=== PATIENT | male | born 1945 | race Caucasian/White ===

== ENCOUNTER → 2017-01-19 | Outpatient (CLI) | payer MEDICARE ==
[2017-01-19 12:16] LABS: HEMATOCRIT 43.8 % (37.9-51.0); HEMOGLOBIN 14.9 g/dL (13.5-17.0); HGB HCT DIFFERENCE 0.9; MEAN CORPUSCULAR HEMOGLOBIN 33.8 pg (27.0-33.4); MEAN CORPUSCULAR VOLUME 99 fl (80-97); RED CELL DISTRIBUTION WIDTH 14.8 % (11.5-14.0)
[2017-01-19 12:49] LABS: ANION GAP 11 (5-19); BLOOD UREA NITROGEN 20 mg/dL (7-20); CALCIUM 9.2 mg/dL (8.4-10.2); CARBON DIOXIDE 28 mmol/L (22-30); CHLORIDE 104 mmol/L (98-107); CREATININE RESULT 0.73 mg/dL (0.52-1.25); GLUCOSE 86 mg/dL (75-110); POTASSIUM 4.5 mmol/L (3.6-5.0); SODIUM 142.5 mmol/L (137-145)
--- NOTE | 2017-01-19 19:38 | EKG REPORT ---
SEVERITY:- BORDERLINE ECG - SINUS RHYTHM PROBABLE LEFT ATRIAL ABNORMALITY BORDERLINE PROLONGED QT INTERVAL : Confirmed by: Dinesh Reilly 19-Jan-2017 19:36:55
== END ==
LOC: OD 11:11
PROVIDERS: ATTEND Orthopaedic Surgery
DX: Z01.810 Encounter for preprocedural cardiovascular examination (principal); Z01.811 Encounter for preprocedural respiratory examination; Z01.812 Encounter for preprocedural laboratory examination; Z01.818 Encounter for other preprocedural examination
CPT/HCPCS: 36415; 80048; 85027; 93005; 93010

== ENCOUNTER → 2017-01-24 | Outpatient (CLI) | payer MEDICARE ==
[2017-01-24 14:09] LABS: PROTHROMBIN TIME 15.7 SEC (11.4-15.4)
== END ==
LOC: OD 13:29
PROVIDERS: ATTEND Orthopaedic Surgery
DX: M80.00XA Age-related osteoporosis with current pathological fracture, unspecified site, initial encounter for fracture (principal)
CPT/HCPCS: 36415; 85610

== ENCOUNTER 2017-01-26 20:00 | Inpatient (IN) | payer MEDICARE ==
--- NOTE | 2017-01-26 20:06 | ER Document Report ---
ED Fall - General Stated Complaint: FALL/LEG PAIN Mode of Arrival: Medic Information source: Patient, Emergency Med Personnel TRAVEL OUTSIDE OF THE [place] IN LAST 30 DAYS: No - HPI Occurred: This evening Where: Home Context: Fell from standing - "LEG GAVE OUT" Associated symptoms: Difficulty walking Location of injury/pain: Hip Quality of pain: Other - "HURTS" - Related data Allergies/Adverse Reactions: No Known Allergies Allergy (Verified 01/26/17 20:24) Past Medical History - General Information source: Patient, Emergency Med Personnel - Social History Smoking Status: Former Smoker Cigarette use (# per day): No Chew tobacco use (# tins/day): No Frequency of alcohol use: None Drug Abuse: None Lives with: Family Family History: Reviewed & Not Pertinent Patient has suicidal ideation: No Patient has homicidal ideation: No - Past Medical History Cardiac Medical History: Reports: Hx Hypertension Denies: Hx Coronary Artery Disease, Hx Heart Attack Pulmonary Medical History: Reports: Hx Asthma - as a child Denies: Hx Bronchitis, Hx COPD, Hx Pneumonia Neurological Medical History: Denies: Hx Cerebrovascular Accident, Hx Seizures Endocrine Medical History: Reports: None Renal/ Medical History: Reports: None Malignancy Medical History: Reports None GI Medical History: Reports: Hx Hepatitis - HEP. C Musculoskeltal Medical History: Reports Hx Arthritis Other: RECENT SPINAL COMPRESSION Fx L-4, VERTEBROPLASTY 01/25 Psychiatric Medical History: Reports: None Past Surgical History: Reports: Hx Cholecystectomy, Other - L-4 VERTEBROPLASTY . Denies: Hx Pacemaker - Immunizations Hx Diphtheria, Pertussis, Tetanus Vaccination: Yes Review of Systems - Review of Systems Constitutional: No symptoms reported EENT: No symptoms reported Cardiovascular: No symptoms reported Respiratory: No symptoms reported Gastrointestinal: No symptoms reported Genitourinary: No symptoms reported Musculoskeletal: See HPI Skin: No symptoms reported Neurological/Psychological: No symptoms reported Physical Exam - Vital signs Vitals: Temp Pulse Resp BP Pulse Ox 98.2 F 20 L 18 153/75 H 94 01/26/17 20:18 01/26/17 20:18 01/26/17 20:18 01/26/17 20:18 01/26/17 20:18 Interpretation: Hypertensive - General General appearance: Appears well, Alert In distress: None - HEENT Head: Normocephalic Eyes: Normal Conjunctiva: Normal Ears: Normal Nasal: Normal Mouth/Lips: Normal Mucous membranes: Dry Neck: Normal, Supple - Respiratory Respiratory status: No respiratory distress Breath sounds: Rhonchi - FEW, BASILAR - Cardiovascular Rhythm: Regular Heart sounds: Normal auscultation Murmur: No - Abdominal Inspection: Obese - Back Back: Normal, Tender - SLIGHTLY, OVER L-4 - Extremities General upper extremity: Normal inspection General lower extremity: Normal inspection Hip: Other - PASSIVE ROM BOTH HIPS PAINLESS Thigh: Normal Knee: Normal Calf: Normal - Neurological Neuro grossly intact: Yes Cognition: Confused, Inattentive Orientation: Disoriented to time [place] Coma Scale Eye Opening: Spontaneous [place] Coma Scale Verbal: Oriented [place] Coma Scale Motor: Obeys Commands [place] Coma Scale Total: 15 Cerebellar coordination: Other - MODERATE INTENTION TREMOR Sensory: Normal, Other - NO SADDLE ANESTHESIA - Psychological Associated symptoms: Agitated, Confused, Tangential speech Notes: SOME OF SPEECH IS NONSENSICAL. WHEN ASKED A QUESTION, OFTEN STOPS ANSWER IN MID -SENTENCE. - Skin Skin Temperature: Warm Skin Moisture: Dry Skin Color: Normal Skin Turgor: Elastic Course - Vital Signs Vital signs: Temp Pulse Resp BP Pulse Ox 98.2 F 78 20 148/76 H 97 01/26/17 20:18 01/27/17 02:45 01/27/17 02:45 01/27/17 02:45 01/27/17 02:45 - Laboratory Result Diagrams: 01/27/17 01:40 01/27/17 01:40 Laboratory results interpreted by me: 01/27/17 01/27/17 01/27/17 01:40 01:40 01:40 MCV 99 H MCH 33.8 H RDW 14.1 H Plt Count 91 L BUN 22 H Total Bilirubin 3.3 H Direct Bilirubin 1.4 H AST 149 H Alkaline Phosphatase 203 H Creatine Kinase 1246 H CK-MB (CK-2) 11.90 H Urine Ketones Urine Blood Salicylates < 1.0 L Acetaminophen < 10 L 01/27/17 02:40 MCV MCH RDW Plt Count BUN Total Bilirubin Direct Bilirubin AST Alkaline Phosphatase Creatine Kinase CK-MB (CK-2) Urine Ketones TRACE H Urine Blood SMALL H Salicylates Acetaminophen - Diagnostic Test Radiology reviewed: Image reviewed, Reports reviewed - EKG Interpretation by [place] EKG shows normal: Sinus rhythm, Intervals, QRS Complexes, ST-T Waves. abnormal : [place] Rate: Normal Rhythm: NSR [place]/QRS: Left axis deviation - BORDERLINE P Waves: LAE - Consults DR. CHANCE Time consulted: 03:30 Consulted provider: will come to ER Discharge - Discharge Clinical Impression: Weakness, Delirium Rhabdomyolysis Qualifiers: Rhabdomyolysis type: traumatic Encounter type: initial encounter Qualified Code (s): T79.6XXA - Traumatic ischemia of muscle, initial encounter Condition: Good Disposition: ADMITTED INPATIENT Admitting Provider: Hospitalist Unit Admitted: [facility]
[2017-01-26] MEDS ORDERED: ONDANSETRON 4 MG TAB.RAPDIS PO ONE (20:20)
[2017-01-26] MEDS ORDERED: HYDROMORPHONE HCL INJ/PF 2 MG/ML AMPULE IV ONE (20:20)
[2017-01-26] MEDS ORDERED: LORAZEPAM INJ 2 MG/1 ML VIAL IM ONE (21:40)
[2017-01-27 02:01] LABS: ABSOLUTE BASOPHILS # (AUTO) 0.1 10^3/uL (0.0-0.2); ABSOLUTE EOSINOPHILS # (AUTO) 0.1 10^3/uL (0.0-0.6); ABSOLUTE LYMPHOCYTES (AUTO) 2.1 10^3/uL (0.5-4.7); ABSOLUTE MONOCYTES (AUTO) 1.1 10^3/uL (0.1-1.4); ABSOLUTE NEUT (AUTO) 6.5 10^3/uL (1.7-8.2); BASOPHILS % (AUTO) 0.5 % (0-2); EOSINOPHILS % (AUTO) 0.7 % (0-6); HEMATOCRIT 48.6 % (37.9-51.0); HEMOGLOBIN 16.5 g/dL (13.5-17.0); HGB HCT DIFFERENCE 0.9; LYMPHOCYTES % (AUTO) 21.4 % (13-45); MEAN CORPUSCULAR HEMOGLOBIN 33.8 pg (27.0-33.4); MEAN CORPUSCULAR VOLUME 99 fl (80-97); MONOCYTES % (AUTO) 11.5 % (3-13); RED CELL DISTRIBUTION WIDTH 14.1 % (11.5-14.0); SEGMENTED NEUTROPHILS % (AUTO) 65.9 % (42-78); WHITE BLOOD COUNT 9.9 10^3/uL (4.0-10.5)
[2017-01-27 02:04] LABS: ALANINE AMINOTRANSFERASE 41 U/L (21-72); ALBUMIN 3.8 g/dL (3.5-5.0); ALKALINE PHOSPHATASE 203 U/L (38-126); ANION GAP 10 (5-19); ASPARTATE AMINO TRANSFERASE 149 U/L (17-59); BILIRUBIN,DIRECT 1.4 mg/dL (0.0-0.4); BILIRUBIN,TOTAL 3.3 mg/dL (0.2-1.3); BLOOD UREA NITROGEN 22 mg/dL (7-20); CALCIUM 9.9 mg/dL (8.4-10.2); CARBON DIOXIDE 30 mmol/L (22-30); CHLORIDE 101 mmol/L (98-107); CREATINE KINASE 1246 U/L (55-170); CREATININE RESULT 0.77 mg/dL (0.52-1.25); GLUCOSE 96 mg/dL (75-110); POTASSIUM 4.7 mmol/L (3.6-5.0); SODIUM 140.5 mmol/L (137-145); TOTAL PROTEIN 8.1 g/dL (6.3-8.2)
[2017-01-27 02:07] LABS: ALCOHOL < 10 mg/dL (NONE DETECTED)
[2017-01-27 02:24] LABS: TROPONIN I < 0.012 ng/mL
[2017-01-27] MEDS ORDERED: NORMAL SALINE 1000 ML 1,000 ML IV ONE (03:00)
[2017-01-27 03:24] LABS: APPEARANCE,URINE CLEAR; BILIRUBIN,URINE NEGATIVE (NEGATIVE); GLUCOSE, URINE NEGATIVE (NEGATIVE); KETONES,URINE TRACE mg/dL (NEGATIVE); LEUKOCYTE ESTERASE,URINE NEGATIVE (NEGATIVE); NITRITE,URINE NEGATIVE (NEGATIVE); PROTEIN,URINE NEGATIVE (NEGATIVE); URINE SPECIFIC GRAVITY 1.008; UROBILINOGEN,URINE NEGATIVE mg/dL (<2.0)
[2017-01-27 03:37] LABS: URINE BARBITURATES SCREEN NEGATIVE; URINE METHADONE SCREEN NEGATIVE; URINE PHENCYCLIDINE SCREEN NEGATIVE
[2017-01-27 03:46] LABS: ADD ON TESTING BLD IN LAB ACKNOWLEDGE
[2017-01-27 03:46] LABS: URINE OPIATES LOW UNCONFIRMED POSITIVE
[2017-01-27 03:54] LABS: MAGNESIUM 2.1 mg/dL (1.6-2.3)
[2017-01-27] MEDS ORDERED: MAGNESIUM HYDROXIDE SUSP 30 ML UDCUP PO PRN (05:02)
[2017-01-27] MEDS ORDERED: ACETAMINOPHEN 325 MG TABLET PO PRN (05:08)
--- NOTE | 2017-01-27 05:23 | PDOC H&P ---
History of Present Illness Admission Date/PCP: 01/27/17 03:37 Rosalinda Paul NP Patient complains of: fall X 2, back pain History of Present Illness: RADHA YEBOAH JR is a 71 year old male with past medical history remarkable for reported hypertension, childhood asthma, arthritis, and hepatitis C, status post vertebroplasty on the fourth of this month for an L4 compression fracture, who presents to the emergency room for evaluation of above complaints. Patient has been discussed with emergency room physician who evaluated the patient. Patient is globally disoriented and is able to provide no history whatsoever in terms of acute or chronic events, review of systems, personal habits, family history, etc. No friends or family are present. No old inpatient records available for review. When asked what year it was, "1942;" when asked where he was, "[address] When asked if anything had happened earlier in the day, he stated "nothing eventful." When I asked him if he had fallen, he then stated "yes." Denied loss of consciousness or head trauma. States his legs "just gave out." Also denied nausea vomiting, fever chills, diarrhea or dysuria. Denied headache chest or abdominal pain. answers to Number of other basic questions were not related to the questions. , Emergency room physician notes reviewed. No further information available this point in time. . Laboratory results are listed in [facility] and are reviewed. X-ray summary results are listed below, with full report(s) reviewed. . EKG reviewed. And compared to a tracing from January 19 of this year. Social history/personal habits: . No children. States he lives with his landlord. No tobacco use since 2009. Denies alcohol or illicit drug use. Allergies/adverse reactions NKDA. Home medications Home medications initially autopopulated into [facility] may not accurately reflect patient's true medications, dosages, and/or frequencies. 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 Unfortunately, patient uncertain of medications/dosages/frequencies. REVIEW OF SYSTEMS: See history and present illness.No further information available this point in time. PHYSICAL EXAMINATION: Blood pressure 139/85. 96% saturation on room air. Pulse 84 and regular. Respirations are 16 and unlabored. 5 feet 9 inches tall. 99.8 kg. BMI 32.5 kg /m. Temperature 98.2. Obese otherwise well-developed male appearing a number of years younger than his stated age. Pleasant awake alert and cooperative. Somewhat anxious, although no dash agitation. Complaining of lower back pain. Also complaining occasionally of right hip pain. Skin is warm and dry. No grossly obvious evidence of rash in areas of skin examined. No subcutaneous nodules palpated. ENT: Hearing grossly normal to normal conversation. Tongue midline on protrusion pink and slightly tacky. No Kinney sign. Eyes: No scleral icterus. Pupils equal and reactive to light at 4 mm. [place] conjunctivae. No raccoon eyes. Neck is supple and nontender to gentle active range of motion and palpation. Midline trachea. No palpable thyroid nodule mass enlargement or tenderness. Lymphatic: No palpable cervical or clavicular nodes. Neck and lymphatic exams limited by patient body habitus. Psychiatric: Difficult to adequately evaluate due to his current status. See history and present illness. Lungs: Auscultation reveals clear and equal breath sounds bilaterally. No use of accessory respiratory muscles. Cardiovascular: Heart regular rate and rhythm, without gallop murmur or rub. No carotid or abdominal aortic bruits. No ankle or pedal edema. palpable dorsalis pedis pulses. Abdomen: soft, obese, slightly distended nontender with positive bowel sounds. Unable to adequately evaluate abdomen for masses or organomegaly due to distention and body habitus. Extremities: Hands and feet are warm and dry. No calf tenderness to compression. No grossly obvious visual evidence of calf swelling. Gentle manipulation of upper and lower extremities fails to reveal any obvious evidence of injury or instability to involved major joints, including both active and passive range of motion right hip. Neurologic: Moves all 4 extremities grossly normally. Patellar reflexes absent. Absent Babinski. Light touch can't be adequately determined due to his current mental status.. Dorsiflexion and plantarflexion of feet 5 / 5 and symmetric. No rigidity. No nystagmus. Past Medical History Past Medical History: See history and present illness. No further information available this point in time, except as noted below. Cardiac Medical History: Reports: Hypertension Denies: Coronary Artery Disease, Myocardial Infarction Pulmonary Medical History: Reports: Asthma - as a child Denies: Bronchitis, Chronic Obstructive Pulmonary Disease (COPD), Pneumonia Neurological Medical History: Denies: Seizures Endocrine Medical History: Reports: None Renal/ Medical History: Reports: None Malignancy Medical History: Reports: None GI Medical History: Reports: None, Hepatitis - HEP. C Musculoskeltal Medical History: Reports: Arthritis Psychiatric Medical History: Reports: None Hematology: Denies: Anemia Past Surgical History Past Surgical History: Reports: Cholecystectomy, Orthopedic Surgery - L-4 VERTEBROPLASTY 01/25/17 Denies: Pacemaker Social History Information Source: Patient, Emergency Med Personnel, [facility] Records Lives with: Other - His landlord Smoking Status: Former Smoker Frequency of Alcohol Use: None Drugs: None - Advance Directive Resuscitation Status: Full Code Surrogate healthcare decision maker:: Uncertain at this point in time. Family History Family History: Reviewed & Not Pertinent Parental Family History Reviewed: No - patient can't provide reliable information. Children Family History Reviewed: NA Sibling(s) Family History Reviewed.: No - patient can't provide reliable information. Medication/Allergy Home Medications: Sertraline HCl [Zoloft 50 Mg Tablet] 50 mg PO DAILY 08/12/12 Oxycodone HCl/Acetaminophen [Percocet 5-325 mg Tablet] 1 tab PO Q4H 09/11/12 Furosemide [Furosemide] 20 mg PO DAILY 01/27/17 Nadolol [Nadolol] 40 mg PO DAILY 01/27/17 Pramipexole Di-HCl [Pramipexole Dihydrochloride] 0.25 mg PO DAILY 01/27/17 Spironolactone [Spironolactone] 50 mg PO DAILY 01/27/17 Tamsulosin HCl [Tamsulosin HCl] 0.4 mg PO DAILY 01/27/17 Tizanidine HCl [Tizanidine HCl] 4 mg PO TID 01/27/17 Allergies/Adverse Reactions: No Known Allergies Allergy (Verified 01/26/17 20:24) Physical Exam Vital Signs: Temp Pulse Resp BP Pulse Ox 98.2 F 78 20 148/76 H 97 01/26/17 20:18 01/27/17 02:45 01/27/17 02:45 01/27/17 02:45 01/27/17 02:45 Results Impressions: Lumbar Spine X-Ray 01/26/17 20:19 IMPRESSION: SPONDYLOSIS WITHOUT BONE LESION OR FRACTURE. Head CT 01/27/17 00:14 IMPRESSION: No acute findings. Chest X-Ray 01/27/17 00:16 IMPRESSION: Pulmonary vascular congestion. Assessment & Plan - Diagnosis (1) Acute encephalopathy Is this a current diagnosis for this admission?: YesPlan: Uncertain etiology at this point in time. Maybe an element of chronic underlying dementia. Ammonia level pending. Supportive care at this point in time. (2) Back pain Qualifiers: Back pain location: low back pain Chronicity: unspecified Back pain laterality: unspecified Sciatica presence: unspecified whether sciatica present Qualified Code(s): M54.5 - Low back pain Is this a current diagnosis for this admission?: YesPlan: Suspected due to recent L4 compression fracture, along with subsequent vertebroplasty. When necessary pain medication. (3) Elevated LFTs Is this a current diagnosis for this admission?: YesPlan: Suspect due to underlying hepatitis C. Follow-up chemistry. (4) Fall Qualifiers: Encounter type: initial encounter Qualified Code(s): W19.XXXA - Unspecified fall, initial encounter Is this a current diagnosis for this admission?: YesPlan: Physical therapy consult. I have strongly encouraged patient not to get out of bed without notifying staff , to avoid a fall with injury. Knee high SCDs for DVT prophylaxis; with underlying thrombocytopenia, will forego medical prophylaxis at this point in time. Impression and plans were discussed with patient, who concurs. Time spent in evaluation and management of patient: 58 minutes. (5) Rhabdomyolysis Qualifiers: Rhabdomyolysis type: traumatic Encounter type: initial encounter Qualified Code(s): T79.6XXA - Traumatic ischemia of muscle, initial encounter Is this a current diagnosis for this admission?: YesPlan: IV fluids. Serial CPK. (6) Thrombocytopenia Is this a current diagnosis for this admission?: YesPlan: Follow-up CBC with differential. (7) Hepatitis C Qualifiers: Viral hepatitis chronicity: chronic Hepatic coma status: without hepatic coma Qualified Code(s): B18.2 - Chronic viral hepatitis C Is this a current diagnosis for this admission?: Yes - Inpatient Certification Based on my medical assessment, after consideration of the patient's comorbidities, presenting symptoms, or acuity I expect that the services needed warrant INPATIENT care.: Yes I certify that my determination is in accordance with my understanding of Medicare's requirements for reasonable and necessary INPATIENT services [42 CFR 412.3e].: Yes Medical Necessity: Need Close Monitoring Due to Risk of Patient Decompensation, Need For IV Fluids, Risk of Complication if Not Cared For in Hospital, Risk of Diagnosis Which Will Require Inpatient Eval/Care/Monitoring Post Hospital Care: D/C or Transfer Summary
[2017-01-27] MEDS: NORMAL SALINE 1000 ML 1,000 ML IV PRN ×3 (05:24→10:59)
[2017-01-27] MEDS ORDERED: THIAMINE HCL 100 MG TABLET PO ONE (06:00)
[2017-01-27 06:32] LABS: PARTIAL THROMBOPLASTIN TIME 32.5 SEC (23.5-35.8); PROTHROMBIN TIME 15.6 SEC (11.4-15.4)
[2017-01-27 07:09] LABS: TROPONIN I < 0.012 ng/mL
--- NOTE | 2017-01-27 07:50 | EKG REPORT ---
SEVERITY:- ABNORMAL ECG - SINUS RHYTHM PROBABLE LEFT ATRIAL ABNORMALITY BORDERLINE LEFT AXIS DEVIATION CONSIDER OLD INFERIOR IA : Confirmed by: Lyle Faye MD 27-Jan-2017 07:50:08
[2017-01-27] MEDS: FOLIC ACID 1 MG TABLET PO SCH (10:03)
[2017-01-27] MEDS: THIAMINE HCL 100 MG TABLET PO SCH (10:03)
[2017-01-27] MEDS: DOCUSATE SODIUM 100 MG CAPSULE PO SCH ×2 (10:03→17:20)
[2017-01-27] MEDS: MULTIVITAMIN TABLET PO SCH (10:03)
[2017-01-27] MEDS ORDERED: FUROSEMIDE INJ/PF 40 MG/4 ML SDV IV ONE (10:45)
[2017-01-27] MEDS: LACTULOSE SYRUP 20 GM/30 ML UDCUP PO SCH ×3 (11:37→17:20)
[2017-01-27] MEDS: KETOROLAC TROMETHAMINE INJ/PF 30 MG/1 ML SDV IV PRN ×3 (11:38→23:35)
[2017-01-27 11:57] LABS: ALANINE AMINOTRANSFERASE 48 U/L (21-72); ALBUMIN 3.3 g/dL (3.5-5.0); ALKALINE PHOSPHATASE 163 U/L (38-126); ANION GAP 9 (5-19); ASPARTATE AMINO TRANSFERASE 146 U/L (17-59); BILIRUBIN,TOTAL 3.3 mg/dL (0.2-1.3); BLOOD UREA NITROGEN 20 mg/dL (7-20); CALCIUM 9.1 mg/dL (8.4-10.2); CARBON DIOXIDE 27 mmol/L (22-30); CHLORIDE 103 mmol/L (98-107); CREATINE KINASE 1423 U/L (55-170); CREATININE RESULT 0.71 mg/dL (0.52-1.25); GLUCOSE 89 mg/dL (75-110); POTASSIUM 4.3 mmol/L (3.6-5.0); SODIUM 138.8 mmol/L (137-145); TOTAL PROTEIN 7.3 g/dL (6.3-8.2)
--- NOTE | 2017-01-27 13:13 | PDOC PROGRESS REPORT ---
Subjective Progress Note for:: 01/27/17 Subjective:: The patient was seen earlier today on rounds. The patient would awaken and speak but was noted follow sleep before finishing his thought. Patient was able to give very specific details regarding his hepatitis treatment but then was confused about his current location. The patient denies any nausea, vomiting, diarrhea, shortness of breath, dizziness, chest pain, heart palpitations, fevers, or chills. The patient has remained afebrile. Blood pressures have been in a good range. When prompted the patient voices no other concerns at this time. Review of systems: The rest of the review of systems is negative. Physical Exam Vital Signs: Temp Pulse Resp BP Pulse Ox 99.0 F 72 20 125/73 98 01/27/17 07:27 01/27/17 07:27 01/27/17 07:27 01/27/17 07:27 01/27/17 07:27 Intake & Output 01/25/17 01/26/17 01/27/17 23:59 23:59 23:59 Output Total 875 Balance -875 General appearance: PRESENT: no acute distress, well-developed, well-nourished Head exam: PRESENT: atraumatic, normocephalic Eye exam: PRESENT: conjunctiva pale, EOMI, nystagmus, PERRLA, scleral icterus Ear exam: PRESENT: normal external ear exam Mouth exam: PRESENT: moist, tongue midline Neck exam: ABSENT: carotid bruit, JVD, lymphadenopathy, thyromegaly Respiratory exam: PRESENT: crackles - Bilateral basal crackles, symmetrical, unlabored. ABSENT: rales, rhonchi, tachypnea, wheezes Cardiovascular exam: PRESENT: RRR. ABSENT: diastolic murmur, rubs, systolic murmur Pulses: PRESENT: normal dorsalis pedis pul Vascular exam: PRESENT: normal capillary refill GI/Abdominal exam: PRESENT: ascites, firm, normal bowel sounds, soft. ABSENT: distended, guarding, mass, rebound, tenderness Rectal exam: PRESENT: deferred Extremities exam: PRESENT: full ROM. ABSENT: calf tenderness, clubbing, pedal edema Neurological exam: PRESENT: alert, awake, oriented to person, oriented to place , other - Periodic flinching. ABSENT: motor sensory deficit Psychiatric exam: PRESENT: unusual affect. ABSENT: homicidal ideation, suicidal ideation Skin exam: PRESENT: dry, intact, jaundice, warm. ABSENT: cyanosis, rash Results Laboratory Results: 01/27/17 11:15 01/27/17 01/27/17 06:18 11:15 Sodium 138.8 Potassium 4.3 Chloride 103 Carbon Dioxide 27 Anion Gap 9 BUN 20 Creatinine 0.71 Est GFR ( Amer) > 60 Est GFR (Non-Af Amer) > 60 Glucose 89 Calcium 9.1 Total Bilirubin 3.3 H AST 146 H ALT 48 Alkaline Phosphatase 163 H Ammonia 29.2 Total Protein 7.3 Albumin 3.3 L 01/27/17 01/27/17 01/27/17 06:18 06:18 11:15 Creatine Kinase 1564 H 1423 H CK-MB (CK-2) 11.50 H Troponin I < 0.012 Impressions: Lumbar Spine X-Ray 01/26/17 20:19 IMPRESSION: SPONDYLOSIS WITHOUT BONE LESION OR FRACTURE. Head CT 01/27/17 00:14 IMPRESSION: No acute findings. Chest X-Ray 01/27/17 00:16 IMPRESSION: Pulmonary vascular congestion. Assessment & Plan - Diagnosis (1) Acute encephalopathy Is this a current diagnosis for this admission?: YesPlan: Most likely multifocal with a component of hepatic encephalopathy as well as toxic encephalopathy secondary to benzodiazepines and opiates. The patient does have a marginal ammonia level. Will schedule 3 doses of lactulose and follow. Will hold substances for now. 01/27/17 01/27/17 01/27/17 01:40 02:40 06:18 MCV 99 H Ammonia 29.2 Urine Opiates Screen UNCONFIRMED POSITIVE U Benzodiazepines Scrn UNCONFIRMED POSITIVE (2) Cirrhosis Qualifiers: Hepatic cirrhosis type: other cirrhosis Qualified Code(s): K74.69 - Other cirrhosis of liver Is this a current diagnosis for this admission?: YesPlan: Secondary to hepatitis C. Patient does appear to have some ascites on examination although not severe. Will continue to monitor if this worsens will arrange paracentesis. 01/27/17 01/27/17 01/27/17 01:40 06:18 06:18 MCV 99 H Plt Count 91 L INR 1.20 Ammonia 29.2 01/27/17 11:15 Total Bilirubin 3.3 H Direct Bilirubin 1.0 H AST 146 H Alkaline Phosphatase 163 H Albumin 3.3 L Home Meds Table Furosemide 20 mg PO DAILY 01/27/17 Nadolol 40 mg PO DAILY 01/27/17 Spironolactone 50 mg PO DAILY 01/27/17 (3) Hepatitis C Qualifiers: Viral hepatitis chronicity: chronic Hepatic coma status: without hepatic coma Qualified Code(s): B18.2 - Chronic viral hepatitis C Is this a current diagnosis for this admission?: YesPlan: The patient has completed therapy with ribavirin and pegylated interferon. The patient's last checkup there was no apparent viral load however he is unable to give me a estimate of how long ago this was. (4) Pulmonary vascular congestion Plan: Most likely a combination of underlying cirrhosis as well as volume resuscitation for rhabdo. Will diurese the patient and follow. (5) Back pain Qualifiers: Back pain location: low back pain Chronicity: unspecified Back pain laterality: unspecified Sciatica presence: unspecified whether sciatica present Qualified Code(s): M54.5 - Low back pain Is this a current diagnosis for this admission?: Yes (6) Fall Qualifiers: Encounter type: initial encounter Qualified Code(s): W19.XXXA - Unspecified fall, initial encounter Is this a current diagnosis for this admission?: Yes (7) Rhabdomyolysis Qualifiers: Rhabdomyolysis type: traumatic Encounter type: initial encounter Qualified Code(s): T79.6XXA - Traumatic ischemia of muscle, initial encounter Is this a current diagnosis for this admission?: YesPlan: This appears mild. Slight improvement. Unfortunately the patient is not able to tolerate high volume even his overload. The patient's creatinine has not bumped. Will defer IV fluids for now and monitor. - Time Time Spent with patient: 1005 through 1045 Time Spent with patient: 35 or more minutes Medications reviewed and adjusted accordingly: Yes Disposition: The patient is a full code. Pending patient's symptomatology and diagnostic findings will reevaluate in the a.m.
[2017-01-28 05:18] LABS: HEMATOCRIT 42.7 % (37.9-51.0); HEMOGLOBIN 14.8 g/dL (13.5-17.0); HGB HCT DIFFERENCE 1.7; MEAN CORPUSCULAR HEMOGLOBIN 33.9 pg (27.0-33.4); MEAN CORPUSCULAR HGB CONC 34.6 g/dL (32.0-36.0); MEAN CORPUSCULAR VOLUME 98 fl (80-97); RED BLOOD COUNT 4.36 10^6/uL (4.35-5.55); RED CELL DISTRIBUTION WIDTH 14.2 % (11.5-14.0)
[2017-01-28 05:23] LABS: ALANINE AMINOTRANSFERASE 48 U/L (21-72); ALKALINE PHOSPHATASE 154 U/L (38-126); ANION GAP 10 (5-19); ASPARTATE AMINO TRANSFERASE 182 U/L (17-59); BILIRUBIN,DIRECT 0.7 mg/dL (0.0-0.4); BILIRUBIN,TOTAL 2.1 mg/dL (0.2-1.3); BLOOD UREA NITROGEN 27 mg/dL (7-20); CALCIUM 9.2 mg/dL (8.4-10.2); CARBON DIOXIDE 28 mmol/L (22-30); CHLORIDE 105 mmol/L (98-107); CREATININE RESULT 0.94 mg/dL (0.52-1.25); GLUCOSE 121 mg/dL (75-110); MAGNESIUM 2.4 mg/dL (1.6-2.3); POTASSIUM 3.8 mmol/L (3.6-5.0); SODIUM 143.1 mmol/L (137-145); TOTAL PROTEIN 6.4 g/dL (6.3-8.2)
[2017-01-28 05:32] LABS: CREATINE KINASE 2373 U/L (55-170)
[2017-01-28] MEDS: KETOROLAC TROMETHAMINE INJ/PF 30 MG/1 ML SDV IV PRN ×2 (05:57→11:51)
[2017-01-28] MEDS: NORMAL SALINE 1000 ML 1,000 ML IV PRN ×3 (07:28→21:38)
[2017-01-28] MEDS ORDERED: OXYCODONE HCL IR 5 MG TABLET PO ONE (12:00)
[2017-01-28] MEDS: TAMSULOSIN HCL 0.4 MG CAP.SR.24H PO SCH (12:06)
[2017-01-28] MEDS: FOLIC ACID 1 MG TABLET PO SCH (12:07)
[2017-01-28] MEDS: MULTIVITAMIN TABLET PO SCH (12:07)
[2017-01-28] MEDS: SERTRALINE HCL 50 MG TABLET PO SCH (12:07)
[2017-01-28] MEDS: THIAMINE HCL 100 MG TABLET PO SCH (12:07)
[2017-01-28] MEDS: DOCUSATE SODIUM 100 MG CAPSULE PO SCH ×2 (12:09→18:12)
[2017-01-28] MEDS: NADOLOL 40 MG TABLET PO SCH (12:09)
[2017-01-28] MEDS ORDERED: MAG HYDROX/AL HYDROX/SIMETH SUSP 30 ML UDCUP PO ONE (13:15)
[2017-01-28] MEDS ORDERED: LIDOCAINE 2% VISCOUS SOLN 20 ML UDCUP PO ONE (13:15)
[2017-01-28] MEDS: ALBUMIN HUMAN 50 ML IV SCH ×4 (13:17→15:41)
[2017-01-28 13:50] LABS: HEMATOCRIT 39.1 % (37.9-51.0); HEMOGLOBIN 13.4 g/dL (13.5-17.0); HGB HCT DIFFERENCE 1.1; MEAN CORPUSCULAR HEMOGLOBIN 33.9 pg (27.0-33.4); MEAN CORPUSCULAR HGB CONC 34.4 g/dL (32.0-36.0); MEAN CORPUSCULAR VOLUME 99 fl (80-97); RED BLOOD COUNT 3.97 10^6/uL (4.35-5.55); RED CELL DISTRIBUTION WIDTH 13.7 % (11.5-14.0); WHITE BLOOD COUNT 9.5 10^3/uL (4.0-10.5)
--- NOTE | 2017-01-28 15:01 | PDOC PROGRESS REPORT ---
Subjective Progress Note for:: 01/28/17 Subjective:: The patient was seen earlier today on rounds. Patient's main concern is his lower back pain. The patient is able to answer where he is in his location appropriately however not completely clear with the details. The patient denies any nausea, vomiting, diarrhea, shortness of breath, dizziness, chest pain, heart palpitations, fevers, or chills. The patient has remained afebrile. Blood pressures have been in a good range. When prompted the patient voices no other concerns at this time. Review of systems: The rest of the review of systems is negative. Physical Exam Vital Signs: Temp Pulse Resp BP Pulse Ox 98.6 F 69 18 94/59 L 91 L 01/28/17 12:38 01/28/17 12:38 01/28/17 12:38 01/28/17 12:38 01/28/17 12:38 Intake & Output 01/26/17 01/27/17 01/28/17 23:59 23:59 23:59 Intake Total 2060 2021 Output Total 3375 375 Balance -1314 1647 Weight 97 kg General appearance: PRESENT: no acute distress, well-developed, well-nourished Head exam: PRESENT: atraumatic, normocephalic Eye exam: PRESENT: conjunctiva pale, EOMI, nystagmus, PERRLA, scleral icterus Ear exam: PRESENT: normal external ear exam Mouth exam: PRESENT: moist, tongue midline Neck exam: ABSENT: carotid bruit, JVD, lymphadenopathy, thyromegaly Respiratory exam: PRESENT: crackles - Bilateral basal crackles, symmetrical, unlabored. ABSENT: rales, rhonchi, tachypnea, wheezes Cardiovascular exam: PRESENT: RRR. ABSENT: diastolic murmur, rubs, systolic murmur Pulses: PRESENT: normal dorsalis pedis pul Vascular exam: PRESENT: normal capillary refill GI/Abdominal exam: PRESENT: ascites, firm, normal bowel sounds, soft. ABSENT: distended, guarding, mass, rebound, tenderness Rectal exam: PRESENT: deferred Extremities exam: PRESENT: full ROM. ABSENT: calf tenderness, clubbing, pedal edema Neurological exam: PRESENT: alert, awake, oriented to person, oriented to place , other - Periodic flinching. ABSENT: motor sensory deficit Psychiatric exam: PRESENT: unusual affect. ABSENT: homicidal ideation, suicidal ideation Skin exam: PRESENT: dry, intact, jaundice, warm. ABSENT: cyanosis, rash Results Laboratory Results: 01/28/17 13:31 01/28/17 04:09 01/28/17 01/28/17 01/28/17 04:09 04:09 13:20 WBC 6.0 RBC 4.36 Hgb 14.8 Hct 42.7 MCV 98 H MCH 33.9 H MCHC 34.6 RDW 14.2 H Plt Count 55 L Sodium 143.1 Potassium 3.8 Chloride 105 Carbon Dioxide 28 Anion Gap 10 BUN 27 H Creatinine 0.94 Est GFR ( Amer) > 60 Est GFR (Non-Af Amer) > 60 Glucose 121 H Calcium 9.2 Magnesium 2.4 H Total Bilirubin 2.1 H AST 182 H ALT 48 Alkaline Phosphatase 154 H Total Protein 6.4 Albumin 3.0 L Stool Occult Blood POSITIVE 01/28/17 13:31 WBC 9.5 RBC 3.97 L Hgb 13.4 L Hct 39.1 MCV 99 H MCH 33.9 H MCHC 34.4 RDW 13.7 Plt Count 90 L Sodium Potassium Chloride Carbon Dioxide Anion Gap BUN Creatinine Est GFR ( Amer) Est GFR (Non-Af Amer) Glucose Calcium Magnesium Total Bilirubin AST ALT Alkaline Phosphatase Total Protein Albumin Stool Occult Blood 01/27/17 01/27/17 01/27/17 06:18 06:18 11:15 Creatine Kinase 1564 H 1423 H CK-MB (CK-2) 11.50 H Troponin I < 0.012 01/28/17 04:09 Creatine Kinase 2373 H CK-MB (CK-2) Troponin I Impressions: Lumbar Spine X-Ray 01/26/17 20:19 IMPRESSION: SPONDYLOSIS WITHOUT BONE LESION OR FRACTURE. Head CT 01/27/17 00:14 IMPRESSION: No acute findings. Chest X-Ray 01/27/17 00:16 IMPRESSION: Pulmonary vascular congestion. Assessment & Plan - Diagnosis (1) Acute encephalopathy Is this a current diagnosis for this admission?: YesPlan: Improved. Most likely multifocal with a component of hepatic encephalopathy as well as toxic encephalopathy secondary to benzodiazepines and opiates. The patient had a marginal ammonia level. Cover with lactulose 01/27/17 01/27/17 01/27/17 01:40 02:40 06:18 MCV 99 H Ammonia 29.2 Urine Opiates Screen UNCONFIRMED POSITIVE U Benzodiazepines Scrn UNCONFIRMED POSITIVE (2) Cirrhosis Qualifiers: Hepatic cirrhosis type: other cirrhosis Qualified Code(s): K74.69 - Other cirrhosis of liver Is this a current diagnosis for this admission?: YesPlan: Secondary to hepatitis C. Patient does appear to have some ascites on examination although not severe. Will continue to monitor if this worsens will arrange paracentesis. Will add albumin 01/27/17 01/27/17 01/27/17 01:40 06:18 06:18 MCV 99 H Plt Count 91 L INR 1.20 Ammonia 29.2 01/27/17 11:15 Total Bilirubin 3.3 H Direct Bilirubin 1.0 H AST 146 H Alkaline Phosphatase 163 H Albumin 3.3 L Home Meds Table Furosemide 20 mg PO DAILY 01/27/17 Nadolol 40 mg PO DAILY 01/27/17 Spironolactone 50 mg PO DAILY 01/27/17 (3) Hepatitis C Qualifiers: Viral hepatitis chronicity: chronic Hepatic coma status: without hepatic coma Qualified Code(s): B18.2 - Chronic viral hepatitis C Is this a current diagnosis for this admission?: YesPlan: The patient has completed therapy with ribavirin and pegylated interferon. The patient's last checkup there was no apparent viral load however he is unable to give me a estimate of how long ago this was. (4) Pulmonary vascular congestion Plan: Most likely a combination of underlying cirrhosis as well as volume resuscitation for rhabdo. She was diuresed yesterday. Proceed with caution with hydration. (5) Back pain Qualifiers: Back pain location: low back pain Chronicity: unspecified Back pain laterality: unspecified Sciatica presence: unspecified whether sciatica present Qualified Code(s): M54.5 - Low back pain Is this a current diagnosis for this admission?: YesPlan: Will start with a very small dose of oxycodone (6) Fall Qualifiers: Encounter type: initial encounter Qualified Code(s): W19.XXXA - Unspecified fall, initial encounter Is this a current diagnosis for this admission?: Yes (7) Rhabdomyolysis Qualifiers: Rhabdomyolysis type: traumatic Encounter type: initial encounter Qualified Code(s): T79.6XXA - Traumatic ischemia of muscle, initial encounter Is this a current diagnosis for this admission?: YesPlan: The patient's CK is elevated. This is going to be difficult to hydrate given the patient's cirrhosis. Will increase IV fluids but add albumin. (8) Lower GI bleed Is this a current diagnosis for this admission?: YesPlan: Was made aware by nursing staff the patient had had a large bloody bowel movement. Will obtain stat CBC consult colorectal surgery. Have a high suspicion that this is secondary to the patient's large bowel movements and thrombocytopenia. - Time Time Spent with patient: 35 or more minutes Medications reviewed and adjusted accordingly: Yes
--- NOTE | 2017-01-28 16:35 | Progress Note ---
Provider Note Provider Note: Discussed patient with surgeon in the absence of nurse practitioner, and he informs me patient should be seen by GI tomorrow. Patient's vital signs currently stable 98.6, 72, 144/75, 94% on room air, and 18 respirations. Will obtain CBC, PT/INR, PTT and follow CBC clinically. Patient is still having some peripheral per rectum, but complains of no pain according to nursing staff.
[2017-01-28 17:07] LABS: PROTHROMBIN TIME 17.9 SEC (11.4-15.4)
[2017-01-28 17:08] LABS: PARTIAL THROMBOPLASTIN TIME 36.9 SEC (23.5-35.8)
[2017-01-28 17:12] LABS: ABSOLUTE BASOPHILS # (AUTO) 0.1 10^3/uL (0.0-0.2); ABSOLUTE EOSINOPHILS # (AUTO) 0.2 10^3/uL (0.0-0.6); ABSOLUTE LYMPHOCYTES (AUTO) 1.6 10^3/uL (0.5-4.7); ABSOLUTE MONOCYTES (AUTO) 0.6 10^3/uL (0.1-1.4); ABSOLUTE NEUT (AUTO) 4.4 10^3/uL (1.7-8.2); BASOPHILS % (AUTO) 0.8 % (0-2); HEMATOCRIT 34.7 % (37.9-51.0); HGB HCT DIFFERENCE 1.3; LYMPHOCYTES % (AUTO) 22.7 % (13-45); MEAN CORPUSCULAR HEMOGLOBIN 33.8 pg (27.0-33.4); MEAN CORPUSCULAR HGB CONC 34.4 g/dL (32.0-36.0); MEAN CORPUSCULAR VOLUME 98 fl (80-97); MONOCYTES % (AUTO) 9.2 % (3-13); RED BLOOD COUNT 3.54 10^6/uL (4.35-5.55); SEGMENTED NEUTROPHILS % (AUTO) 64.3 % (42-78); WHITE BLOOD COUNT 6.9 10^3/uL (4.0-10.5)
[2017-01-28] MEDS ORDERED: SUCRALFATE SUSP 1 GM/10 ML UDCUP PO ONE (18:00)
[2017-01-28] MEDS: ONDANSETRON HCL INJ/PF 4 MG/2 ML SDV IV PRN (18:05)
[2017-01-28] MEDS: OXYCODONE HCL IR 5 MG TABLET PO PRN (18:06)
[2017-01-28 20:13] LABS: ABSOLUTE BASOPHILS # (AUTO) 0.1 10^3/uL (0.0-0.2); ABSOLUTE EOSINOPHILS # (AUTO) 0.3 10^3/uL (0.0-0.6); ABSOLUTE LYMPHOCYTES (AUTO) 1.8 10^3/uL (0.5-4.7); ABSOLUTE MONOCYTES (AUTO) 0.8 10^3/uL (0.1-1.4); ABSOLUTE NEUT (AUTO) 5.2 10^3/uL (1.7-8.2); BASOPHILS % (AUTO) 0.8 % (0-2); EOSINOPHILS % (AUTO) 3.7 % (0-6); HEMATOCRIT 29.7 % (37.9-51.0); HEMOGLOBIN 10.4 g/dL (13.5-17.0); HGB HCT DIFFERENCE 1.5; LYMPHOCYTES % (AUTO) 21.7 % (13-45); MEAN CORPUSCULAR HEMOGLOBIN 34.1 pg (27.0-33.4); MEAN CORPUSCULAR HGB CONC 35.1 g/dL (32.0-36.0); MEAN CORPUSCULAR VOLUME 97 fl (80-97); MONOCYTES % (AUTO) 9.5 % (3-13); RED BLOOD COUNT 3.05 10^6/uL (4.35-5.55); RED CELL DISTRIBUTION WIDTH 13.9 % (11.5-14.0); SEGMENTED NEUTROPHILS % (AUTO) 64.3 % (42-78); WHITE BLOOD COUNT 8.2 10^3/uL (4.0-10.5)
[2017-01-28] MEDS: SUCRALFATE SUSP 1 GM/10 ML UDCUP PO SCH (21:36)
--- NOTE | 2017-01-28 21:38 | PDOC CONSULTATION ---
Consultation Consult Date: 01/28/17 Consult reason:: GI bleeding History of Present Illness Admission Date/PCP: 01/27/17 05:02 Patient complains of: patient admitted for cirrhosis of liver. hep c. had bout 400 to 500 ml of blood per rectum. History of Present Illness: Bleeding per rectum about 400 to 500ml Past Medical History Cardiac Medical History: Reports: Hypertension Denies: Coronary Artery Disease, Myocardial Infarction Pulmonary Medical History: Reports: Asthma - as a child Denies: Bronchitis, Chronic Obstructive Pulmonary Disease (COPD), Pneumonia Neurological Medical History: Denies: Seizures Endocrine Medical History: Reports: None Renal/ Medical History: Reports: None Malignancy Medical History: Reports: None GI Medical History: Reports: None, Cirrhosis, Hepatitis - HEP. C Musculoskeltal Medical History: Reports: Arthritis Psychiatric Medical History: Reports: None, Depression Hematology: Denies: Anemia Past Surgical History Past Surgical History: Reports: Cholecystectomy, Orthopedic Surgery - back yesterday 01/25/2017, Other - L-4 VERTEBROPLASTY 01/25 Denies: Pacemaker Social History Lives with: Other - His landlord Smoking Status: Never Smoker Frequency of Alcohol Use: None Hx Recreational Drug Use: Yes Drugs: Methadone Hx Prescription Drug Abuse: Yes - Advance Directive Resuscitation Status: Full Code Family History Family History: Reviewed & Not Pertinent Medication/Allergy Home Medications: Sertraline HCl [Zoloft 50 Mg Tablet] 50 mg PO DAILY 08/12/12 Oxycodone HCl/Acetaminophen [Percocet 5-325 mg Tablet] 1 tab PO Q4H 09/11/12 Furosemide [Furosemide] 20 mg PO DAILY 01/27/17 Nadolol [Nadolol] 40 mg PO DAILY 01/27/17 Pramipexole Di-HCl [Pramipexole Dihydrochloride] 0.25 mg PO DAILY 01/27/17 Spironolactone [Spironolactone] 50 mg PO DAILY 01/27/17 Tamsulosin HCl [Tamsulosin HCl] 0.4 mg PO DAILY 01/27/17 Tizanidine HCl [Tizanidine HCl] 4 mg PO TID 01/27/17 Allergies/Adverse Reactions: No Known Allergies Allergy (Verified 01/26/17 20:24) Physical Exam Vital Signs: Temp Pulse Resp BP Pulse Ox 97.8 F 66 12 94/50 L 94 01/28/17 20:00 01/28/17 20:00 01/28/17 20:00 01/28/17 20:00 01/28/17 20:00 Intake & Output 01/27/17 01/28/17 01/29/17 06:59 06:59 06:59 Intake Total 3741 1899 Output Total 875 2775 325 Balance -392 340 1283 Weight 97 kg Results Laboratory Results: 01/28/17 20:00 01/28/17 04:09 01/28/17 01/28/17 01/28/17 04:09 04:09 13:20 WBC 6.0 RBC 4.36 Hgb 14.8 Hct 42.7 MCV 98 H MCH 33.9 H MCHC 34.6 RDW 14.2 H Plt Count 55 L Seg Neutrophils % Lymphocytes % Monocytes % Eosinophils % Basophils % Absolute Neutrophils Absolute Lymphocytes Absolute Monocytes Absolute Eosinophils Absolute Basophils Sodium 143.1 Potassium 3.8 Chloride 105 Carbon Dioxide 28 Anion Gap 10 BUN 27 H Creatinine 0.94 Est GFR ( Amer) > 60 Est GFR (Non-Af Amer) > 60 Glucose 121 H Calcium 9.2 Magnesium 2.4 H Total Bilirubin 2.1 H AST 182 H ALT 48 Alkaline Phosphatase 154 H Total Protein 6.4 Albumin 3.0 L Stool Occult Blood POSITIVE Blood Type Antibody Screen 01/28/17 01/28/17 01/28/17 13:31 13:31 16:42 WBC 9.5 6.9 RBC 3.97 L 3.54 L Hgb 13.4 L 12.0 L Hct 39.1 34.7 L MCV 99 H 98 H MCH 33.9 H 33.8 H MCHC 34.4 34.4 RDW 13.7 14.0 Plt Count 90 L 66 L Seg Neutrophils % 64.3 Lymphocytes % 22.7 Monocytes % 9.2 Eosinophils % 3.0 Basophils % 0.8 Absolute Neutrophils 4.4 Absolute Lymphocytes 1.6 Absolute Monocytes 0.6 Absolute Eosinophils 0.2 Absolute Basophils 0.1 Sodium Potassium Chloride Carbon Dioxide Anion Gap BUN Creatinine Est GFR ( Amer) Est GFR (Non-Af Amer) Glucose Calcium Magnesium Total Bilirubin AST ALT Alkaline Phosphatase Total Protein Albumin Stool Occult Blood Blood Type O NEGATIVE Antibody Screen NEGATIVE 01/28/17 20:00 WBC 8.2 RBC 3.05 L Hgb 10.4 L Hct 29.7 L MCV 97 MCH 34.1 H MCHC 35.1 RDW 13.9 Plt Count 88 L Seg Neutrophils % 64.3 Lymphocytes % 21.7 Monocytes % 9.5 Eosinophils % 3.7 Basophils % 0.8 Absolute Neutrophils 5.2 Absolute Lymphocytes 1.8 Absolute Monocytes 0.8 Absolute Eosinophils 0.3 Absolute Basophils 0.1 Sodium Potassium Chloride Carbon Dioxide Anion Gap BUN Creatinine Est GFR ( Amer) Est GFR (Non-Af Amer) Glucose Calcium Magnesium Total Bilirubin AST ALT Alkaline Phosphatase Total Protein Albumin Stool Occult Blood Blood Type Antibody Screen 01/27/17 01/27/17 01/27/17 06:18 06:18 11:15 Creatine Kinase 1564 H 1423 H CK-MB (CK-2) 11.50 H Troponin I < 0.012 01/28/17 04:09 Creatine Kinase 2373 H CK-MB (CK-2) Troponin I Impressions: Lumbar Spine X-Ray 01/26/17 20:19 IMPRESSION: SPONDYLOSIS WITHOUT BONE LESION OR FRACTURE. Head CT 01/27/17 00:14 IMPRESSION: No acute findings. Chest X-Ray 01/27/17 00:16 IMPRESSION: Pulmonary vascular congestion. Assessment & Plan - Plan Summary Plan Summary: No surgical intervention [employer] Recommed GI consult AM for Upper endoscopy and colonoscopy
[2017-01-29] MEDS: OXYCODONE HCL IR 5 MG TABLET PO PRN ×3 (00:06→14:11)
[2017-01-29 00:42] LABS: HEMATOCRIT 27.9 % (37.9-51.0); HEMOGLOBIN 9.9 g/dL (13.5-17.0); HGB HCT DIFFERENCE 1.8; MEAN CORPUSCULAR HEMOGLOBIN 34.9 pg (27.0-33.4); MEAN CORPUSCULAR HGB CONC 35.5 g/dL (32.0-36.0); MEAN CORPUSCULAR VOLUME 98 fl (80-97); RED BLOOD COUNT 2.84 10^6/uL (4.35-5.55); RED CELL DISTRIBUTION WIDTH 13.9 % (11.5-14.0); WHITE BLOOD COUNT 8.6 10^3/uL (4.0-10.5)
[2017-01-29 00:47] LABS: PROTHROMBIN TIME 20.1 SEC (11.4-15.4)
[2017-01-29 04:19] LABS: CALCIUM 8.4 mg/dL (8.4-10.2); CREATININE RESULT 0.85 mg/dL (0.52-1.25); GLUCOSE 105 mg/dL (75-110); MAGNESIUM 2.2 mg/dL (1.6-2.3)
[2017-01-29 04:36] LABS: ANION GAP 6 (5-19); CARBON DIOXIDE 26 mmol/L (22-30); CHLORIDE 107 mmol/L (98-107); SODIUM 138.9 mmol/L (137-145)
[2017-01-29 04:37] LABS: BLOOD UREA NITROGEN 60 mg/dL (7-20); POTASSIUM 4.9 mmol/L (3.6-5.0)
[2017-01-29 06:47] LABS: HEMATOCRIT 26.3 % (37.9-51.0); HEMOGLOBIN 9.2 g/dL (13.5-17.0); HGB HCT DIFFERENCE 1.3; MEAN CORPUSCULAR HEMOGLOBIN 34.2 pg (27.0-33.4); MEAN CORPUSCULAR VOLUME 98 fl (80-97); RED CELL DISTRIBUTION WIDTH 14.2 % (11.5-14.0); WHITE BLOOD COUNT 8.8 10^3/uL (4.0-10.5)
[2017-01-29 08:52] LABS: HEMATOCRIT 28.2 % (37.9-51.0); HEMOGLOBIN 9.7 g/dL (13.5-17.0); HGB HCT DIFFERENCE 0.9; MEAN CORPUSCULAR HGB CONC 34.2 g/dL (32.0-36.0); MEAN CORPUSCULAR VOLUME 99 fl (80-97); RED BLOOD COUNT 2.84 10^6/uL (4.35-5.55); RED CELL DISTRIBUTION WIDTH 14.1 % (11.5-14.0); WHITE BLOOD COUNT 10.4 10^3/uL (4.0-10.5)
[2017-01-29 08:55] LABS: PROTHROMBIN TIME 18.2 SEC (11.4-15.4)
[2017-01-29] MEDS ORDERED: PEG 3350/NA SULF,BICARB,CL/KCL 4000 ML PO ONE (10:00)
[2017-01-29] MEDS ORDERED: LIDOCAINE 5% (700 MG) TRANSDERMAL ADH..PATCH TP SCH (10:00)
[2017-01-29] MEDS: MULTIVITAMIN TABLET PO SCH (10:02)
[2017-01-29] MEDS: FOLIC ACID 1 MG TABLET PO SCH (10:02)
[2017-01-29] MEDS: SERTRALINE HCL 50 MG TABLET PO SCH (10:02)
[2017-01-29] MEDS: THIAMINE HCL 100 MG TABLET PO SCH (10:03)
[2017-01-29] MEDS: TAMSULOSIN HCL 0.4 MG CAP.SR.24H PO SCH (10:03)
[2017-01-29] MEDS: SUCRALFATE SUSP 1 GM/10 ML UDCUP PO SCH ×2 (10:04→14:07)
[2017-01-29] MEDS: NORMAL SALINE 1000 ML 1,000 ML IV PRN (10:05)
[2017-01-29] MEDS: NADOLOL 40 MG TABLET PO SCH (10:05)
[2017-01-29] MEDS: DOCUSATE SODIUM 100 MG CAPSULE PO SCH (10:05)
[2017-01-29] MEDS ORDERED: NORMAL SALINE 1000 ML 1,000 ML IV PRN (10:34)
--- NOTE | 2017-01-29 10:49 | PDOC PROGRESS REPORT ---
Subjective Progress Note for:: 01/29/17 Subjective:: The patient was seen earlier today on rounds. The patient is sleepy this morning. The patient states that his pain has been reasonably well controlled. At the present time he is happy with his pain control. Apparently yesterday afternoon the patient also had some episodes of vomiting. No hematemesis or coffee-ground emesis. The patient did have yet another episode of rectal bleeding. The case has been discussed with Dr. Kulkarni of surgery who is graciously following this patient. The patient denies any shortness of breath, dizziness, chest pain, heart palpitations, fevers, or chills. The patient has remained afebrile. Blood pressures have been in a good range. When prompted the patient voices no other concerns at this time. Review of systems: The rest of the review of systems is negative. Brief history: The patient underwent kyphoplasty with Dr. Estrada at [facility] approximately 5-6 days ago. The patient was discharged with oxycodone for pain. The patient was brought to [place] after he sustained 2 separate falls at home. The patient was discharged from [facility] to his 90 -year-old mother's home. At this point the patient's oxycodone's cannot be accounted for although they were fill. Prior to that the patient had received Percocet as well. The patient's tox screen on presentation was positive for opiates as well as benzodiazepines. The patient has underlying cirrhosis secondary to hep C which was supposed to be treated. The patient has a remote history of heavy and IV drug use. Has been in a methadone program but is currently not in a methadone treatment program. The patient was admitted for rhabdomyolysis and most likely hepatic and toxic encephalopathy. The patient's benzodiazepines as well as opiates were held and the patient was treated with lactulose and has had significant improvement in his mental state. The patient's course has been complicated due to the rhabdomyolysis as well as his cirrhosis. The patient has the tendency to hold on to fluid however he needs fluids. The patient's CK did trend down with albumin and conservative fluid management. On the evening of 01/28/2017 the patient developed bright red bleeding per rectum and had an acute drop in hemoglobin. The patient has been seen and evaluated by Dr. Kulkarni who is graciously agreed to proceed with endoscopic evaluation. At the time of this dictation the patient is not actively bleeding. 01/27/17 01/27/17 01/28/17 01:40 02:40 04:09 Hgb 16.5 Plt Count 91 L INR BUN Total Bilirubin 2.1 H Creatine Kinase Stool Occult Blood Urine Opiates Screen UNCONFIRMED POSITIVE U Benzodiazepines Scrn UNCONFIRMED POSITIVE 01/28/17 01/28/17 01/29/17 13:20 21:32 03:54 Hgb Plt Count INR BUN 60 H D Total Bilirubin Creatine Kinase 1182 H Stool Occult Blood POSITIVE Urine Opiates Screen U Benzodiazepines Scrn 01/29/17 01/29/17 01/29/17 06:38 08:32 08:32 Hgb 9.2 L 9.7 L Plt Count 113 L INR 1.45 BUN Total Bilirubin Creatine Kinase Stool Occult Blood Urine Opiates Screen U Benzodiazepines Scrn Physical Exam Vital Signs: Temp Pulse Resp BP Pulse Ox 98.7 F 80 20 91/48 L 99 01/29/17 07:45 01/29/17 07:45 01/29/17 07:45 01/29/17 07:45 01/29/17 07:45 Intake & Output 01/27/17 01/28/17 01/29/17 23:59 23:59 23:59 Intake Total 2061 3579 1716 Output Total 3375 600 450 Balance -1314 2979 1266 Weight 97 kg 97.5 kg General appearance: PRESENT: no acute distress, well-developed, well-nourished Head exam: PRESENT: atraumatic, normocephalic Eye exam: PRESENT: conjunctiva pale, EOMI, nystagmus, PERRLA, scleral icterus Ear exam: PRESENT: normal external ear exam Mouth exam: PRESENT: moist, tongue midline Neck exam: ABSENT: carotid bruit, JVD, lymphadenopathy, thyromegaly Respiratory exam: PRESENT: crackles - Bilateral basal crackles, symmetrical, unlabored. ABSENT: rales, rhonchi, tachypnea, wheezes Cardiovascular exam: PRESENT: RRR. ABSENT: diastolic murmur, rubs, systolic murmur Pulses: PRESENT: normal dorsalis pedis pul Vascular exam: PRESENT: normal capillary refill GI/Abdominal exam: PRESENT: ascites, firm, normal bowel sounds, soft. ABSENT: distended, guarding, mass, rebound, tenderness Rectal exam: PRESENT: deferred Extremities exam: PRESENT: full ROM. ABSENT: calf tenderness, clubbing, pedal edema Neurological exam: PRESENT: alert, awake, oriented to person, oriented to place. ABSENT: motor sensory deficit Psychiatric exam: PRESENT: unusual affect. ABSENT: homicidal ideation, suicidal ideation Skin exam: PRESENT: dry, intact, jaundice, warm. ABSENT: cyanosis, rash Results Laboratory Results: 01/29/17 08:32 01/29/17 03:54 01/28/17 01/28/17 01/28/17 13:20 13:31 13:31 WBC 9.5 RBC 3.97 L Hgb 13.4 L Hct 39.1 MCV 99 H MCH 33.9 H MCHC 34.4 RDW 13.7 Plt Count 90 L Seg Neutrophils % Lymphocytes % Monocytes % Eosinophils % Basophils % Absolute Neutrophils Absolute Lymphocytes Absolute Monocytes Absolute Eosinophils Absolute Basophils Sodium Potassium Chloride Carbon Dioxide Anion Gap BUN Creatinine Est GFR ( Amer) Est GFR (Non-Af Amer) Glucose Calcium Magnesium Stool Occult Blood POSITIVE Blood Type O NEGATIVE Antibody Screen NEGATIVE 01/28/17 01/28/17 01/29/17 16:42 20:00 00:20 WBC 6.9 8.2 8.6 RBC 3.54 L 3.05 L 2.84 L Hgb 12.0 L 10.4 L 9.9 L Hct 34.7 L 29.7 L 27.9 L MCV 98 H 97 98 H MCH 33.8 H 34.1 H 34.9 H MCHC 34.4 35.1 35.5 RDW 14.0 13.9 13.9 Plt Count 66 L 88 L 80 L Seg Neutrophils % 64.3 64.3 Lymphocytes % 22.7 21.7 Monocytes % 9.2 9.5 Eosinophils % 3.0 3.7 Basophils % 0.8 0.8 Absolute Neutrophils 4.4 5.2 Absolute Lymphocytes 1.6 1.8 Absolute Monocytes 0.6 0.8 Absolute Eosinophils 0.2 0.3 Absolute Basophils 0.1 0.1 Sodium Potassium Chloride Carbon Dioxide Anion Gap BUN Creatinine Est GFR ( Amer) Est GFR (Non-Af Amer) Glucose Calcium Magnesium Stool Occult Blood Blood Type Antibody Screen 01/29/17 01/29/17 01/29/17 03:54 03:54 06:38 WBC Cancelled 8.8 RBC Cancelled 2.70 L Hgb Cancelled 9.2 L Hct Cancelled 26.3 L MCV Cancelled 98 H MCH Cancelled 34.2 H MCHC Cancelled 35.0 RDW Cancelled 14.2 H Plt Count Cancelled 97 L Seg Neutrophils % Lymphocytes % Monocytes % Eosinophils % Basophils % Absolute Neutrophils Absolute Lymphocytes Absolute Monocytes Absolute Eosinophils Absolute Basophils Sodium 138.9 Potassium 4.9 D Chloride 107 Carbon Dioxide 26 Anion Gap 6 BUN 60 H D Creatinine 0.85 Est GFR ( Amer) > 60 Est GFR (Non-Af Amer) > 60 Glucose 105 Calcium 8.4 Magnesium 2.2 Stool Occult Blood Blood Type Antibody Screen 01/29/17 08:32 WBC 10.4 RBC 2.84 L Hgb 9.7 L Hct 28.2 L MCV 99 H MCH 34.0 H MCHC 34.2 RDW 14.1 H Plt Count 113 L Seg Neutrophils % Lymphocytes % Monocytes % Eosinophils % Basophils % Absolute Neutrophils Absolute Lymphocytes Absolute Monocytes Absolute Eosinophils Absolute Basophils Sodium Potassium Chloride Carbon Dioxide Anion Gap BUN Creatinine Est GFR ( Amer) Est GFR (Non-Af Amer) Glucose Calcium Magnesium Stool Occult Blood Blood Type Antibody Screen 01/27/17 01/27/17 01/27/17 06:18 06:18 11:15 Creatine Kinase 1564 H 1423 H CK-MB (CK-2) 11.50 H Troponin I < 0.012 01/28/17 01/28/17 04:09 21:32 Creatine Kinase 2373 H 1182 H CK-MB (CK-2) Troponin I Impressions: Lumbar Spine X-Ray 01/26/17 20:19 IMPRESSION: SPONDYLOSIS WITHOUT BONE LESION OR FRACTURE. Head CT 01/27/17 00:14 IMPRESSION: No acute findings. Chest X-Ray 01/27/17 00:16 IMPRESSION: Pulmonary vascular congestion. Assessment & Plan - Diagnosis (1) Lower GI bleed Is this a current diagnosis for this admission?: YesPlan: The patient's hemoglobin has continued to trend down. The patient is being followed by Dr. Kulkarni with surgery. Will continue to monitor and follow. Patient's BUN has become elevated suggestive of acute GI bleed. At this time the patient is not hyperkalemic. 01/27/17 01/28/17 01/29/17 01:40 13:31 00:20 Hgb 16.5 13.4 L 9.9 L 01/29/17 08:32 Hgb 9.7 L 01/27/17 01/29/17 01:40 08:32 Plt Count 91 L 113 L 01/29/17 03:54 BUN 60 H D (2) Acute encephalopathy Is this a current diagnosis for this admission?: YesPlan: Improved. Most likely multifocal with a component of hepatic encephalopathy as well as toxic encephalopathy secondary to benzodiazepines and opiates. The patient had a marginal ammonia level was treated with lactulose. 01/27/17 01/27/17 01/27/17 01:40 02:40 06:18 MCV 99 H Ammonia 29.2 Urine Opiates Screen UNCONFIRMED POSITIVE U Benzodiazepines Scrn UNCONFIRMED POSITIVE (3) Cirrhosis Qualifiers: Hepatic cirrhosis type: other cirrhosis Qualified Code(s): K74.69 - Other cirrhosis of liver Is this a current diagnosis for this admission?: YesPlan: Secondary to hepatitis C. Patient does appear to have some ascites on examination although not severe. Will continue to monitor if this worsens will arrange paracentesis. Patient responded nicely to albumin. 01/27/17 01/27/17 01/27/17 01:40 06:18 06:18 MCV 99 H Plt Count 91 L INR 1.20 Ammonia 29.2 01/27/17 11:15 Total Bilirubin 3.3 H Direct Bilirubin 1.0 H AST 146 H Alkaline Phosphatase 163 H Albumin 3.3 L Home Meds Table Furosemide 20 mg PO DAILY 01/27/17 Nadolol 40 mg PO DAILY 01/27/17 Spironolactone 50 mg PO DAILY 01/27/17 (4) Hepatitis C Qualifiers: Viral hepatitis chronicity: chronic Hepatic coma status: without hepatic coma Qualified Code(s): B18.2 - Chronic viral hepatitis C Is this a current diagnosis for this admission?: Yes (5) Rhabdomyolysis Qualifiers: Rhabdomyolysis type: traumatic Encounter type: initial encounter Qualified Code(s): T79.6XXA - Traumatic ischemia of muscle, initial encounter Is this a current diagnosis for this admission?: YesPlan: The patient's CK has trended down with conservative fluids and albumin replacement. The patient's creatinine has not bumped. I spent a significant amount of time explaining the management of rhabdomyolysis in the presence of volume overload due to the patient's cirrhosis. (6) Pulmonary vascular congestion Plan: Most likely a combination of underlying cirrhosis as well as volume resuscitation for rhabdo. He was diuresed on 04/29/2017. Will hold home diuretics for now (7) Back pain Qualifiers: Back pain location: low back pain Chronicity: unspecified Back pain laterality: unspecified Sciatica presence: unspecified whether sciatica present Qualified Code(s): M54.5 - Low back pain Is this a current diagnosis for this admission?: YesPlan: The patient's pain seems to be pretty well-controlled with this mild dose of oxycodone but is able to maintain his mental status. (8) Fall Qualifiers: Encounter type: initial encounter Qualified Code(s): W19.XXXA - Unspecified fall, initial encounter Is this a current diagnosis for this admission?: Yes - Time Time Spent with patient: on this visit including assessment, plan, physical examination, specialty collaboration, and patient education is 35 minutes. Time Spent with patient: 35 or more minutes Medications reviewed and adjusted accordingly: Yes Disposition: The patient is a DO NOT RESUSCITATE DO NOT INTUBATE. Pending patient's symptomatology and diagnostic findings will reevaluate as needed.
[2017-01-29] MEDS: ONDANSETRON HCL INJ/PF 4 MG/2 ML SDV IV PRN (14:11)
[2017-01-29] MEDS ORDERED: NALOXONE HCL INJ/PF 0.4 MG/1 ML SDV ONE ×2 (15:19→17:40)
[2017-01-29] MEDS ORDERED: ONDANSETRON HCL INJ/PF 4 MG/2 ML SDV ONE (15:19)
[2017-01-29] MEDS ORDERED: GLYCOPYRROLATE INJ 0.4 MG/2 ML VIAL ONE (15:19)
[2017-01-29] MEDS ORDERED: FLUMAZENIL INJ 0.5 MG/5 ML VIAL IV ONE (15:20)
[2017-01-29] MEDS ORDERED: EPINEPHRINE INJ 1 MG/10 ML DISP.SYRIN ONE (15:20)
[2017-01-29] MEDS ORDERED: FENTANYL CITRATE INJ/PF 100 MCG/2 ML AMPUL ONE (15:20)
[2017-01-29] MEDS ORDERED: GLUCAGON,HUMAN RECOMB 1 MG INJ ONE (15:21)
[2017-01-29] MEDS: MIDAZOLAM 2 MG/2 ML INJ ONE ×2 (15:42→16:12)
[2017-01-29] MEDS ORDERED: NORMAL SALINE 100 ML with PANTOPRAZOLE SODIUM 80 MG IV PRN ×2 (16:00)
[2017-01-29] MEDS ORDERED: NORMAL SALINE 250 ML IV PRN ×2 (16:01)
--- NOTE | 2017-01-29 16:31 | Operative Report ---
Operative Report DATE OF SURGERY: 01/29/17 PREOPERATIVE DIAGNOSIS: 1. Gastrointestinal bleed. 2. Coagulopathy. 3. Cirrhosis POSTOPERATIVE DIAGNOSIS: 1. Grade 3 esophageal varices; not bleeding actively. 2. Upper GI bleed secondary to multiple small gastric arterial oozing points OPERATION: 1. Esophagogastroduodenoscopy. 2. Endoscopic intramucosal epinephrine injection for hemostasis of bleeding sites SURGEON: GENNARO STEVENS ANESTHESIA: Moderate Sedation TISSUE REMOVED OR ALTERED: blood COMPLICATIONS: none ESTIMATED BLOOD LOSS: moderate amount from upper GI bleed INTRAOPERATIVE FINDINGS: See below PROCEDURE: After informed consent the patient was taken from the third floor to [facility] endoscopy suite, fifth for, where appropriate monitoring devices were attached to the patient. The patient was having significant bleeding per rectum after several hard bowel movements. The patient has a history of lower endoscopy August 2016 showing sigmoid diverticulitis is only. The patient has a history of cirrhosis coagulopathy. Plan is to perform upper and subsequent lower endoscopy as tolerated. Surgical timeout surgical plan discussed Oral mouthpiece inserted hypopharynx anesthetized in the dome flexible upper endoscope was advanced to the hypopharynx through the esophagus into the stomach. The scope was also advanced into the duodenum. The patient tolerated the entire procedure very well without any respiratory or cardiac distress. The esophagus was significant for advanced, grade 3 varices from the middle third down through the distal third of the esophagus. There was no active bleeding from the esophagus. There was no evidence of stricture or tumor or polyp. The scope was advanced into the stomach. We immediately encountered bright red blood, as well as clot and old blood. The scope Was advanced through the stomach which was lined with mostly old blood down into the pylorus into the duodenum. Scope was brought back through the pylorus again with no evidence of pathology in the duodenum or the distal stomach. We spent a fair amount of time washing out clot and old blood from the body of the stomach. Eventually we saw 2-3 small bleeding sites that were arterial very edematous but otherwise normal appearing rugal folds. The bleeding sites did not appear to be ulcerated nor polypoid. Again we washed out these areas very well and there were isolated to the proximal stomach one on the cardiac side and one on the lesser curvature. We elected to inject epinephrine full-strength 1 10,000 units. Using the endoscopic injector, under hand control, we injected 3 mL of the epinephrine into the mucosa at 3 sites where there was evidence of recent hemorrhage. At this point we felt that the primary objective abdomen accomplished, the identification of the acute bleeding site as well as control of that side with injection therapy. The stomach was decompressed, the scope brought out through the esophagus and stomach. The patient remained hemodynamically stable. Arrangements will be made to transfer the patient to our level of care given the limited resources and [facility].
[2017-01-29 16:50] LABS: HEMATOCRIT 24.5 % (37.9-51.0); HEMOGLOBIN 8.7 g/dL (13.5-17.0); HGB HCT DIFFERENCE 1.6; MEAN CORPUSCULAR HEMOGLOBIN 34.7 pg (27.0-33.4); MEAN CORPUSCULAR HGB CONC 35.7 g/dL (32.0-36.0); MEAN CORPUSCULAR VOLUME 97 fl (80-97); RED BLOOD COUNT 2.52 10^6/uL (4.35-5.55); RED CELL DISTRIBUTION WIDTH 14.2 % (11.5-14.0); WHITE BLOOD COUNT 10.4 10^3/uL (4.0-10.5)
[2017-01-29] MEDS ORDERED: NORMAL SALINE 500 ML with OCTREOTIDE ACETATE 500 MCG IV PRN ×2 (17:05)
[2017-01-29] MEDS ORDERED: DEXTROSE 5%-WATER 250 ML with VASOPRESSIN 100 UNIT IV PRN ×2 (17:07)
--- NOTE | 2017-01-29 17:07 | PDOC TRANSFER SUMMARY ---
General Admission Date/PCP: 01/27/17 05:02 Rosalinda Paul NP Admission Date: 01/27/17 Transfer Date: 01/29/17 Accepting Facility: [facility] Accepting Physician: MICU tar distributor operator: Dr. Powers - Transfer Diagnosis (1) Upper GI hemorrhage Is this a current diagnosis for this admission?: Yes (2) Lower GI bleed Is this a current diagnosis for this admission?: Yes (3) Cirrhosis Is this a current diagnosis for this admission?: Yes (4) Hepatitis C Is this a current diagnosis for this admission?: Yes (5) Rhabdomyolysis Is this a current diagnosis for this admission?: Yes (7) Acute encephalopathy Is this a current diagnosis for this admission?: Yes (8) Back pain Is this a current diagnosis for this admission?: Yes (9) Fall Is this a current diagnosis for this admission?: Yes - Transfer Medications Home Medications: Sertraline HCl [Zoloft 50 Mg Tablet] 50 mg PO DAILY 08/12/12 Oxycodone HCl/Acetaminophen [Percocet 5-325 mg Tablet] 1 tab PO Q4H 09/11/12 Furosemide [Furosemide] 20 mg PO DAILY 01/27/17 Nadolol [Nadolol] 40 mg PO DAILY 01/27/17 Pramipexole Di-HCl [Pramipexole Dihydrochloride] 0.25 mg PO DAILY 01/27/17 Spironolactone [Spironolactone] 50 mg PO DAILY 01/27/17 Tamsulosin HCl [Tamsulosin HCl] 0.4 mg PO DAILY 01/27/17 Tizanidine HCl [Tizanidine HCl] 4 mg PO TID 01/27/17 Transfer Medications: Current Medications Docusate Sodium (Colace 100 Mg Capsule) 100 mg PO BID [facility] Stop: 02/26/17 09:59 Last Admin: 01/29/17 10:05 Dose: Not Given Folic Acid (Folvite 1 Mg Tablet) 1 mg PO DAILY [facility] Stop: 02/26/17 09:59 Last Admin: 01/29/17 10:02 Dose: 1 mg Sodium Chloride (Nacl 0.9% 1000 Ml Iv Soln) 1,000 mls @ 50 mls/hr IV CONTINUOUS PRN PRN Reason: THIS MED IS NOT "PRN" Stop: 02/26/17 05:00 Last Admin: 01/29/17 10:52 Dose: 1,000 ml Pantoprazole Sodium 80 mg/ (Sodium Chloride) 100 mls @ 10 mls/hr IV CONTINUOUS PRN PRN Reason: THIS MED IS NOT "PRN" Stop: 02/01/17 15:59 Sodium Chloride (Nacl 0.9% 250 Ml Iv Soln) 250 mls @ 30 mls/hr IV .DURING TRANSFUSION PRN PRN Reason: THIS MED IS NOT "PRN" Stop: 01/30/17 16:00 Sodium Chloride (Nacl 0.9% 250 Ml Iv Soln) 250 mls @ 0 mls/hr IV CONTINUOUS PRN ; As Directed PRN Reason: AFTER EACH UNIT Stop: 01/30/17 16:00 Lidocaine (Lidoderm 5% (700 Mg) Transdermal Patch) 2 patch TP DAILY [facility] Stop: 02/28/17 09:59 Last Admin: 01/29/17 10:04 Dose: 2 patch Magnesium Hydroxide (Milk Of Magnesia 30 Ml Udcup) 30 ml PO Q48HP PRN PRN Reason: FOR CONSTIPATION Stop: 02/26/17 05:01 Multivitamins (Tab-A-Raina (Multiple Vitamin) Tablet) 1 tab PO DAILY [facility] Stop: 02/26/17 09:59 Last Admin: 01/29/17 10:02 Dose: 1 tab Nadolol (Corgard 40 Mg Tablet) 40 mg PO DAILY [facility] Stop: 02/27/17 09:59 Last Admin: 01/29/17 10:05 Dose: Not Given Ondansetron HCl (Zofran Inj/Pf 4 Mg/2 Ml Sdv) 4 mg IV Q6HP PRN Stop: 02/27/17 17:36 Last Admin: 01/29/17 14:11 Dose: 4 mg Oxycodone HCl (Oxy-Ir 5 Mg Tablet) 2.5 mg PO Q6HP PRN Stop: 02/04/17 13:06 Last Admin: 01/29/17 14:11 Dose: 2.5 mg Sertraline HCl (Zoloft 50 Mg Tablet) 50 mg PO DAILY [facility] Stop: 02/27/17 09:59 Last Admin: 01/29/17 10:02 Dose: 50 mg Sodium Chloride (Saline Flush 2.5 Ml Monoject Prefil Syrin) 2.5 ml IV Q8 [facility] Stop: 02/26/17 05:59 Last Admin: 01/29/17 14:07 Dose: Not Given Sucralfate (Carafate Susp 1 Gm/10 Ml Udcup) 1 gm PO ACHS [facility] Stop: 02/27/17 21:59 Last Admin: 01/29/17 14:07 Dose: Not Given Tamsulosin HCl (Flomax 0.4 Mg Cap.Sr) 0.4 mg PO DAILY [facility] Stop: 02/27/17 09:59 Last Admin: 01/29/17 10:03 Dose: 0.4 mg Thiamine HCl (Thiamine 100 Mg Tablet) 100 mg PO DAILY [facility] Stop: 02/26/17 05:59 Last Admin: 01/29/17 10:03 Dose: 100 mg 01/27/17 05:02 Magnesium Hydroxide [Milk of Magnesia 30 ml Udcup] 30 ml PO Q48HP PRN 01/27/17 06:00 Thiamine HCl [Thiamine 100 mg Tablet] 100 mg PO DAILY 01/27/17 10:00 Docusate Sodium [Colace 100 mg Capsule] 100 mg PO BID Folic Acid [Folvite 1 mg Tablet] 1 mg PO DAILY Multivitamin [Tab-A-Raina (Multiple Vitamin) Tablet] 1 tab PO DAILY 01/28/17 10:00 Nadolol [Corgard 40 mg Tablet] 40 mg PO DAILY Sertraline HCl [Zoloft 50 mg Tablet] 50 mg PO DAILY Tamsulosin HCl [Flomax 0.4 mg Cap.sr] 0.4 mg PO DAILY 01/28/17 13:07 Oxycodone HCl [Oxy-Ir 5 mg Tablet] 2.5 mg PO Q6HP PRN 01/28/17 17:37 Ondansetron HCl/Pf [Zofran Inj/Pf 4 mg/2 ml Sdv] 4 mg IV Q6HP PRN 01/28/17 22:00 Sucralfate [Carafate Susp 1 gm/10 ml Udcup] 1 gm PO ACHS 01/29/17 10:00 Lidocaine [Lidoderm 5% (700 mg) Transdermal Patch] 2 patch TP DAILY 01/29/17 16:00 Pantoprazole Sodium [Protonix IV Inj 40 mg Vial] 80 mg Normal Saline [NaCl 0.9 % 100 ml IV Soln] 100 ml IV CONTINUOUS 01/29/17 17:05 Octreotide Acetate [Sandostatin Inj 200 Mcg/1 ml 5 ml (Pha)] 500 mcg Normal Saline [NaCl 0.9% 500 ml IV Soln] 500 ml IV CONTINUOUS 01/29/17 17:07 Vasopressin [Vasopressin Inj 20 Unit/1 ml Vial] 100 unit Dextrose 5%-Water [ D5w 250 ml IV Soln] 250 ml IV CONTINUOUS 01/29/17 18:00 Ceftriaxone 1 gm/D5w RTU [Rocephin RTU 1 gm/D5w 50 ml Premix] 1 gm in 50 ml IV QPM Octreotide Acetate [Sandostatin Inj/Pf 100 Mcg/1 ml Sdv] 50 mcg IV NOW ONE - Allergies Allergies/Adverse Reactions: No Known Allergies Allergy (Verified 01/26/17 20:24) - Diet/Activity Discharge Activity: Bedrest Hospital Course Hospital Course: RADHA YEBOAH JR is a 71 year old male with past medical history remarkable for reported hypertension, childhood asthma, arthritis, and hepatitis C, status post vertebroplasty on the fourth of this month for an L4 compression fracture, who presents to the emergency room for evaluation of falling 2. At the time of admission the patient was globally disoriented and able to provide no history whatsoever in terms of acute or chronic events, review of systems, personal habits, family history, etc. No friends or family are present. No old inpatient records available for review. When asked what year it was, "[birth year];" when asked where he was, "[address] When asked if anything had happened earlier in the day, he stated "nothing eventful." When I asked him if he had fallen, he then stated "yes." Denied loss of consciousness or head trauma. States his legs "just gave out." Also denied nausea vomiting, fever chills, diarrhea or dysuria. Denied headache chest or abdominal pain. There have been no reported episodes of vomiting, diarrhea, melena, hematochezia, or coffee ground emesis. The patient was admitted to continuous telemetry unit. The patient's symptoms were consistent significant confusion. This during the patient's stay improved rapidly with holding the patient's benzodiazepines as well as opiates. The patient did have a marginal ammonia level and was treated with lactulose with improvement in his mental state. The patient had been given prescription for both Percocet and oxycodone recently and oxycodone could not be accounted for during the patient's stay. The patient's sister took the patient's Percocet and flushed it in the toilet stating that her brother would take everyone of them if he possibly could. The patient's course was complicated by rhabdomyolysis given the patient's falls at home. On presentation the patient's CK was found to be 1246 which trended up to 2373 but is now trended down to 1182. Hydration for this has been quite difficult given that the patient does have volume overload due to cirrhosis. However the patient responded very well to albumin infusion. Fortunately the patient never had an elevation in his creatinine. The patient serial hemoglobins revealed a 7 point drop during the admission. Although some of this could be attributed to hemodilution from hydration of rhabdo the patient has had significant blood loss. The patient was not on any anticoagulation therapy. The patient was started on PPI therapy, Prevacid admission. The patient was seen and evaluated by surgicalist and underwent an EGD. Findings were consistent with a large volume of blood in the gastrum. The surgicalist did not feel that this was consistent with a variceal bleed although the patient was noted to have grade 3 esophageal varices. The patient was injected with epi. The exact source of bleeding was undetermined. It was felt by the surgicalist that the patient would be best suited for gastroenterologic service given the unclear clinical picture. GI services are unavailable this facility at this time. After the patient's EGD became hypotensive. CBC was obtained and 1 unit of packed red blood cells have been ordered at this time. At the time of this dictation the patient is hypotensive and started on vasopressin. The patient is at constant cusp of volume overload given his cirrhosis. The patient has required gentle hydration. After the procedure the patient was found to be quite pale and clinically appears much more ill than earlier on rounding. Discussed the case with GI fellow Dr. Partida, whose recommendations were to cover for spontaneous bacterial peritonitis with ceftriaxone and to also start the patient on octreotide. Both of these a been ordered. I spoke with the tar distributor operator, Dr. Powers, at [facility]. Physical Exam Vital Signs: Temp Pulse Resp BP Pulse Ox 98.6 F 85 14 94/38 L 92 01/29/17 11:46 01/29/17 15:50 01/29/17 15:50 01/29/17 15:50 01/29/17 15:50 Intake & Output 01/27/17 01/28/17 01/29/17 23:59 23:59 23:59 Intake Total 2068 0619 6 Output Total 3376 600 800 Balance -1314 2979 1266 Weight 97 kg 97.5 kg General appearance: PRESENT: disheveled, mild distress Head exam: PRESENT: atraumatic, normocephalic Eye exam: PRESENT: conjunctiva pale, EOMI, PERRLA - Pinpoint pupils, scleral icterus Ear exam: PRESENT: normal external ear exam Mouth exam: PRESENT: moist, tongue midline Neck exam: ABSENT: carotid bruit, JVD, lymphadenopathy, thyromegaly Respiratory exam: PRESENT: crackles - Bilateral basal crackles, symmetrical. ABSENT: rales, rhonchi, tachypnea, unlabored, wheezes Cardiovascular exam: PRESENT: RRR. ABSENT: diastolic murmur, rubs, systolic murmur Pulses: PRESENT: normal dorsalis pedis pul Vascular exam: PRESENT: pallor GI/Abdominal exam: PRESENT: normal bowel sounds, soft. ABSENT: distended, guarding, mass, organolmegaly, rebound, tenderness Rectal exam: PRESENT: deferred Extremities exam: PRESENT: full ROM. ABSENT: calf tenderness, clubbing, pedal edema Neurological exam: PRESENT: alert, awake, oriented to person, oriented to place , oriented to time. ABSENT: motor sensory deficit, aphasic Psychiatric exam: PRESENT: flat affect Skin exam: PRESENT: dry, intact, jaundice, pallor, warm. ABSENT: cyanosis, rash Results Laboratory Results: 01/29/17 08:32 01/29/17 03:54 01/28/17 01/28/17 01/28/17 13:31 16:42 20:00 WBC 6.9 8.2 RBC 3.54 L 3.05 L Hgb 12.0 L 10.4 L Hct 34.7 L 29.7 L MCV 98 H 97 MCH 33.8 H 34.1 H MCHC 34.4 35.1 RDW 14.0 13.9 Plt Count 66 L 88 L Seg Neutrophils % 64.3 64.3 Lymphocytes % 22.7 21.7 Monocytes % 9.2 9.5 Eosinophils % 3.0 3.7 Basophils % 0.8 0.8 Absolute Neutrophils 4.4 5.2 Absolute Lymphocytes 1.6 1.8 Absolute Monocytes 0.6 0.8 Absolute Eosinophils 0.2 0.3 Absolute Basophils 0.1 0.1 Sodium Potassium Chloride Carbon Dioxide Anion Gap BUN Creatinine Est GFR ( Amer) Est GFR (Non-Af Amer) Glucose Calcium Magnesium Blood Type O NEGATIVE Antibody Screen NEGATIVE 01/29/17 01/29/17 01/29/17 00:20 03:54 03:54 WBC 8.6 Cancelled RBC 2.84 L Cancelled Hgb 9.9 L Cancelled Hct 27.9 L Cancelled MCV 98 H Cancelled MCH 34.9 H Cancelled MCHC 35.5 Cancelled RDW 13.9 Cancelled Plt Count 80 L Cancelled Seg Neutrophils % Lymphocytes % Monocytes % Eosinophils % Basophils % Absolute Neutrophils Absolute Lymphocytes Absolute Monocytes Absolute Eosinophils Absolute Basophils Sodium 138.9 Potassium 4.9 D Chloride 107 Carbon Dioxide 26 Anion Gap 6 BUN 60 H D Creatinine 0.85 Est GFR ( Amer) > 60 Est GFR (Non-Af Amer) > 60 Glucose 105 Calcium 8.4 Magnesium 2.2 Blood Type Antibody Screen Labs- Last Values WBC 10.4 10^3/uL (4.0-10.5) 01/29/17 16:40 RBC 2.52 10^6/uL (4.35-5.55) L 01/29/17 16:40 Hgb 8.7 g/dL (13.5-17.0) L 01/29/17 16:40 Hct 24.5 % (37.9-51.0) L 01/29/17 16:40 MCV 97 fl (80-97) 01/29/17 16:40 MCH 34.7 pg (27.0-33.4) H 01/29/17 16:40 MCHC 35.7 g/dL (32.0-36.0) 01/29/17 16:40 RDW 14.2 % (11.5-14.0) H 01/29/17 16:40 Plt Count 110 10^3/uL (150-450) L 01/29/17 16:40 Seg Neutrophils % 64.3 % (42-78) 01/28/17 20:00 Lymphocytes % 21.7 % (13-45) 01/28/17 20:00 Monocytes % 9.5 % (3-13) 01/28/17 20:00 Eosinophils % 3.7 % (0-6) 01/28/17 20:00 Basophils % 0.8 % (0-2) 01/28/17 20:00 Absolute Neutrophils 5.2 10^3/uL (1.7-8.2) 01/28/17 20:00 Absolute Lymphocytes 1.8 10^3/uL (0.5-4.7) 01/28/17 20:00 Absolute Monocytes 0.8 10^3/uL (0.1-1.4) 01/28/17 20:00 Absolute Eosinophils 0.3 10^3/uL (0.0-0.6) 01/28/17 20:00 Absolute Basophils 0.1 10^3/uL (0.0-0.2) 01/28/17 20:00 Platelet Estimate Cancelled 01/29/17 03:54 PT 18.2 SEC (11.4-15.4) H 01/29/17 08:32 INR 1.45 01/29/17 08:32 APTT 36.9 SEC (23.5-35.8) H 01/28/17 16:42 Sodium 138.9 mmol/L (137-145) 01/29/17 03:54 Potassium 4.9 mmol/L (3.6-5.0) D 01/29/17 03:54 Chloride 107 mmol/L (98-107) 01/29/17 03:54 Carbon Dioxide 26 mmol/L (22-30) 01/29/17 03:54 Anion Gap 6 (5-19) 01/29/17 03:54 BUN 60 mg/dL (7-20) H D 01/29/17 03:54 Creatinine 0.85 mg/dL (0.52-1.25) 01/29/17 03:54 Est GFR ( Amer) > 60 (>60) 01/29/17 03:54 Est GFR (Non-Af Amer) > 60 (>60) 01/29/17 03:54 Glucose 105 mg/dL (75-110) 01/29/17 03:54 Calcium 8.4 mg/dL (8.4-10.2) 01/29/17 03:54 Magnesium 2.2 mg/dL (1.6-2.3) 01/29/17 03:54 Total Bilirubin 2.1 mg/dL (0.2-1.3) H 01/28/17 04:09 Direct Bilirubin 0.7 mg/dL (0.0-0.4) H 01/28/17 04:09 Indirect Bilirubin Not Reportable 01/28/17 04:09 Neonat Total Bilirubin Not Reportable 01/28/17 04:09 AST 182 U/L (17-59) H 01/28/17 04:09 ALT 48 U/L (21-72) 01/28/17 04:09 Alkaline Phosphatase 154 U/L (38-126) H 01/28/17 04:09 Ammonia 29.2 umol/L (9-33) 01/27/17 06:18 Creatine Kinase 1182 U/L (55-170) H 01/28/17 21:32 CK-MB (CK-2) 11.50 ng/mL (<4.55) H 01/27/17 06:18 Troponin I < 0.012 ng/mL 01/27/17 06:18 Total Protein 6.4 g/dL (6.3-8.2) 01/28/17 04:09 Albumin 3.0 g/dL (3.5-5.0) L 01/28/17 04:09 TSH 1.36 uIU/mL (0.47-4.68) 01/27/17 01:40 Urine Color YELLOW 01/27/17 02:40 Urine Appearance CLEAR 01/27/17 02:40 Urine pH 6.0 (5.0-9.0) 01/27/17 02:40 Ur Specific Fenton 1.008 01/27/17 02:40 Urine Protein NEGATIVE mg/dL (NEGATIVE) 01/27/17 02:40 Urine Glucose (UA) NEGATIVE mg/dL (NEGATIVE) 01/27/17 02:40 Urine Ketones TRACE mg/dL (NEGATIVE) H 01/27/17 02:40 Urine Blood SMALL (NEGATIVE) H 01/27/17 02:40 Urine Nitrite NEGATIVE (NEGATIVE) 01/27/17 02:40 Urine Bilirubin NEGATIVE (NEGATIVE) 01/27/17 02:40 Urine Urobilinogen NEGATIVE mg/dL (<2.0) 01/27/17 02:40 Ur Leukocyte Esterase NEGATIVE (NEGATIVE) 01/27/17 02:40 Urine WBC (Auto) 0 /HPF 01/27/17 02:40 Urine RBC (Auto) 1 /HPF 01/27/17 02:40 Squamous Epi Cells Auto <1 /HPF 01/27/17 02:40 Urine Ascorbic Acid NEGATIVE (NEGATIVE) 01/27/17 02:40 Stool Occult Blood POSITIVE (NEGATIVE) 01/28/17 13:20 Salicylates < 1.0 mg/dL (2.0-20.0) L 01/27/17 01:40 Urine Opiates Screen UNCONFIRMED POSITIVE 01/27/17 02:40 Urine Methadone Screen NEGATIVE 01/27/17 02:40 Acetaminophen < 10 ug/mL (10-30) L 01/27/17 01:40 Ur Barbiturates Screen NEGATIVE 01/27/17 02:40 Ur Phencyclidine Scrn NEGATIVE 01/27/17 02:40 Ur Amphetamines Screen NEGATIVE 01/27/17 02:40 U Benzodiazepines Scrn UNCONFIRMED POSITIVE 01/27/17 02:40 Urine Cocaine Screen NEGATIVE 01/27/17 02:40 U Marijuana (THC) Screen NEGATIVE 01/27/17 02:40 Serum Alcohol < 10 mg/dL (NONE DETECTED) 01/27/17 01:40 Slides for Path Review Cancelled 01/29/17 03:54 Blood Type O NEGATIVE 01/28/17 13:31 Antibody Screen NEGATIVE 01/28/17 13:31 Crossmatch See Detail 01/28/17 13:31 Impressions: Lumbar Spine X-Ray 01/26/17 20:19 IMPRESSION: SPONDYLOSIS WITHOUT BONE LESION OR FRACTURE. Head CT 01/27/17 00:14 IMPRESSION: No acute findings. Chest X-Ray 01/27/17 00:16 IMPRESSION: Pulmonary vascular congestion. Plan Discharge Plan: The patient be received to the services of the MICU and [facility]. At this time I would like to thank Dr. Kulkarni in the surgicalist for graciously participating in the care of this patient. At this time I would like to thank [facility] for graciously participating in the care of this patient. Time Spent: Greater than 30 Minutes
[2017-01-29] MEDS ORDERED: CEFTRIAXONE 1 GM/D5W RTU 1 GM/50 ML RTUPB IV SCH (18:00)
[2017-01-29] MEDS ORDERED: OCTREOTIDE ACETATE INJ/PF 100 MCG/1 ML SDV IV ONE (18:00)
[2017-01-29 19:25] VITALS: BP 150/75
--- NOTE | 2017-01-29 21:53 | OPERATIVE REPORT E ---
Operative Report NAME: RADHA YEBOAH : 1945 AGE: 71Y DATE OF SURGERY: 01/29/2017 ROOM: 607 PREOPERATIVE DIAGNOSIS: Hemorrhagic shock. POSTOPERATIVE DIAGNOSIS: Hemorrhagic shock. OPERATION: 1. Focused ultrasound of the right groin. 2. Ultrasound-directed insertion of right femoral vein triple-lumen central venous access catheter. SURGEON: GENNARO STEVENS M.D. ANESTHESIA: 1% lidocaine without epinephrine. COMPLICATIONS: None. FINDINGS: See below. ESTIMATED BLOOD LOSS: Scant. DRAINS: None. TISSUE REMOVED OR ALTERED: None. SUMMARY OF PROCEDURE: The patient was placed in the supine position. Emergency consent obtained. Right groin was exposed, hair clipped, and cleaned with a Nagi and Hibiclens scrub brush. The right groin was then prepped and draped in a sterile fashion. Surgical plan, surgical timeout were conducted. Using ultrasound as a guide and Seldinger technique, a triple-lumen central venous access catheter fed into the right vein without difficulty. There was excellent blood flow through all 3 lumens. Catheter was flushed with heparinized saline and secured to the skin with 2-0 silk suture, Biopatch applied. The patient tolerated the procedure well. DICTATING PHYSICIAN: GENNARO STEVENS M.D. [id number] Y#: [id number] ID: [id number] JOB#: [id number] ACCT: [id number] cc:GENNARO STEVENS M.D. >
== END 2017-01-29 19:30 | disposition short-term general hospital (02) | DRG 377 ==
LOC: ER 20:00 → UNDOADMIN 01-27 03:37 → EH 01-27 03:37 → 3N 01-27 06:50 → ICU 01-29 17:20
PROVIDERS: ADMIT Family Medicine; ATTEND Family Medicine
PROC: 3E0G8GC Introduction of Other Therapeutic Substance into Upper GI, Via Natural or Artificial Opening Endoscopic (ICD-10-PCS; 2017-01-29)
PROC: 06HM33Z Insertion of Infusion Device into Right Femoral Vein, Percutaneous Approach (ICD-10-PCS; 2017-01-29)
PROC: B54BZZA Ultrasonography of Right Lower Extremity Veins, Guidance (ICD-10-PCS; 2017-01-29)
PROC: 30233N1 Transfusion of Nonautologous Red Blood Cells into Peripheral Vein, Percutaneous Approach (ICD-10-PCS; 2017-01-29)
PROC: 0DJ08ZZ Inspection of Upper Intestinal Tract, Via Natural or Artificial Opening Endoscopic (ICD-10-PCS; principal; 2017-01-29 13:30)
DX: K92.1 Melena (principal); G92 Toxic encephalopathy; D62 Acute posthemorrhagic anemia; T79.6XXA Traumatic ischemia of muscle, initial encounter; T42.4X5A Adverse effect of benzodiazepines, initial encounter; B18.2 Chronic viral hepatitis C; I85.10 Secondary esophageal varices without bleeding; I10 Essential (primary) hypertension; M19.90 Unspecified osteoarthritis, unspecified site; K74.60 Unspecified cirrhosis of liver; I95.9 Hypotension, unspecified; M54.5 Low back pain; W19.XXXA Unspecified fall, initial encounter; K72.90 Hepatic failure, unspecified without coma; T40.605A Adverse effect of unspecified narcotics, initial encounter; Z66 Do not resuscitate; Z90.49 Acquired absence of other specified parts of digestive tract; Z98.890 Other specified postprocedural states; Z87.891 Personal history of nicotine dependence; Z87.09 Personal history of other diseases of the respiratory system
CPT/HCPCS: 36415; 36430; 43236; 51702; 70450; 71010; 72110; 80048; 80053; 80307; 81001; 82140; 82272; 82550; 82553; 83735; 84443; 84484; 85025; 85027; 85610; 85730; 86850; 86900; 86901; 86920; 93005; 93010; 96372; 96374; 99285; C1751; G8978-GP; G8979-GP; G8980-GP; J0171; J1170; J1610; J1885; J1940; J2060; J2250; J2310; J2354; J2405; J3010; J3490; J7030; J7040; P9016; P9047; S0119

== ENCOUNTER 2018-01-16 04:29 | Inpatient (IN) | payer MEDICARE ==
--- NOTE | 2018-01-16 04:42 | ER Document Report ---
Doctor's Note Notes: 01/16/18 04:40 I performed a quick triage evaluation the patient. Patient is a 72-year-old male who presents because of falls. He says over the last 3 days has been falling frequently and that he has a lot of pain in his low back. His history of previous back fracture and surgery. He said he had surgery on his back approximately a month ago. He was at a long-term or assisted-living facility afterwards and then decided he wants to live on himself approximately 5 days ago. He says since then he has had difficulty getting around the house on his own he says he is unable to really get out of his chair in his own and will fall to the floor and have to wait until someone can come by to come get him or help him up. This for some weeks come to the hospital for this. He says he is come because concerned that he keeps falling. He has no other complaints this time. Has a history of hepatitis C and liver failure. He denies recent fevers or infections. Complains of pain mainly in his back. He denies headache but says he did hit his head yesterday. Scans of his head and low back. He has good strength in both lower extremities. No signs of cauda equina syndrome. There is no other areas of tenderness on exam other than his low back.
[2018-01-16 05:25] LABS: ABSOLUTE EOSINOPHILS # (AUTO) 0.2 10^3/uL (0.0-0.6); ABSOLUTE LYMPHOCYTES (AUTO) 1.5 10^3/uL (0.5-4.7); ABSOLUTE MONOCYTES (AUTO) 0.6 10^3/uL (0.1-1.4); ABSOLUTE NEUT (AUTO) 5.2 10^3/uL (1.7-8.2); BASOPHILS % (AUTO) 0.6 % (0-2); EOSINOPHILS % (AUTO) 2.3 % (0-6); HEMATOCRIT 39.4 % (37.9-51.0); HEMOGLOBIN 13.5 g/dL (13.5-17.0); LYMPHOCYTES % (AUTO) 19.6 % (13-45); MEAN CORPUSCULAR HEMOGLOBIN 31.4 pg (27.0-33.4); MEAN CORPUSCULAR HGB CONC 34.2 g/dL (32.0-36.0); MEAN CORPUSCULAR VOLUME 92 fl (80-97); MONOCYTES % (AUTO) 7.5 % (3-13); RED BLOOD COUNT 4.29 10^6/uL (4.35-5.55); RED CELL DISTRIBUTION WIDTH 19.6 % (11.5-14.0); TOTAL CELLS COUNTED % (AUTO) 100 %; WHITE BLOOD COUNT 7.5 10^3/uL (4.0-10.5)
[2018-01-16 05:41] LABS: ALANINE AMINOTRANSFERASE 57 U/L (21-72); ALBUMIN 2.9 g/dL (3.5-5.0); ALKALINE PHOSPHATASE 115 U/L (38-126); ANION GAP 9 (5-19); ASPARTATE AMINO TRANSFERASE 208 U/L (17-59); BILIRUBIN,DIRECT 0.7 mg/dL (0.0-0.4); BILIRUBIN,TOTAL 2.7 mg/dL (0.2-1.3); BLOOD UREA NITROGEN 32 mg/dL (7-20); CALCIUM 9.2 mg/dL (8.4-10.2); CARBON DIOXIDE 26 mmol/L (22-30); CHLORIDE 111 mmol/L (98-107); GLUCOSE 124 mg/dL (75-110); POTASSIUM 3.7 mmol/L (3.6-5.0); SODIUM 145.9 mmol/L (137-145); TOTAL PROTEIN 6.2 g/dL (6.3-8.2)
[2018-01-16 05:45] LABS: PLATELET COUNT 76 10^3/uL (150-450)
--- NOTE | 2018-01-16 05:48 | RADIOLOGY REPORT (SQ) ---
EXAM DESCRIPTION: CT HEAD WITHOUT CLINICAL HISTORY: 72 years Male, trauma COMPARISON: None. TECHNIQUE: No contrast. This exam was performed according to our departmental dose-optimization program, which includes automated exposure control, adjustment of the mA and/or kV according to patient size and/or use of iterative reconstruction technique. FINDINGS: No hemorrhage or infarct. No mass, mass effect, or midline shift. Atherosclerosis. 1.6 cm left maxillary retention cyst-mucocele. Brain and extra-axial structures appear intact. IMPRESSION: No acute findings.
[2018-01-16 05:51] LABS: CREATINE KINASE 2772 U/L (55-170)
--- NOTE | 2018-01-16 05:58 | RADIOLOGY REPORT (SQ) ---
EXAM DESCRIPTION: CT LUMBAR SPINE WITHOUT CLINICAL HISTORY: 72 years Male, trauma COMPARISON: MRI abdomen, report only, 11/16/2014. Limitation: Arm position TECHNIQUE: No contrast. Coronal and sagittal reformat. This exam was performed according to our departmental dose-optimization program, which includes automated exposure control, adjustment of the mA and/or kV according to patient size and/or use of iterative reconstruction technique. FINDINGS: Moderate lumbar levoconvex convexity, moderate L4 anterior compression deformity with left paracentral vertebroplasty, moderate vacuum disc bulge-protrusion between the L2 and S1 levels mild bilateral L5 foraminal stenosis, minimal posterior L5 vertebral height loss normal lordosis, 0.3 cm degenerative L2 and L4 retrolisthesis. 2.7 cm diameter abdominal aortic aneurysm. Retroperitoneum, soft tissues of the lower back, and sacroiliac joints appear otherwise grossly intact. IMPRESSION: 1. Moderate L4 anterior vertebral compression deformity with vertebroplasty. 2. A 2.7 cm diameter abdominal aortic aneurysm. Follow-up recommended every five years.
[2018-01-16] MEDS ORDERED: FENTANYL CITRATE INJ/PF 100 MCG/2 ML AMPUL IV ONE (06:39)
[2018-01-16] MEDS ORDERED: PRAMIPEXOLE DI-HCL 0.5 MG TABLET PO ONE ×2 (06:39→21:00)
[2018-01-16] MEDS ORDERED: NORMAL SALINE 1000 ML 1,000 ML IV ONE (06:39)
[2018-01-16] MEDS ORDERED: CEFTRIAXONE 1 GM/D5W RTU 1 GM/50 ML RTUPB IV ONE (06:40)
--- NOTE | 2018-01-16 06:46 | ER Document Report ---
ED Fall - General Chief Complaint: Fall Stated Complaint: FALL Time Seen by Provider: 01/16/18 04:36 Mode of Arrival: Stretcher Information source: Patient Notes: History of complain-72 years old male with a chronic lower back pain and restless leg syndrome, had vertebroplasty done, on oxycodone 4 times a day and Mirapex, had a fall last night early last night, he says that his recliner broke and he fell down and could not get up. Early this morning able to call the EMS and EMS brought him to the ED. He lives alone. Denies any head injury neck pain neck stiffness. Denies any injury to the upper limbs or lower limbs. Denies any chest pain. Denies any shortness of breath. Having lower back pain which is chronic. And muscular spasm of the lower extremity. Denies any fever chills or other constitutional symptoms. Intensity of pain is moderate relieved by none Exacerbated by any movement. Intensity is moderate REVIEW OF SYSTEMS: CONSTITUTIONAL : Denies fever, chills, or sweats. Denies recent illness. EENT: Denies eye, ear, throat, or mouth pain or symptoms. Denies nasal or sinus congestion or discharge. Denies throat, tongue, or mouth swelling or difficulty swallowing. CARDIOVASCULAR: Denies chest pain. Denies palpitations or racing or irregular heart beat. Denies ankle edema. RESPIRATORY: Denies cough, cold, or chest congestion. Denies shortness of breath, difficulty breathing, or wheezing. GASTROINTESTINAL: Denies abdominal pain or distention. Denies nausea, vomiting , or diarrhea. Denies blood in vomitus, stools, or per rectum. Denies black, tarry stools. Denies constipation. GENITOURINARY: Denies difficulty urinating, painful urination, burning, frequency, blood in urine, or discharge. MUSCULOSKELETAL: Denies joint pain or swelling. SKIN: Denies rash, lesions or sores. HEMATOLOGIC : Denies easy bruising or bleeding. LYMPHATIC: Denies swollen, enlarged glands. NEUROLOGICAL: Denies confusion or altered mental status. Denies passing out or loss of consciousness. Denies dizziness or lightheadedness. Denies headache. Denies weakness or paralysis or loss of use of either side. Denies problems with gait or speech. Denies sensory loss, numbness, or tingling. Denies seizures. PSYCHIATRIC: Denies anxiety or stress. Denies depression, suicidal ideation, or homicidal ideation. ALL OTHER SYSTEMS REVIEWED AND NEGATIVE. Dictation was performed using Float: [place] voice recognition software PHYSICAL EXAMINATION: GENERAL: Seems to be in moderate discomfort HEAD: Atraumatic, normocephalic. EYES: Pupils equal round and reactive to light, extraocular movements intact, sclera anicteric, conjunctiva are normal. ENT: Nares patent, oropharynx clear without exudates. Moist mucous membranes. NECK: Normal range of motion, supple without lymphadenopathy LUNGS: Breath sounds clear to auscultation bilaterally and equal. No wheezes rales or rhonchi. HEART: Regular rate and rhythm without murmurs ABDOMEN: Soft, nontender, nondistended abdomen. No guarding, no rebound. No masses appreciated. Musculoskeletal: Paraspinal muscular tenderness noted, is unable to sit up due to lower back pain. Both lower extremities have no obvious traumas except minor abrasion over the left knee. Left lower leg has stasis dermatosis with erythema as well as warm and tender to touch. Right lower extremity has stasis dermatosis. NEUROLOGICAL: Cranial nerves grossly intact. Normal speech, normal gait. Normal sensory, motor exams PSYCH: Normal mood, normal affect. SKIN: Warm, Dry, normal turgor, no rashes or lesions noted. History of complain TRAVEL OUTSIDE OF THE [place] IN LAST 30 DAYS: No - HPI Occurred: This afternoon Where: Home Context: Tripped, Lost balance Associated symptoms: Difficulty walking Location of injury/pain: No: Abdomen, Ankle, Back, Breast, Buttocks, Chest, Elbow, Epigastric, Face, Finger, Flank, Foot, Hand, Head, Hip, Mouth, Knee, Neck , Pelvic, Penis, Perineum, Rectum, Shoulder, Testicle, Thigh, Throat, Trunk, Vagina, Wrist, Upper extremity, Lower extremity, Other Quality of pain: Sharp Severity: Moderate Pain Level: 4 Prehospital interventions: No: C-collar, Backboard, NUBIA, IV, IO, BVM, Cecil airway, Nasal airway, Oral airway, Intubation, Needle decompression, Splints, Wound care, Analgesia, Cardiac medications, CPR, Defibrillation, Other - Related data Allergies/Adverse Reactions: No Known Allergies Allergy (Verified 01/26/17 20:24) Past Medical History - Social History Smoking Status: Former Smoker Chew tobacco use (# tins/day): No Drug Abuse: None Family History: Reviewed & Not Pertinent Patient has suicidal ideation: No Patient has homicidal ideation: No - Past Medical History Cardiac Medical History: Reports: Hx Hypertension Denies: Hx Coronary Artery Disease, Hx Heart Attack Pulmonary Medical History: Reports: Hx Asthma - as a child Denies: Hx Bronchitis, Hx COPD, Hx Pneumonia Neurological Medical History: Denies: Hx Cerebrovascular Accident, Hx Seizures Renal/ Medical History: Denies: Hx Peritoneal Dialysis GI Medical History: Reports: Hx Cirrhosis, Hx Hepatitis - HEP. C Musculoskeltal Medical History: Reports Hx Arthritis Psychiatric Medical History: Reports: Hx Depression Infectious Medical History: Reports: Hx Hepatitis - HEP. C Past Surgical History: Reports: Hx Cholecystectomy, Hx Orthopedic Surgery - L-4 VERTEBROPLASTY 01/25/17, Other - L-4 VERTEBROPLASTY 01/25. Denies: Hx Pacemaker - Immunizations Hx Diphtheria, Pertussis, Tetanus Vaccination: Yes Review of Systems - Review of Systems Constitutional: denies: No symptoms reported, See HPI, Chills, Diaphoresis, Fever, Malaise, Weakness, Other, Weight gain, Weight loss, Recent illness EENT: denies: No symptoms reported, See HPI, Eye pain, Eye discharge, Blurred vision, Tearing, Double vision, Ear pain, Ear discharge, Nose pain, Nose congestion, Nose discharge, Sinus pressure, Sinus discharge, Throat pain, Difficulty swallowing, Throat swelling, Mouth pain, Mouth swelling, Dental problem, Vertigo, Other Cardiovascular: denies: No symptoms reported, See HPI, Chest pain, Palpitations , Heart racing, Orthopnea, Dyspnea, Syncope, Dizziness, Lightheaded, Edema, Other, Paroxysmal Nocturnal Dysp Respiratory: denies: No symptoms reported, See HPI, Cough, Hurts to breathe, Hemoptysis, Short of breath, Sputum, Stridor, Wheezing, Other Gastrointestinal: denies: No symptoms reported, See HPI, Abdomen distended, Abdominal pain, Diarrhea, Nausea, Vomiting, Constipation, Blood streaked bowels , Poor appetite, Poor fluid intake, Blood in vomit, Black stools, Rectal bleeding, Last bowel movement, Fecal incontinence, Other Genitourinary: denies: No symptoms reported, See HPI, Burning, Dysuria, Discharge, Frequency, Flank pain, Hematuria, Incontinence, Pain, Urgency, Retention, Other Male Genitourinary: denies: No symptoms reported, See HPI, Erectile dysfunction , Testicular pain, Penile discharge, Other Musculoskeletal: See HPI Skin: See HPI Neurological/Psychological: denies: No symptoms reported, See HPI, Confusion, Dementia, Depression, Hallucinations, Anxiety, Homicidal ideation, Sensory change, Weakness, Gait changes, Loss of power, Paralysis, Seizure, Lost consciousness, Headaches, Speech impairment, Numbness, Suicidal ideation, Tingling, Tremor, Other Physical Exam - Vital signs Vitals: Temp Pulse Resp BP Pulse Ox 98.6 F 74 16 100/52 L 99 01/16/18 04:46 01/16/18 04:46 01/16/18 04:46 01/16/18 04:46 01/16/18 04:46 Course - Vital Signs Vital signs: Temp Pulse Resp BP Pulse Ox 98.6 F 74 16 100/52 L 99 01/16/18 04:46 01/16/18 04:46 01/16/18 04:46 01/16/18 04:46 01/16/18 04:46 - Laboratory Result Diagrams: 01/16/18 05:00 01/16/18 05:00 Laboratory results interpreted by me: 01/16/18 01/16/18 05:00 05:00 RBC 4.29 L RDW 19.6 H Plt Count 76 L Sodium 145.9 H Chloride 111 H BUN 32 H Glucose 124 H Total Bilirubin 2.7 H Direct Bilirubin 0.7 H AST 208 H Creatine Kinase 2772 H Total Protein 6.2 L Albumin 2.9 L - Diagnostic Test Radiology results interpreted by me: 01/16/18 08:35 CT of the head reported by radiologist as unremarkable, lumbar spine no acute fractures. - EKG Interpretation by Me EKG shows normal: Sinus rhythm Rate: Normal - Sinus rhythm at the rate of 71 bpm normal axis no acute ST elevation ST depression T-wave inversion noted. Rhythm: NSR Discharge - Discharge Clinical Impression: Dehydration, Unable to ambulate Fall Qualifiers: Encounter type: initial encounter Qualified Code(s): W19.XXXA - Unspecified fall, initial encounter Rhabdomyolysis Qualifiers: Rhabdomyolysis type: non-traumatic Qualified Code(s): M62.82 - Rhabdomyolysis Condition: Fair Disposition: ADMITTED INPATIENT Admitting Provider: Hospitalist Unit Admitted: Telemetry Referrals: SONIA MCCARTHY FNP [Primary Care Provider] - Follow up as needed
[2018-01-16] MEDS: NORMAL SALINE 1000 ML 1,000 ML IV PRN ×2 (07:10→08:51)
[2018-01-16] MEDS ORDERED: CEFTRIAXONE SODIUM 1,000 MG in DEXTROSE 5%-WATER 50 ML IV ONE (08:00)
[2018-01-16] MEDS ORDERED: ACETAMINOPHEN 325 MG TABLET PO PRN (09:40)
[2018-01-16] MEDS ORDERED: IPRATROPIUM/ALBUTEROL 0.5-2.5 MG/3 ML AMPUL NEB PRN (09:40)
[2018-01-16] MEDS ORDERED: NORMAL SALINE 1000 ML 1,000 ML IV PRN ×2 (09:40→14:25)
[2018-01-16 10:40] LABS: APPEARANCE,URINE CLOUDY; BILIRUBIN,URINE NEGATIVE (NEGATIVE); GLUCOSE, URINE NEGATIVE (NEGATIVE); KETONES,URINE TRACE mg/dL (NEGATIVE); LEUKOCYTE ESTERASE,URINE LARGE (NEGATIVE); NITRITE,URINE NEGATIVE (NEGATIVE); PROTEIN,URINE 30 mg/dL (NEGATIVE); URINE SPECIFIC GRAVITY 1.029
[2018-01-16 10:41] LABS: COLOR,URINE YELLOW
[2018-01-16] MEDS ORDERED: (PENDING PHARMACY ID) (Oxycodone Hcl/Acetaminophen [Percocet 10-325 Mg Tablet] 1 TAB) PO PRN (11:08)
[2018-01-16 12:50] LABS: INTERNATIONAL RATION (INR) 1.58; PROTHROMBIN TIME 19.6 SEC (11.4-15.4)
[2018-01-16 12:51] LABS: PARTIAL THROMBOPLASTIN TIME 43.1 SEC (23.5-35.8)
--- NOTE | 2018-01-16 12:55 | EKG REPORT ---
SEVERITY:- BORDERLINE ECG - SINUS RHYTHM BORDERLINE T ABNORMALITIES, INFERIOR LEADS BORDERLINE PROLONGED QT INTERVAL : Confirmed by: Lyle Faye MD 16-Jan-2018 12:54:43
[2018-01-16 13:02] LABS: ANION GAP 9 (5-19); BLOOD UREA NITROGEN 31 mg/dL (7-20); CALCIUM 8.8 mg/dL (8.4-10.2); CARBON DIOXIDE 27 mmol/L (22-30); CHLORIDE 112 mmol/L (98-107); CREATINE KINASE 1511 U/L (55-170); GLUCOSE 132 mg/dL (75-110); POTASSIUM 3.4 mmol/L (3.6-5.0)
[2018-01-16] MEDS: OXYCODONE-ACETAMINOPHEN 5-325 MG TABLET PO PRN ×2 (14:18→22:37)
[2018-01-16] MEDS: OXYCODONE HCL IR 5 MG TABLET PO PRN ×2 (15:56→22:38)
[2018-01-16] MEDS: HEPARIN SOD (PORCINE) 5,000 UNIT/ML 1 ML SYRINGE SUBCUT SCH ×2 (16:01→22:37)
--- NOTE | 2018-01-16 16:57 | PDOC H&P ---
History of Present Illness Admission Date/PCP: 01/16/18 08:53 ARON FERGUSON Patient complains of: Frequent falls, back pain History of Present Illness: RADHA YEBOAH JR is a 72 year old male with a past medical history of hypertension, end stage liver disease, recent variceal rupture (approximately 1 month ago), hepatitis C s/p treatment, and chronic back pain who presented to the emergency department today for frequent falls. The patient reports that he fell 2 nights ago due to generalized weakness but was able to get himself up off the floor. He states that he fell again last night when his recliner collapsed from beneath him and he was unable to get up on his own; spending the night on the floor. He denies hitting his head, loss of consciousness, dizziness, chest pain, palpitations, dyspnea or orthopnea leading up to his fall or currently. His only complaint at present is his chronic lower back pain which has been aggravated from his falls. Evaluation in the emergency department reveals dehydration with a BUN of 32, sodium 145.p and rhabdomyolysis with an elevated creatinine kinase of 2772. He is also found to have a urinary tract infection by urinalysis. He is referred to the hospital service for admission and management. Past Medical History Cardiac Medical History: Reports: Hypertension Denies: Coronary Artery Disease, Myocardial Infarction Pulmonary Medical History: Reports: Asthma - as a child Denies: Bronchitis, Chronic Obstructive Pulmonary Disease (COPD), Pneumonia EENT Medical History: Reports: None Neurological Medical History: Denies: Seizures Endocrine Medical History: Reports: None Renal/ Medical History: Reports: None Malignancy Medical History: Reports: None GI Medical History: Reports: Cirrhosis, Gastroesophageal Reflux Disease, Hepatitis - HEP. C Musculoskeltal Medical History: Reports: Arthritis Skin Medical History: Reports: None Psychiatric Medical History: Reports: Depression Traumatic Medical History: Reports: None Hematology: Denies: Anemia Infectious Medical History: Reports: Hepatitis C Past Surgical History Past Surgical History: Reports: Cholecystectomy, Orthopedic Surgery - L-4 VERTEBROPLASTY 01/25/17, Other - L-4 VERTEBROPLASTY 01/25 Denies: Pacemaker Social History Information Source: Patient Lives with: Alone Smoking Status: Never Smoker Frequency of Alcohol Use: None Hx Recreational Drug Use: No Drugs: None Hx Prescription Drug Abuse: No - Advance Directive Resuscitation Status: Full Code Family History Family History: CAD, Hypertension Parental Family History Reviewed: Yes Children Family History Reviewed: Yes Sibling(s) Family History Reviewed.: Yes Medication/Allergy Home Medications: Furosemide [Lasix 20 mg Tablet] 20 mg PO DAILY 01/16/18 Nadolol [Corgard 40 mg Tablet] 40 mg PO DAILY 01/16/18 Oxycodone HCl/Acetaminophen [Percocet 10-325 mg Tablet] 1 tab PO Q8HP PRN Pantoprazole Sodium [Protonix] 40 mg PO DAILY 01/16/18 Pramipexole Di-HCl [Mirapex 0.5 mg Tablet] 0.5 mg PO Q12 01/16/18 Sertraline HCl [Zoloft] 100 mg PO DAILY 01/16/18 Spironolactone [Aldactone] 50 mg PO DAILY 01/16/18 Tamsulosin HCl [Flomax 0.4 mg Cap.sr] 0.4 mg PO DAILY 01/16/18 Tizanidine HCl [Zanaflex 4 mg Tablet] 2 mg PO QHS 01/16/18 Allergies/Adverse Reactions: No Known Allergies Allergy (Verified 01/26/17 20:24) Review of Systems Constitutional: PRESENT: weakness, weight loss. ABSENT: chills, fever(s), headache(s), weight gain Eyes: ABSENT: visual disturbances Ears: ABSENT: hearing changes Cardiovascular: ABSENT: chest pain, dyspnea on exertion, edema, orthropnea, palpitations Respiratory: ABSENT: cough, hemoptysis Gastrointestinal: ABSENT: abdominal pain, constipation, diarrhea, hematemesis, hematochezia, nausea, vomiting Genitourinary: ABSENT: dysuria, hematuria Musculoskeletal: PRESENT: back pain. ABSENT: joint swelling Integumentary: ABSENT: rash, wounds Neurological: PRESENT: frequent falls, weakness. ABSENT: abnormal gait, abnormal speech, confusion, dizziness, focal weakness, syncope Psychiatric: ABSENT: anxiety, depression, homidical ideation, suicidal ideation Endocrine: ABSENT: cold intolerance, heat intolerance, polydipsia, polyuria Hematologic/Lymphatic: ABSENT: easy bleeding, easy bruising Physical Exam Vital Signs: Temp Pulse Resp BP Pulse Ox 98.1 F 74 22 H 140/74 H 100 01/16/18 14:40 01/16/18 14:40 01/16/18 14:40 01/16/18 14:40 01/16/18 14:40 Intake & Output 01/15/18 01/16/18 01/17/18 06:59 06:59 06:59 Weight 78.3 kg General appearance: PRESENT: no acute distress, well-developed, well-nourished Head exam: PRESENT: atraumatic, normocephalic Eye exam: PRESENT: conjunctiva pink, EOMI, PERRLA, scleral icterus Ear exam: PRESENT: normal external ear exam Mouth exam: PRESENT: moist, tongue midline Neck exam: ABSENT: carotid bruit, JVD, lymphadenopathy, thyromegaly Respiratory exam: PRESENT: clear to auscultation onel, symmetrical, unlabored. ABSENT: rales, rhonchi, wheezes Cardiovascular exam: PRESENT: RRR, +S1, +S2. ABSENT: diastolic murmur, rubs, systolic murmur Pulses: PRESENT: normal dorsalis pedis pul Vascular exam: PRESENT: normal capillary refill GI/Abdominal exam: PRESENT: normal bowel sounds, soft. ABSENT: distended, guarding, mass, organolmegaly, rebound, tenderness Rectal exam: PRESENT: deferred Extremities exam: PRESENT: full ROM. ABSENT: calf tenderness, clubbing, pedal edema Neurological exam: PRESENT: alert, awake, oriented to person, oriented to place , oriented to time, oriented to situation, CN II-XII grossly intact. ABSENT: motor sensory deficit Psychiatric exam: PRESENT: appropriate affect, normal mood. ABSENT: homicidal ideation, suicidal ideation Skin exam: PRESENT: dry, intact, jaundice, warm. ABSENT: cyanosis, rash Results Laboratory Results: 01/16/18 12:22 01/16/18 01/16/18 01/16/18 09:39 12:22 13:42 Sodium 148.0 H Potassium 3.4 L Chloride 112 H Carbon Dioxide 27 Anion Gap 9 BUN 31 H Creatinine 0.55 Est GFR ( Amer) > 60 Est GFR (Non-Af Amer) > 60 Glucose 132 H Calcium 8.8 Ammonia 55.9 H Urine Color YELLOW Urine Appearance CLOUDY Urine pH 5.0 Ur Specific [place] 1.029 Urine Protein 30 H Urine Glucose (UA) NEGATIVE Urine Ketones TRACE H Urine Blood NEGATIVE Urine Nitrite NEGATIVE Ur Leukocyte Esterase LARGE H Urine WBC (Auto) 86 Urine RBC (Auto) 9 01/16/18 01/16/18 12:22 12:22 Creatine Kinase 1511 H Troponin I 0.028 Impressions: Head CT 01/16/18 04:36 IMPRESSION: No acute findings. Lumbar Spine CT 01/16/18 04:36 IMPRESSION: 1. Moderate L4 anterior vertebral compression deformity with vertebroplasty. 2. A 2.7 cm diameter abdominal aortic aneurysm. Follow-up recommended every five years. Assessment & Plan - Diagnosis (1) Rhabdomyolysis Qualifiers: Rhabdomyolysis type: non-traumatic Qualified Code(s): M62.82 - Rhabdomyolysis Is this a current diagnosis for this admission?: Yes Plan: The patient has had multiple falls over the last week with a fall last night resulting in him having spent the night on the floor and calling EMS for assistance this morning. Creatinine kinase is elevated to 2772. He is admitted to the medical floor. He is placed on IV maintenance fluids. We will encourage p.o. fluid intake. We will continue to monitor. (2) Urinary tract infection Qualifiers: Urinary tract infection type: acute cystitis Hematuria presence: without hematuria Qualified Code(s): N30.00 - Acute cystitis without hematuria Is this a current diagnosis for this admission?: Yes Plan: Urinalysis reveals a UTI. Urine and blood cultures are pending The patient is empirically placed on IV Rocephin. Will adjust antibiotics as cultures and sensitivities become available. He will also receive IV maintenance fluids.. (3) Hyperammonemia Is this a current diagnosis for this admission?: Yes Plan: Secondary to end-stage liver disease and admitted noncompliance with lactulose therapy as the patient reports nausea, vomiting, and loose stools. The patient is alert and oriented; does not appear to have any cognitive deficits, however, reports progressively worsening generalized weakness resulting in multiple falls. Ammonia is found to be 55.9. We will resume lactulose p.o. twice daily. Antiemetics available as needed. We will also place the patient on Xifaxan 550 mg twice daily. (4) End stage liver disease Is this a current diagnosis for this admission?: Yes Plan: Meld score is 15; 6% [address] will place the patient on lactulose and rifaximin therapy. We will continue his outpatient therapy of nadolol, spironolactone, and Lasix. Continue PPI. (5) Dehydration Is this a current diagnosis for this admission?: Yes Plan: Continue maintenance IV fluids. Encourage p.o. fluid intake. We will monitor electrolytes with daily chemistries. (6) Fall Qualifiers: Encounter type: initial encounter Qualified Code(s): W19.XXXA - Unspecified fall, initial encounter Is this a current diagnosis for this admission?: Yes Plan: Multifactorial secondary to age, chronic back pain, chronic opiate dependence, and hyperammonemia. Fall precautions are in place. We will ask PT/OT to evaluate the patient. Likely will benefit from nursing home for, at minimum, short-term rehabilitation. Have asked discharge planning to assist with placement needs. - Time Time Spent: 50 to 70 Minutes Medications reviewed and adjusted accordingly: Yes Anticipated discharge: SNF - Short term rehabilitation Within: within 48 hours - Inpatient Certification Based on my medical assessment, after consideration of the patient's comorbidities, presenting symptoms, or acuity I expect that the services needed warrant INPATIENT care.: Yes I certify that my determination is in accordance with my understanding of Medicare's requirements for reasonable and necessary INPATIENT services [42 CFR 412.3e].: Yes Medical Necessity: Need For IV Fluids
[2018-01-16] MEDS: LACTULOSE SYRUP 20 GM/30 ML UDCUP PO SCH (17:46)
[2018-01-16] MEDS: RIFAXIMIN 550 MG TABLET PO SCH (20:23)
[2018-01-17 05:36] LABS: HEMATOCRIT 39.1 % (37.9-51.0); HEMOGLOBIN 13.2 g/dL (13.5-17.0); MEAN CORPUSCULAR HEMOGLOBIN 31.3 pg (27.0-33.4); MEAN CORPUSCULAR HGB CONC 33.8 g/dL (32.0-36.0); MEAN CORPUSCULAR VOLUME 93 fl (80-97); RED BLOOD COUNT 4.23 10^6/uL (4.35-5.55); RED CELL DISTRIBUTION WIDTH 19.7 % (11.5-14.0)
[2018-01-17 05:53] LABS: ANION GAP 8 (5-19); BLOOD UREA NITROGEN 29 mg/dL (7-20); CARBON DIOXIDE 26 mmol/L (22-30); CHLORIDE 113 mmol/L (98-107); GLUCOSE 91 mg/dL (75-110); SODIUM 146.5 mmol/L (137-145)
[2018-01-17] MEDS: HEPARIN SOD (PORCINE) 5,000 UNIT/ML 1 ML SYRINGE SUBCUT SCH (06:10)
[2018-01-17 06:20] LABS: PLATELET COUNT 66 10^3/uL (150-450)
[2018-01-17] MEDS: LANSOPRAZOLE 30 MG TAB.RAP.DR PO SCH (06:21)
[2018-01-17] MEDS: PRAMIPEXOLE DI-HCL 0.5 MG TABLET PO SCH ×2 (06:21→17:51)
[2018-01-17] MEDS: OXYCODONE-ACETAMINOPHEN 5-325 MG TABLET PO PRN ×3 (06:22→23:40)
[2018-01-17] MEDS: OXYCODONE HCL IR 5 MG TABLET PO PRN ×2 (06:22→23:50)
[2018-01-17] MEDS ORDERED: FUROSEMIDE 20 MG TABLET PO SCH (10:00)
[2018-01-17] MEDS ORDERED: CEFTRIAXONE 1 GM/D5W RTU 1 GM/50 ML RTUPB IV SCH (10:00)
[2018-01-17] MEDS ORDERED: (PENDING PHARMACY ID) (Spironolactone [Aldactone] 50 MG) PO SCH (10:00)
[2018-01-17] MEDS ORDERED: NORMAL SALINE 1000 ML 1,000 ML IV PRN (10:01)
[2018-01-17] MEDS: LACTULOSE SYRUP 20 GM/30 ML UDCUP PO SCH ×2 (10:20→17:50)
[2018-01-17] MEDS: SPIRONOLACTONE 25 MG TABLET PO SCH (10:22)
[2018-01-17] MEDS: TAMSULOSIN HCL 0.4 MG CAP.SR.24H PO SCH (10:23)
[2018-01-17] MEDS: NADOLOL 40 MG TABLET PO SCH (10:23)
[2018-01-17] MEDS: SERTRALINE HCL 50 MG TABLET PO SCH (10:24)
[2018-01-17] MEDS: RIFAXIMIN 550 MG TABLET PO SCH ×2 (10:25→17:51)
[2018-01-17] MEDS: CEFTRIAXONE SODIUM 1,000 MG in DEXTROSE 5%-WATER 50 ML IV SCH (10:54)
[2018-01-17] MEDS ORDERED: VANCOMYCIN HCL 0 MG in DEXTROSE 5%-WATER 250 ML IV NR (16:00)
--- NOTE | 2018-01-17 16:03 | PDOC PROGRESS REPORT ---
Subjective Progress Note for:: 01/17/18 Subjective:: The patient is a 72-year-old male with past medical history of hypertension, end -stage liver disease, recent variceal rupture, hepatitis C, and chronic back pain who was admitted on 01/16/18 for dehydration, rhabdomyolysis, and frequent falls. He was also incidentally found to have a urinary tract infection. He is seen on morning rounds. He is found resting comfortably in the recliner on room air. He states that he has to sleep in the recliner last night due to discomfort with the hospital bed. He reports some lower back pain and lower leg muscle discomfort from his sleeping positions and requests to have his nightly Zanaflex resumed if possible. Otherwise, he reports that he is feeling much better and is more awake and energetic today as compared to prior to admission. He reports that his generalized weakness seems to have improved slightly and his hand coordination/ tremor also seems to be improved. He has not yet worked with physical therapy. He requests to have assistance through home health nursing and possibly physical therapy at discharge. He has just moved into a new apartment that is on the ground level in order to allow him to continue living independently. He has family members that check on him frequently and he would prefer to be discharged back to home if at all possible. Otherwise he has no new questions or concerns today. Reason For Visit: RHABDOMYOLYSIS,DEHYDRATION,FREQUENT FALLS Physical Exam Vital Signs: Temp Pulse Resp BP Pulse Ox 98.3 F 68 16 110/60 98 01/17/18 11:28 01/17/18 11:28 01/17/18 11:28 01/17/18 11:35 01/17/18 11:28 Intake & Output 01/16/18 01/17/18 01/18/18 06:59 06:59 06:59 Intake Total 790 Output Total 520 Balance 270 Weight 80.2 kg General appearance: PRESENT: no acute distress, well-developed, well-nourished, other - Overweight Head exam: PRESENT: atraumatic, normocephalic Eye exam: PRESENT: conjunctiva pink, EOMI, PERRLA. ABSENT: scleral icterus Ear exam: PRESENT: normal external ear exam Mouth exam: PRESENT: moist, tongue midline Neck exam: ABSENT: carotid bruit, JVD, lymphadenopathy, thyromegaly Respiratory exam: PRESENT: clear to auscultation onel, symmetrical, unlabored. ABSENT: rales, rhonchi, wheezes Cardiovascular exam: PRESENT: RRR, +S1, +S2. ABSENT: diastolic murmur, rubs, systolic murmur Pulses: PRESENT: normal dorsalis pedis pul Vascular exam: PRESENT: normal capillary refill GI/Abdominal exam: PRESENT: normal bowel sounds, soft. ABSENT: distended, guarding, mass, organolmegaly, rebound, tenderness Rectal exam: PRESENT: deferred Extremities exam: PRESENT: full ROM. ABSENT: calf tenderness, clubbing, pedal edema Neurological exam: PRESENT: alert, awake, oriented to person, oriented to place , oriented to time, oriented to situation, CN II-XII grossly intact. ABSENT: motor sensory deficit Psychiatric exam: PRESENT: appropriate affect, normal mood. ABSENT: homicidal ideation, suicidal ideation Skin exam: PRESENT: dry, intact, warm. ABSENT: cyanosis, jaundice, rash Results Laboratory Results: 01/17/18 05:20 01/17/18 05:20 01/17/18 01/17/18 05:20 05:20 WBC 6.0 RBC 4.23 L Hgb 13.2 L Hct 39.1 MCV 93 MCH 31.3 MCHC 33.8 RDW 19.7 H Plt Count 66 L Sodium 146.5 H Potassium 4.0 Chloride 113 H Carbon Dioxide 26 Anion Gap 8 BUN 29 H Creatinine 0.58 Est GFR ( Amer) > 60 Est GFR (Non-Af Amer) > 60 Glucose 91 Calcium 9.0 01/16/18 09:39 Clean Catch Midstream Urine Culture - Final Mixed Skin. Possible Pathogen 01/16/18 01/16/18 01/17/18 12:22 12:22 05:20 Creatine Kinase 1511 H 783 H Troponin I 0.028 Impressions: Head CT 01/16/18 04:36 IMPRESSION: No acute findings. Lumbar Spine CT 01/16/18 04:36 IMPRESSION: 1. Moderate L4 anterior vertebral compression deformity with vertebroplasty. 2. A 2.7 cm diameter abdominal aortic aneurysm. Follow-up recommended every five years. Assessment & Plan - Diagnosis (1) Rhabdomyolysis Qualifiers: Rhabdomyolysis type: non-traumatic Qualified Code(s): M62.82 - Rhabdomyolysis Is this a current diagnosis for this admission?: Yes Plan: Improved; CK trending down. The patient has had multiple falls over the last week with a fall last night resulting in him having spent the night on the floor and calling EMS for assistance this morning. On admission, Creatinine kinase is elevated to 2772. He is admitted to the medical floor. He is placed on IV maintenance fluids. We will encourage p.o. fluid intake. We will continue to monitor. (2) Urinary tract infection Qualifiers: Urinary tract infection type: acute cystitis Hematuria presence: without hematuria Qualified Code(s): N30.00 - Acute cystitis without hematuria Is this a current diagnosis for this admission?: Yes Plan: Urinalysis reveals a UTI. The patient remains afebrile and his WBCs are normal. One set of blood cultures are positive for gram positive cocci in clusters. Urine culture demonstrated mixed skin harvinder with possible pathogen recommending we collection. Repeat urine culture is pending. The patient is empirically placed on IV Rocephin. We will add IV vancomycin today for positive blood cultures. Will continue to adjust antibiotics as cultures and sensitivities become available. He will also receive IV maintenance fluids. (3) Hyperammonemia Is this a current diagnosis for this admission?: Yes Plan: Secondary to end-stage liver disease and admitted noncompliance with lactulose therapy as the patient reports nausea, vomiting, and loose stools. The patient is alert and oriented; does not appear to have any cognitive deficits, however, reports progressively worsening generalized weakness resulting in multiple falls. Scleral icterus and jaundice appear improved today. Ammonia 55.9. We will resume lactulose p.o. twice daily. Antiemetics available as needed. We will also place the patient on Xifaxan 550 mg twice daily. (4) End stage liver disease Is this a current diagnosis for this admission?: Yes Plan: Meld score is 15; 6% [address] the patient on lactulose and rifaximin therapy. We will continue his outpatient therapy of nadolol, spironolactone. Will hold lasix briefly while addressing dehydration. Continue PPI. (5) Dehydration Is this a current diagnosis for this admission?: Yes Plan: Continue maintenance IV fluids. Will hold home dose lasix. Encourage p.o. fluid intake. We will monitor electrolytes with daily chemistries. (6) Fall Qualifiers: Encounter type: initial encounter Qualified Code(s): W19.XXXA - Unspecified fall, initial encounter Is this a current diagnosis for this admission?: Yes Plan: Multifactorial secondary to age, chronic back pain, chronic opiate dependence, and hyperammonemia. Fall precautions are in place. We will ask PT/OT to evaluate the patient. Likely will benefit from nursing home for, at minimum, short-term rehabilitation although patient is requesting d/c to home with home health services. Have asked discharge planning to assist with placement needs. - Time Time Spent with patient: 15-24 minutes Medications reviewed and adjusted accordingly: Yes
[2018-01-17] MEDS: NORMAL SALINE 1000 ML 1,000 ML IV PRN (17:50)
[2018-01-17] MEDS: VANCOMYCIN HCL 1,000 MG in DEXTROSE 5%-WATER 250 ML IV SCH (17:52)
[2018-01-17] MEDS: NYSTATIN TOPICAL POWDER 15 GM TP SCH (17:52)
[2018-01-17] MEDS: TIZANIDINE HCL 4 MG TABLET PO SCH (23:40)
[2018-01-18] MEDS: LANSOPRAZOLE 30 MG TAB.RAP.DR PO SCH (02:26)
[2018-01-18] MEDS: PRAMIPEXOLE DI-HCL 0.5 MG TABLET PO SCH ×2 (05:09→17:25)
[2018-01-18] MEDS: VANCOMYCIN HCL 1,000 MG in DEXTROSE 5%-WATER 250 ML IV SCH ×2 (05:42→17:23)
[2018-01-18 06:56] LABS: ALANINE AMINOTRANSFERASE 64 U/L (21-72); ALBUMIN 2.6 g/dL (3.5-5.0); ALKALINE PHOSPHATASE 103 U/L (38-126); ANION GAP 9 (5-19); ASPARTATE AMINO TRANSFERASE 102 U/L (17-59); BILIRUBIN,DIRECT 0.4 mg/dL (0.0-0.4); BILIRUBIN,TOTAL 1.3 mg/dL (0.2-1.3); BLOOD UREA NITROGEN 21 mg/dL (7-20); CALCIUM 8.5 mg/dL (8.4-10.2); CARBON DIOXIDE 25 mmol/L (22-30); CHLORIDE 109 mmol/L (98-107); GLUCOSE 121 mg/dL (75-110); POTASSIUM 3.7 mmol/L (3.6-5.0); SODIUM 142.7 mmol/L (137-145); TOTAL PROTEIN 5.6 g/dL (6.3-8.2)
[2018-01-18 07:11] LABS: HEMATOCRIT 32.6 % (37.9-51.0); HEMOGLOBIN 11.3 g/dL (13.5-17.0); MEAN CORPUSCULAR HEMOGLOBIN 31.4 pg (27.0-33.4); MEAN CORPUSCULAR HGB CONC 34.6 g/dL (32.0-36.0); MEAN CORPUSCULAR VOLUME 91 fl (80-97); RED CELL DISTRIBUTION WIDTH 19.3 % (11.5-14.0)
[2018-01-18 08:02] LABS: PLATELET COUNT 50 10^3/uL (150-450)
[2018-01-18] MEDS: OXYCODONE-ACETAMINOPHEN 5-325 MG TABLET PO PRN (08:42)
[2018-01-18] MEDS: OXYCODONE HCL IR 5 MG TABLET PO PRN ×2 (08:43→17:26)
[2018-01-18] MEDS: NADOLOL 40 MG TABLET PO SCH (10:09)
[2018-01-18] MEDS: RIFAXIMIN 550 MG TABLET PO SCH ×2 (10:11→17:25)
[2018-01-18] MEDS: SERTRALINE HCL 50 MG TABLET PO SCH (10:12)
[2018-01-18] MEDS: TAMSULOSIN HCL 0.4 MG CAP.SR.24H PO SCH (10:14)
[2018-01-18] MEDS: SPIRONOLACTONE 25 MG TABLET PO SCH (10:15)
[2018-01-18] MEDS: NYSTATIN TOPICAL POWDER 15 GM TP SCH ×2 (10:18→17:25)
[2018-01-18] MEDS: CEFTRIAXONE SODIUM 1,000 MG in DEXTROSE 5%-WATER 50 ML IV SCH (10:20)
[2018-01-18] MEDS ORDERED: LIDOCAINE 5% (700 MG) TRANSDERMAL ADH..PATCH TP ONE (11:00)
[2018-01-18] MEDS: LACTULOSE SYRUP 20 GM/30 ML UDCUP PO SCH ×2 (12:41→17:23)
--- NOTE | 2018-01-18 14:33 | PDOC PROGRESS REPORT ---
Subjective Progress Note for:: 01/18/18 Subjective:: The patient is a 72-year-old male with past medical history of hypertension, end -stage liver disease, recent variceal rupture (1 year ago; correction from H&P) , hepatitis C, and chronic back pain who was admitted on 01/16/18 for dehydration , rhabdomyolysis, and frequent falls. He was also incidentally found to have a urinary tract infection. He is seen on morning rounds. He is found resting comfortably in the recliner on room air. He reports continued chronic back and leg pain; he does state that he understands that his medications may be causing some sedation and leading to his falls. He would prefer not to adjust medications if possible but is agreeable if necessary. He reports that he was able to ambulate with physical therapy yesterday. He is agreeable to short-term rehabilitation upon discharge. His ultimate goal is to return home with home health services. With his permission, the patient's sister was called at home. We discussed his hospital stay and recommendations for rehabilitation. The sister is grateful for these recommendations as she has noticed that the patient has become quite confused at home and has required much more support than is his norm. He denies fever, chills, headache, dizziness, chest pain, palpitations, dyspnea , orthopnea, abdominal pain, nausea vomiting and diarrhea. They have no other questions or concerns today. Reason For Visit: RHABDOMYOLYSIS,DEHYDRATION,FREQUENT FALLS Physical Exam Vital Signs: Temp Pulse Resp BP Pulse Ox 98.3 F 75 18 113/62 95 01/18/18 07:45 01/18/18 07:45 01/18/18 07:45 01/18/18 07:45 01/18/18 07:45 Intake & Output 01/17/18 01/18/18 01/19/18 06:59 06:59 06:59 Intake Total 790 1180 Output Total 520 770 Balance 270 410 Weight 80.2 kg 80.2 kg General appearance: PRESENT: no acute distress, cooperative, well-developed, well-nourished Head exam: PRESENT: atraumatic, normocephalic Eye exam: PRESENT: conjunctiva pink, EOMI, PERRLA. ABSENT: scleral icterus Ear exam: PRESENT: normal external ear exam Mouth exam: PRESENT: moist, tongue midline Neck exam: ABSENT: carotid bruit, JVD, lymphadenopathy, thyromegaly Respiratory exam: PRESENT: clear to auscultation onel, symmetrical, unlabored. ABSENT: rales, rhonchi, wheezes Cardiovascular exam: PRESENT: RRR, +S1, +S2. ABSENT: diastolic murmur, rubs, systolic murmur Pulses: PRESENT: normal dorsalis pedis pul Vascular exam: PRESENT: normal capillary refill GI/Abdominal exam: PRESENT: distended, normal bowel sounds, soft. ABSENT: guarding, mass, organolmegaly, rebound, tenderness Rectal exam: PRESENT: deferred Extremities exam: PRESENT: full ROM. ABSENT: calf tenderness, clubbing, pedal edema Musculoskeletal exam: ABSENT: ambulatory - Not observed; did ambulat with PT yesterday Neurological exam: PRESENT: alert, awake, oriented to person, oriented to place , oriented to time, oriented to situation, CN II-XII grossly intact, other - Slightly forgetful. ABSENT: motor sensory deficit Psychiatric exam: PRESENT: appropriate affect, normal mood. ABSENT: homicidal ideation, suicidal ideation Skin exam: PRESENT: dry, intact, warm. ABSENT: cyanosis, jaundice, rash Results Laboratory Results: 01/18/18 06:34 01/18/18 06:34 01/18/18 01/18/18 01/18/18 06:34 06:34 06:34 WBC 3.0 L RBC 3.60 L Hgb 11.3 L Hct 32.6 L MCV 91 MCH 31.4 MCHC 34.6 RDW 19.3 H Plt Count 50 L Sodium 142.7 Potassium 3.7 Chloride 109 H Carbon Dioxide 25 Anion Gap 9 BUN 21 H Creatinine 0.63 Est GFR ( Amer) > 60 Est GFR (Non-Af Amer) > 60 Glucose 121 H Calcium 8.5 Total Bilirubin 1.3 AST 102 H ALT 64 Alkaline Phosphatase 103 Ammonia 92.3 H Total Protein 5.6 L Albumin 2.6 L 01/16/18 09:39 Clean Catch Midstream Urine Culture - Final Mixed Skin. Possible Pathogen 01/16/18 01/16/18 01/17/18 12:22 12:22 05:20 Creatine Kinase 1511 H 783 H Troponin I 0.028 Impressions: Head CT 01/16/18 04:36 IMPRESSION: No acute findings. Lumbar Spine CT 01/16/18 04:36 IMPRESSION: 1. Moderate L4 anterior vertebral compression deformity with vertebroplasty. 2. A 2.7 cm diameter abdominal aortic aneurysm. Follow-up recommended every five years. Assessment & Plan - Diagnosis (1) Rhabdomyolysis Qualifiers: Rhabdomyolysis type: non-traumatic Qualified Code(s): M62.82 - Rhabdomyolysis Is this a current diagnosis for this admission?: Yes Plan: Improved; CK trending down. The patient has had multiple falls over the last week with a fall resulting in him having spent the night on the floor and calling EMS for assistance in the morning. On admission, Creatinine kinase is elevated to 2772. He is admitted to the medical floor. He is placed on IV maintenance fluids. We will encourage p.o. fluid intake. We will continue to monitor. (2) Urinary tract infection Qualifiers: Urinary tract infection type: acute cystitis Hematuria presence: without hematuria Qualified Code(s): N30.00 - Acute cystitis without hematuria Is this a current diagnosis for this admission?: Yes Plan: Urinalysis reveals a UTI. One set of blood cultures are positive for gram positive cocci in clusters. Urine culture demonstrated mixed skin harvinder with possible pathogen recommending we collection. Repeat urine culture is pending. The patient is empirically placed on IV Rocephin. IV vancomycin added for positive blood cultures. Day #2 of abx therapy. Will continue to adjust antibiotics as cultures and sensitivities become available. He will also receive IV maintenance fluids. (3) Hyperammonemia Is this a current diagnosis for this admission?: Yes Plan: Secondary to end-stage liver disease and admitted noncompliance with lactulose therapy as the patient reports nausea, vomiting, and loose stools. The patient is alert and oriented; does not appear to have any cognitive deficits, however, reports progressively worsening generalized weakness resulting in multiple falls. Scleral icterus and jaundice appear improved today. Ammonia trending up; 55.9--> 92.3. We increase lactulose today. Antiemetics available as needed. We will also place the patient on Xifaxan 550 mg twice daily. (4) End stage liver disease Is this a current diagnosis for this admission?: Yes Plan: Meld score is 15; 6% [address] the patient on lactulose and rifaximin therapy. We will continue his outpatient therapy of nadolol, spironolactone. Will hold lasix briefly while addressing dehydration. Continue PPI. (5) Dehydration Is this a current diagnosis for this admission?: Yes Plan: Continue maintenance IV fluids. Will hold home dose lasix. Encourage p.o. fluid intake. We will monitor electrolytes with daily chemistries. (6) Fall Qualifiers: Encounter type: initial encounter Qualified Code(s): W19.XXXA - Unspecified fall, initial encounter Is this a current diagnosis for this admission?: Yes Plan: Multifactorial secondary to age, chronic back pain, chronic opiate dependence, and hyperammonemia. Fall precautions are in place. We will ask PT/OT to evaluate the patient. Likely will benefit from [facility] for, at minimum, short-term rehabilitation. Have asked discharge planning to assist with placement needs. (7) Anemia Qualifiers: Anemia type: unspecified type Qualified Code(s): D64.9 - Anemia, unspecified Is this a current diagnosis for this admission?: Yes Plan: Likely secondary to hemodilution as WBCs and PLTs are also down. WBC 13.5-->11.3 No evidence of active bleeding. Will observe closely for s/sx of GI bleed given patient's history or previous variceal rupture. Continue PPI. Will place patient on multivitamin with iron. (8) Chronic back pain Qualifiers: Back pain location: low back pain Is this a current diagnosis for this admission?: Yes Plan: Patient is prescribed oxcycodone/apap 10-325 tid and zanaflex 2 mg qHS for chronic musculoskeletal pain. The patient's sister is concerned that he may be over-sedated ; she has noted a decline in his function after increase of oxycodone dose. Patient is agreeable to reducing medications as necessary. Will trial dose reduction to oxycodone 7.5 mg TID prn. Will also provide lidoderm patch. Encourage nonpharmacological interventions such as ice, heat, and increased mobility. - Time Time Spent with patient: 25-34 minutes Medications reviewed and adjusted accordingly: Yes Anticipated discharge: Acute Rehab Within: within 48 hours
[2018-01-18] MEDS: TIZANIDINE HCL 4 MG TABLET PO SCH (22:14)
--- NOTE | 2018-01-19 00:24 | Palliative Consultation Report ---
Consultation From:: JUAN RODRIGUEZ - [facility] HPI: Palliative Care Consult visit 01/18/18 3: 40 PM Appreciate consult request with this 72 year old patient who is admitted with end stage liver disease and rhabdomyolosis following fall at home. Mr. Hale is awake in his room and is up in his recliner because he says it is more comfortable than the bed due to past back injury. Mr. Hale is alert and oriented, but very anxious and upset because he wants to go home for the weekend and come back later. He cannot understand that he needs to stay in the hospital for treatment. He tells me he knows he is going to go to a rehab facility to help him get stronger. He tells me he has fallen a few times at home and he didnt know he had infection when he was home but he relates falls to the UTI he is being treated for with IV antibiotics. He says he wants all treatmetns he needs to get better and is agreeable for any treatment, However, in the next moment he repeats that he wants to go home for the weekend and will come back on Sunday. His ammonia levels have increased since admission from 55 to 92. His albumin levels are low with protein malnutrition. While he appears alert about his situation, he also is confused about other aspects of his care and is very anxious. He denies pain or nausea but then says his back hurts. Onset: Just prior to arrival Onset/Duration: Gradual Quality of Pain: Dull Severity: Mild Exacerbated by: Other - Back pain worse when lying in bed Relieved by: Sitting Past Medical History(Consults) - General Information Source: Patient, [facility] Records Home Medications: Furosemide [Lasix 20 mg Tablet] 20 mg PO DAILY 01/16/18 Nadolol [Corgard 40 mg Tablet] 40 mg PO DAILY 01/16/18 Oxycodone HCl/Acetaminophen [Percocet 10-325 mg Tablet] 1 tab PO Q8HP PRN Pantoprazole Sodium [Protonix] 40 mg PO DAILY 01/16/18 Pramipexole Di-HCl [Mirapex 0.5 mg Tablet] 0.5 mg PO Q12 01/16/18 Sertraline HCl [Zoloft] 100 mg PO DAILY 01/16/18 Spironolactone [Aldactone] 50 mg PO DAILY 01/16/18 Tamsulosin HCl [Flomax 0.4 mg Cap.sr] 0.4 mg PO DAILY 01/16/18 Tizanidine HCl [Zanaflex 4 mg Tablet] 2 mg PO QHS 01/16/18 Allergies/Adverse Reactions: No Known Allergies Allergy (Verified 01/26/17 20:24) - Social History Lives with: Alone Family History: CAD, Hypertension Parental Family History Reviewed: No Children Family History Reviewed: No Sibling(s) Family History Reviewed.: No Smoking Status: Never Smoker Frequency of Alcohol Use: None - Unknown Hx Recreational Drug Use: No Drugs: None Hx Prescription Drug Abuse: No - Past Medical History Cardiac Medical History: Reports: Hx Hypertension Denies: Hx Coronary Artery Disease, Hx Heart Attack Pulmonary Medical History: Reports: Hx Asthma - as a child Denies: Hx Bronchitis, Hx COPD, Hx Pneumonia EENT Medical History: Reports: None Neurological Medical History: Denies: Hx Cerebrovascular Accident, Hx Seizures Endocrine Medical History: Reports: None Renal/ Medical History: Reports: None. Denies: Hx Peritoneal Dialysis Malignancy Medical History: Reports None GI Medical History: Reports: Hx Cirrhosis, Hx Gastroesophageal Reflux Disease, Hx Hepatitis - HEP. C Musculoskeltal Medical History: Reports Hx Arthritis, Reports Hx Musculoskeletal Trauma Skin Medical History: Reports None Psychiatric Medical History: Reports: Hx Depression Traumatic Medical History: Reports: None, Other - Reports old back injury Infectious Medical History: Reports: Hx Hepatitis - HEP. C Hematology: Denies: Anemia - Surgical History Past Surgical History: Reports: Hx Cholecystectomy, Hx Orthopedic Surgery - L-4 VERTEBROPLASTY 01/25/17, Other - L-4 VERTEBROPLASTY 01/25. Denies: Hx Pacemaker Review of systems All systems: reviewed and no additional remarkable complaints except as stated Constitutional: Weakness Cardiovascular: Lightheaded Respiratory: No symptoms reported Musculoskeltal: Back pain Skin: No symptoms reported Neurological/Psychological: Confusion, Anxiety, Weakness Ojective:Exam Vital Signs: Temp Pulse Resp BP Pulse Ox 98.6 F 78 18 111/53 L 94 01/18/18 19:50 01/18/18 19:50 01/18/18 19:50 01/18/18 19:50 01/18/18 19:50 Intake & Output 01/17/18 01/18/18 01/19/18 06:59 06:59 06:59 Intake Total 790 1180 236 Output Total 989 252 850 Balance 270 410 -614 Weight 80.2 kg 80.2 kg - General General Appearance: Alert, Anxious In distress: None - HEENT Head: Normocephalic, Atraumatic Eyes: Normal Conjunctiva: Normal - Neck Neck: Normal, Supple - Back Back Note: back pain with postiioning - Respiratory Respiratory Status: No respiratory distress Chest Status: Nontender Breath sounds: Clear - Abdominal Inspection: Normal Distension: No distension Tenderness: Nontender - Neurological Cognition: Confused Orientation: Oriented to person, Oriented to place, Oriented to time Speech: Normal Cranial nerves: Normal 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 Anxious. Objective-Diagnostic Laboratory: 01/18/18 06:34 01/18/18 06:34 01/18/18 01/18/18 01/18/18 06:34 06:34 06:34 WBC 3.0 L RBC 3.60 L Hgb 11.3 L Hct 32.6 L MCV 91 MCH 31.4 MCHC 34.6 RDW 19.3 H Plt Count 50 L Sodium 142.7 Potassium 3.7 Chloride 109 H Carbon Dioxide 25 Anion Gap 9 BUN 21 H Creatinine 0.63 Est GFR ( Amer) > 60 Est GFR (Non-Af Amer) > 60 Glucose 121 H Calcium 8.5 Total Bilirubin 1.3 AST 102 H ALT 64 Alkaline Phosphatase 103 Ammonia 92.3 H Total Protein 5.6 L Albumin 2.6 L 01/16/18 01/16/18 01/17/18 12:22 12:22 05:20 Creatine Kinase 1511 H 783 H Troponin I 0.028 Plan and Recommendation Plan and Recommendation: Anum is alert but nonrealistic about leaving hospital. He says he is agreeable to got o rehab to get PT but wants to make sure he can go to his house on weekends. when asked if he has pets or something he needs to check on at home, he laughs and says the only animals are his neighbors. He is very insistent on going home even when explained that he has to continue his IV antibiotics to treat his UTI. He tells me he wants ll treatments done but I did not specify code status or ventilation as patient is so anxious and does not seem able to have grasp of reality of situation, probably due to elevated ammonia. No family members listed on chart. Patient states he doesn't have family. Will follow and as ammonia levels come down, will discuss advance directves. - Time Spent with Patient Time spent with patient: 15 to 30 Minutes
[2018-01-19] MEDS: LACTULOSE SYRUP 20 GM/30 ML UDCUP PO SCH ×4 (00:39→18:19)
[2018-01-19] MEDS: OXYCODONE HCL IR 5 MG TABLET PO PRN ×5 (00:59→22:04)
[2018-01-19 06:35] LABS: ANION GAP 10 (5-19); BLOOD UREA NITROGEN 18 mg/dL (7-20); CALCIUM 9.1 mg/dL (8.4-10.2); CARBON DIOXIDE 25 mmol/L (22-30); CHLORIDE 108 mmol/L (98-107); GLUCOSE 78 mg/dL (75-110); POTASSIUM 3.8 mmol/L (3.6-5.0); SODIUM 142.9 mmol/L (137-145)
[2018-01-19 06:39] LABS: VANCOMYCIN,TROUGH 11.3 ug/mL (5.0-20.0)
[2018-01-19] MEDS: LANSOPRAZOLE 30 MG TAB.RAP.DR PO SCH (06:41)
[2018-01-19] MEDS: PRAMIPEXOLE DI-HCL 0.5 MG TABLET PO SCH ×2 (06:41→18:18)
[2018-01-19] MEDS: VANCOMYCIN HCL 1,000 MG in DEXTROSE 5%-WATER 250 ML IV SCH (06:42)
[2018-01-19 06:52] LABS: HEMATOCRIT 35.4 % (37.9-51.0); HEMOGLOBIN 12.1 g/dL (13.5-17.0); MEAN CORPUSCULAR HEMOGLOBIN 31.3 pg (27.0-33.4); MEAN CORPUSCULAR HGB CONC 34.1 g/dL (32.0-36.0); MEAN CORPUSCULAR VOLUME 92 fl (80-97); RED BLOOD COUNT 3.86 10^6/uL (4.35-5.55); RED CELL DISTRIBUTION WIDTH 19.4 % (11.5-14.0); WHITE BLOOD COUNT 2.7 10^3/uL (4.0-10.5)
[2018-01-19 07:26] LABS: PLATELET COUNT 51 10^3/uL (150-450)
[2018-01-19] MEDS: LIDOCAINE 5% (700 MG) TRANSDERMAL ADH..PATCH TP SCH (09:33)
[2018-01-19] MEDS: SERTRALINE HCL 50 MG TABLET PO SCH (09:34)
[2018-01-19] MEDS: TAMSULOSIN HCL 0.4 MG CAP.SR.24H PO SCH (09:34)
[2018-01-19] MEDS: SPIRONOLACTONE 25 MG TABLET PO SCH (09:34)
[2018-01-19] MEDS: RIFAXIMIN 550 MG TABLET PO SCH ×2 (09:35→18:19)
[2018-01-19] MEDS: MULTIVITAMINS W-IRON TABLET, CHEWABLE PO SCH (09:35)
[2018-01-19] MEDS: NADOLOL 40 MG TABLET PO SCH (09:36)
[2018-01-19] MEDS: CEFTRIAXONE SODIUM 1,000 MG in DEXTROSE 5%-WATER 50 ML IV SCH (09:36)
[2018-01-19] MEDS: NORMAL SALINE 1000 ML 1,000 ML IV PRN (09:38)
[2018-01-19] MEDS: NYSTATIN TOPICAL POWDER 15 GM TP SCH ×2 (09:39→18:19)
[2018-01-19] MEDS ORDERED: MAG HYDROX/AL HYDROX/SIMETH SUSP 30 ML UDCUP PO PRN (10:56)
[2018-01-19] MEDS: BISMUTH SUBSALICYLATE 262 MG TAB.CHEW PO PRN (14:11)
[2018-01-19] MEDS: VANCOMYCIN HCL 1,250 MG in DEXTROSE 5%-WATER 250 ML IV SCH (18:17)
[2018-01-19] MEDS: TIZANIDINE HCL 4 MG TABLET PO SCH (22:04)
[2018-01-20] MEDS: LACTULOSE SYRUP 20 GM/30 ML UDCUP PO SCH ×4 (00:06→18:14)
[2018-01-20] MEDS: OXYCODONE HCL IR 5 MG TABLET PO PRN ×2 (02:04→06:22)
[2018-01-20] MEDS: VANCOMYCIN HCL 1,250 MG in DEXTROSE 5%-WATER 250 ML IV SCH ×2 (06:23→18:13)
[2018-01-20] MEDS: PRAMIPEXOLE DI-HCL 0.5 MG TABLET PO SCH ×2 (06:23→18:11)
[2018-01-20] MEDS: LANSOPRAZOLE 30 MG TAB.RAP.DR PO SCH (06:23)
[2018-01-20 07:10] LABS: ABSOLUTE EOSINOPHILS # (AUTO) 0.2 10^3/uL (0.0-0.6); ABSOLUTE LYMPHOCYTES (AUTO) 1.1 10^3/uL (0.5-4.7); ABSOLUTE MONOCYTES (AUTO) 0.3 10^3/uL (0.1-1.4); ABSOLUTE NEUT (AUTO) 1.6 10^3/uL (1.7-8.2); BASOPHILS % (AUTO) 0.7 % (0-2); EOSINOPHILS % (AUTO) 5.4 % (0-6); HEMATOCRIT 35.2 % (37.9-51.0); HEMOGLOBIN 12.1 g/dL (13.5-17.0); LYMPHOCYTES % (AUTO) 33.7 % (13-45); MEAN CORPUSCULAR HEMOGLOBIN 31.2 pg (27.0-33.4); MEAN CORPUSCULAR HGB CONC 34.3 g/dL (32.0-36.0); MEAN CORPUSCULAR VOLUME 91 fl (80-97); MONOCYTES % (AUTO) 9.9 % (3-13); RED BLOOD COUNT 3.86 10^6/uL (4.35-5.55); RED CELL DISTRIBUTION WIDTH 19.3 % (11.5-14.0); SEGMENTED NEUTROPHILS % (AUTO) 50.3 % (42-78); TOTAL CELLS COUNTED % (AUTO) 100 %; WHITE BLOOD COUNT 3.2 10^3/uL (4.0-10.5)
[2018-01-20 07:33] LABS: PLATELET COUNT 53 10^3/uL (150-450)
--- NOTE | 2018-01-20 10:59 | PDOC PROGRESS REPORT ---
Subjective Progress Note for:: 01/19/18 Subjective:: The patient is a 72-year-old male with past medical history of hypertension, end -stage liver disease, recent variceal rupture (1 year ago; correction from H&P) , hepatitis C, and chronic back pain who was admitted on 01/16/18 for dehydration , rhabdomyolysis, and frequent falls. He was also incidentally found to have a urinary tract infection. He is seen on morning rounds. He is found resting comfortably in the recliner on room air. He reports continued chronic back and leg pain; he is agreeable to adjustments to his chronic pain medications in an attempt to reduce sedation/ weakness. He is agreeable to short-term rehabilitation upon discharge. His ultimate goal is to return home with home health services. He denies fever, chills, headache, dizziness, chest pain, palpitations, dyspnea , orthopnea, abdominal pain, nausea vomiting and diarrhea. He does report some indigestion/GI upset following his medications this morning and requests pepto if available. He no other questions or concerns today. Reason For Visit: RHABDOMYOLYSIS,DEHYDRATION,FREQUENT FALLS Physical Exam Vital Signs: Temp Pulse Resp BP Pulse Ox 98.2 F 78 16 105/68 94 01/19/18 11:28 01/19/18 11:28 01/19/18 11:28 01/19/18 11:28 01/19/18 11:28 Intake & Output 01/18/18 01/19/18 01/20/18 06:59 06:59 06:59 Intake Total 1180 596 250 Output Total 770 1650 Balance 410 -1054 250 Weight 80.2 kg 81 kg General appearance: PRESENT: no acute distress, cooperative, well-developed, well-nourished, other - Overweight Head exam: PRESENT: atraumatic, normocephalic Eye exam: PRESENT: conjunctiva pink, EOMI, PERRLA. ABSENT: scleral icterus Ear exam: PRESENT: normal external ear exam Mouth exam: PRESENT: moist, tongue midline Neck exam: ABSENT: carotid bruit, JVD, lymphadenopathy, thyromegaly Respiratory exam: PRESENT: clear to auscultation onel, symmetrical, unlabored. ABSENT: rales, rhonchi, wheezes Cardiovascular exam: PRESENT: RRR, +S1, +S2. ABSENT: diastolic murmur, rubs, systolic murmur Pulses: PRESENT: normal dorsalis pedis pul Vascular exam: PRESENT: normal capillary refill GI/Abdominal exam: PRESENT: normal bowel sounds, soft. ABSENT: distended, guarding, mass, organolmegaly, rebound, tenderness Rectal exam: PRESENT: deferred Extremities exam: PRESENT: full ROM. ABSENT: calf tenderness, clubbing, pedal edema Neurological exam: PRESENT: alert, awake, oriented to person, oriented to place , oriented to time, CN II-XII grossly intact. ABSENT: oriented to situation - Somewhat unclear on situation; the patient is able to describe precipitating events but states he needs to go home to do some house work and laundry prior to d/c to SNF, motor sensory deficit Psychiatric exam: PRESENT: appropriate affect, normal mood. ABSENT: homicidal ideation, suicidal ideation Skin exam: PRESENT: dry, intact, warm. ABSENT: cyanosis, rash Results Laboratory Results: 01/19/18 06:10 01/19/18 06:10 01/19/18 01/19/18 01/19/18 06:10 06:10 06:10 WBC 2.7 L RBC 3.86 L Hgb 12.1 L Hct 35.4 L MCV 92 MCH 31.3 MCHC 34.1 RDW 19.4 H Plt Count 51 L Sodium 142.9 Potassium 3.8 Chloride 108 H Carbon Dioxide 25 Anion Gap 10 BUN 18 Creatinine 0.55 Est GFR ( Amer) > 60 Est GFR (Non-Af Amer) > 60 Glucose 78 Calcium 9.1 Ammonia 29.6 01/16/18 01/16/18 01/17/18 12:22 12:22 05:20 Creatine Kinase 1511 H 783 H Troponin I 0.028 Impressions: Head CT 01/16/18 04:36 IMPRESSION: No acute findings. Lumbar Spine CT 01/16/18 04:36 IMPRESSION: 1. Moderate L4 anterior vertebral compression deformity with vertebroplasty. 2. A 2.7 cm diameter abdominal aortic aneurysm. Follow-up recommended every five years. Assessment & Plan - Diagnosis (1) Rhabdomyolysis Qualifiers: Rhabdomyolysis type: non-traumatic Qualified Code(s): M62.82 - Rhabdomyolysis Is this a current diagnosis for this admission?: Yes Plan: Improved; CK trending down; 2772 --> 161 The patient has had multiple falls over the last week with a fall resulting in him having spent the night on the floor and calling EMS for assistance in the morning. He is admitted to the medical floor. He is placed on IV maintenance fluids. We will encourage p.o. fluid intake. We will continue to monitor. (2) Urinary tract infection Qualifiers: Urinary tract infection type: acute cystitis Hematuria presence: without hematuria Qualified Code(s): N30.00 - Acute cystitis without hematuria Is this a current diagnosis for this admission?: Yes Plan: Urinalysis reveals a UTI. One set of blood cultures are positive for gram positive cocci in clusters. Urine culture demonstrated mixed skin harvinder with possible pathogen recommending we collection. Repeat urine culture has no growth to date. The patient is empirically placed on IV Rocephin. IV vancomycin added for positive blood cultures. Day #3 of abx therapy. Will continue to adjust antibiotics as cultures and sensitivities become available. (3) Hyperammonemia Is this a current diagnosis for this admission?: Yes Plan: Resolved; 55.9--> 92.3--> 29.6 Secondary to end-stage liver disease and admitted noncompliance with lactulose therapy as the patient reports nausea, vomiting, and loose stools. The patient is alert and oriented; does have mild confusion w/ upper-level thinking and reports progressively worsening generalized weakness resulting in multiple falls. Scleral icterus and jaundice appear improved today. Continue lactulose and Xifaxan 550 mg twice daily. Antiemetics available as needed. (4) End stage liver disease Is this a current diagnosis for this admission?: Yes Plan: Meld score is 15; 6% [address] the patient on lactulose and rifaximin therapy. We will continue his outpatient therapy of nadolol, spironolactone. Will hold lasix briefly while addressing dehydration. Continue PPI. (5) Dehydration Is this a current diagnosis for this admission?: Yes Plan: Continue maintenance IV fluids. Will hold home dose lasix. Encourage p.o. fluid intake. We will monitor electrolytes with daily chemistries. (6) Fall Qualifiers: Encounter type: initial encounter Qualified Code(s): W19.XXXA - Unspecified fall, initial encounter Is this a current diagnosis for this admission?: Yes Plan: Multifactorial secondary to age, chronic back pain, chronic opiate dependence, and hyperammonemia. Fall precautions are in place. We will ask PT/OT to evaluate the patient. Likely will benefit from residential for, at minimum, short-term rehabilitation. Have asked discharge planning to assist with placement needs. (7) Anemia Qualifiers: Anemia type: unspecified type Qualified Code(s): D64.9 - Anemia, unspecified Is this a current diagnosis for this admission?: Yes Plan: Improved today; Hgb 13.5--> 11.3--> 12.1 Likely secondary to hemodilution as WBCs and PLTs are also down. No evidence of active bleeding. Will observe closely for s/sx of GI bleed given patient's history or previous variceal rupture. Continue PPI. Continue multivitamin with iron. (8) Chronic back pain Qualifiers: Back pain location: low back pain Is this a current diagnosis for this admission?: Yes Plan: Patient is prescribed oxcycodone/apap 10-325 tid and zanaflex 2 mg qHS for chronic musculoskeletal pain. The patient's sister is concerned that he may be over-sedated; she has noted a decline in his function after increase of oxycodone dose. Patient is agreeable to reducing medications as necessary. Will trial change to oxycodone 5 mg q6 hours (same daily dose). Perhaps the reduced dosing will reduce sedation while increased frequency provide adequate pain control. Will also provide lidoderm patch. Encourage nonpharmacological interventions such as ice, heat, and increased mobility. - Time Time Spent with patient: 15-24 minutes Anticipated discharge: SNF - Short-term rehabilitation Within: when bed available
[2018-01-20] MEDS: BISMUTH SUBSALICYLATE 262 MG TAB.CHEW PO PRN (12:05)
[2018-01-20] MEDS: NADOLOL 40 MG TABLET PO SCH (12:06)
[2018-01-20] MEDS: RIFAXIMIN 550 MG TABLET PO SCH ×2 (12:06→18:11)
[2018-01-20] MEDS: SPIRONOLACTONE 25 MG TABLET PO SCH (12:07)
[2018-01-20] MEDS: TAMSULOSIN HCL 0.4 MG CAP.SR.24H PO SCH (12:07)
[2018-01-20] MEDS: SERTRALINE HCL 50 MG TABLET PO SCH (12:07)
[2018-01-20] MEDS: CEFTRIAXONE SODIUM 1,000 MG in DEXTROSE 5%-WATER 50 ML IV SCH (12:08)
[2018-01-20] MEDS: OXYCODONE-ACETAMINOPHEN 5-325 MG TABLET PO PRN ×2 (12:08→18:12)
[2018-01-20] MEDS: NYSTATIN TOPICAL POWDER 15 GM TP SCH ×2 (12:09→18:14)
[2018-01-20] MEDS: LIDOCAINE 5% (700 MG) TRANSDERMAL ADH..PATCH TP SCH (12:09)
[2018-01-20] MEDS: MULTIVITAMINS W-IRON TABLET, CHEWABLE PO SCH (12:11)
--- NOTE | 2018-01-20 12:28 | PDOC PROGRESS REPORT ---
Subjective Progress Note for:: 01/20/18 Subjective:: The patient is a 72-year-old male with past medical history of hypertension, end -stage liver disease, recent variceal rupture (1 year ago; correction from H&P) , hepatitis C, and chronic back pain who was admitted on 01/16/18 for dehydration , rhabdomyolysis, and frequent falls. He was also incidentally found to have a urinary tract infection. He is seen on morning rounds. He is found resting comfortably in the bed on room air. He reports continued chronic back and leg pain; he is very frustrated by his medication changes and agitated that we did not discuss these changes yesterday (patient can't recall long convrsation had about trial of dose reduction but w/ increased frequency). He asks to have his home dosing regiment resumed. He is agreeable to short-term rehabilitation upon discharge. His ultimate goal is to return home with home health services. However, during multiple points during the conversation, he becomes agitated by not allowing him to be discharged to home prior to going to rehab. He denies fever, chills, headache, dizziness, chest pain, palpitations, dyspnea , orthopnea, abdominal pain, nausea vomiting and diarrhea. He no other questions or concerns today. Per nursing, the patient has been intermittently refusing lactulose. Reason For Visit: RHABDOMYOLYSIS,DEHYDRATION,FREQUENT FALLS Physical Exam Vital Signs: Temp Pulse Resp BP Pulse Ox 97.9 F 78 20 139/72 H 94 01/20/18 07:15 01/20/18 07:15 01/20/18 07:15 01/20/18 07:15 01/20/18 07:15 Intake & Output 01/19/18 01/20/18 01/21/18 06:59 06:59 06:59 Intake Total 596 3020 Output Total 1650 1050 Balance -1054 1970 Weight 81 kg 79.1 kg General appearance: PRESENT: no acute distress, cooperative, well-developed, well-nourished, other - Overweight Head exam: PRESENT: atraumatic, normocephalic Eye exam: PRESENT: conjunctiva pink, EOMI, PERRLA. ABSENT: scleral icterus Ear exam: PRESENT: normal external ear exam Mouth exam: PRESENT: moist, tongue midline Neck exam: ABSENT: carotid bruit, JVD, lymphadenopathy, thyromegaly Respiratory exam: PRESENT: clear to auscultation onel, symmetrical, unlabored. ABSENT: rales, rhonchi, wheezes Cardiovascular exam: PRESENT: RRR, +S1, +S2. ABSENT: diastolic murmur, rubs, systolic murmur Pulses: PRESENT: normal dorsalis pedis pul Vascular exam: PRESENT: normal capillary refill GI/Abdominal exam: PRESENT: normal bowel sounds, soft. ABSENT: distended, guarding, mass, organolmegaly, rebound, tenderness Rectal exam: PRESENT: deferred Extremities exam: PRESENT: full ROM. ABSENT: calf tenderness, clubbing, pedal edema Neurological exam: PRESENT: alert, awake, oriented to person, oriented to place , oriented to time, oriented to situation, CN II-XII grossly intact, other - A& Ox4; difficuly with maintaining train of thought, slight confusion/ forgetfulness. Voice and hand tremor.. ABSENT: motor sensory deficit Psychiatric exam: PRESENT: agitated, anxious, appropriate affect. ABSENT: homicidal ideation, suicidal ideation Skin exam: PRESENT: dry, intact, warm. ABSENT: cyanosis, rash Results Laboratory Results: 01/20/18 06:05 01/19/18 06:10 01/20/18 06:05 WBC 3.2 L RBC 3.86 L Hgb 12.1 L Hct 35.2 L MCV 91 MCH 31.2 MCHC 34.3 RDW 19.3 H Plt Count 53 L Seg Neutrophils % 50.3 Lymphocytes % 33.7 Monocytes % 9.9 Eosinophils % 5.4 Basophils % 0.7 Absolute Neutrophils 1.6 L Absolute Lymphocytes 1.1 Absolute Monocytes 0.3 Absolute Eosinophils 0.2 Absolute Basophils 0.0 01/16/18 01/16/18 01/17/18 12:22 12:22 05:20 Creatine Kinase 1511 H 783 H Troponin I 0.028 01/19/18 14:58 Creatine Kinase 161 Troponin I Impressions: Head CT 01/16/18 04:36 IMPRESSION: No acute findings. Lumbar Spine CT 01/16/18 04:36 IMPRESSION: 1. Moderate L4 anterior vertebral compression deformity with vertebroplasty. 2. A 2.7 cm diameter abdominal aortic aneurysm. Follow-up recommended every five years. Assessment & Plan - Diagnosis (1) Rhabdomyolysis Qualifiers: Rhabdomyolysis type: non-traumatic Qualified Code(s): M62.82 - Rhabdomyolysis Is this a current diagnosis for this admission?: Yes Plan: Resolved. The patient has had multiple falls over the last week with a fall resulting in him having spent the night on the floor and calling EMS for assistance in the morning. He is admitted to the medical floor. He was rehydrated with IVF; will discontinue today. We will encourage p.o. fluid intake. We will continue to monitor. (2) Urinary tract infection Qualifiers: Urinary tract infection type: acute cystitis Hematuria presence: without hematuria Qualified Code(s): N30.00 - Acute cystitis without hematuria Is this a current diagnosis for this admission?: Yes Plan: Urinalysis reveals a UTI. One set of blood cultures are positive for gram positive cocci in clusters. Urine culture demonstrated mixed skin harvinder with possible pathogen recommending we collection. Repeat urine culture: Gram-negative rods. The patient is empirically placed on IV Rocephin. IV vancomycin added for positive blood cultures. Day #4 of abx therapy. Will continue to adjust antibiotics as cultures and sensitivities become available. (3) Hyperammonemia Is this a current diagnosis for this admission?: Yes Plan: Resolved; 55.9--> 92.3--> 29.6 Secondary to end-stage liver disease and admitted noncompliance with lactulose therapy as the patient reports nausea, vomiting, and loose stools. The patient is alert and oriented; does have mild confusion w/ upper-level thinking and reports progressively worsening generalized weakness resulting in multiple falls. Scleral icterus and jaundice have resolved. Continue lactulose and Xifaxan 550 mg twice daily. Encourage compliance with Lactulose. Antiemetics available as needed. (4) End stage liver disease Is this a current diagnosis for this admission?: Yes Plan: Meld score is 15; 6% [address] the patient on lactulose and rifaximin therapy. We will continue his outpatient therapy of nadolol, spironolactone. Will hold lasix briefly while addressing dehydration; if patient demonstrates adequate p.ol intake, will resume lasix tomorrow. Continue PPI. (5) Dehydration Is this a current diagnosis for this admission?: Yes Plan: Resolved. Holding lasix; if patient demonstrates adequate p.ol intake, will resume lasix tomorrow. Encourage p.o. fluid intake. We will monitor electrolytes with daily chemistries. (6) Fall Qualifiers: Encounter type: initial encounter Qualified Code(s): W19.XXXA - Unspecified fall, initial encounter Is this a current diagnosis for this admission?: Yes Plan: Multifactorial secondary to age, chronic back pain, chronic opiate dependence, and hyperammonemia. Fall precautions are in place. We will ask PT/OT to evaluate the patient. Likely will benefit from fci for, at minimum, short-term rehabilitation. Have asked discharge planning to assist with placement needs. (7) Anemia Qualifiers: Anemia type: unspecified type Qualified Code(s): D64.9 - Anemia, unspecified Is this a current diagnosis for this admission?: Yes Plan: Gradual improvement; Hgb 13.5--> 11.3--> 12.1 Likely secondary to hemodilution as WBCs and PLTs are also down. No evidence of active bleeding. Will observe closely for s/sx of GI bleed given patient's history or previous variceal rupture. Continue PPI. Continue multivitamin with iron. (8) Chronic back pain Qualifiers: Back pain location: low back pain Is this a current diagnosis for this admission?: Yes Plan: Patient is prescribed oxcycodone/apap 10-325 tid and zanaflex 2 mg qHS for chronic musculoskeletal pain. The patient's sister is concerned that he may be over-sedated; she has noted a decline in his function after increase of oxycodone dose. Patient did not tolerate weaning of medications; will resume his home dosing and schedule. Will also provide lidoderm patch. Encourage nonpharmacological interventions such as ice, heat, and increased mobility. (9) Bacteremia Is this a current diagnosis for this admission?: Yes Plan: One set of blood cultures (2 of 4 bottles) is positive for growth. 1. Staph haemolyticus 2. Gram positive cocci Urine culture: Gram negative rods Discussed with Dr. Vogel. Pt is afebrile and without abdominal tenderness; no indications for work up of ascietes at this time. Will continue current antibiotic regiment of ceftriaxone and vancomycin. Currently day #4 of therapy. Will adjust as identification and sensitivities become available. - Time Time Spent with patient: 15-24 minutes Medications reviewed and adjusted accordingly: Yes Anticipated discharge: Acute Rehab Within: within 24 hours - Pending culture results. - Inpatient Certification Based on my medical assessment, after consideration of the patient's comorbidities, presenting symptoms, or acuity I expect that the services needed warrant INPATIENT care.: Yes I certify that my determination is in accordance with my understanding of Medicare's requirements for reasonable and necessary INPATIENT services [42 CFR 412.3e].: Yes Medical Necessity: Need for IV Antibiotics
[2018-01-20] MEDS: TIZANIDINE HCL 4 MG TABLET PO SCH (21:16)
[2018-01-21] MEDS: OXYCODONE-ACETAMINOPHEN 5-325 MG TABLET PO PRN ×3 (00:25→12:27)
[2018-01-21] MEDS: LACTULOSE SYRUP 20 GM/30 ML UDCUP PO SCH ×3 (00:26→11:08)
[2018-01-21] MEDS: PRAMIPEXOLE DI-HCL 0.5 MG TABLET PO SCH (05:07)
[2018-01-21] MEDS: LANSOPRAZOLE 30 MG TAB.RAP.DR PO SCH (05:07)
[2018-01-21] MEDS: VANCOMYCIN HCL 1,250 MG in DEXTROSE 5%-WATER 250 ML IV SCH (05:08)
[2018-01-21 06:49] LABS: HEMATOCRIT 35.9 % (37.9-51.0); HEMOGLOBIN 12.3 g/dL (13.5-17.0); MEAN CORPUSCULAR HEMOGLOBIN 31.6 pg (27.0-33.4); MEAN CORPUSCULAR HGB CONC 34.2 g/dL (32.0-36.0); MEAN CORPUSCULAR VOLUME 92 fl (80-97); RED BLOOD COUNT 3.88 10^6/uL (4.35-5.55); RED CELL DISTRIBUTION WIDTH 18.9 % (11.5-14.0); WHITE BLOOD COUNT 4.5 10^3/uL (4.0-10.5)
[2018-01-21 06:59] LABS: ANION GAP 8 (5-19); BLOOD UREA NITROGEN 20 mg/dL (7-20); CALCIUM 8.9 mg/dL (8.4-10.2); CARBON DIOXIDE 25 mmol/L (22-30); CHLORIDE 109 mmol/L (98-107); GLUCOSE 85 mg/dL (75-110); POTASSIUM 3.9 mmol/L (3.6-5.0); SODIUM 142.3 mmol/L (137-145)
[2018-01-21 07:28] LABS: PLATELET COUNT 54 10^3/uL (150-450)
[2018-01-21] MEDS: SPIRONOLACTONE 25 MG TABLET PO SCH (10:44)
[2018-01-21] MEDS: MULTIVITAMINS W-IRON TABLET, CHEWABLE PO SCH (10:44)
[2018-01-21] MEDS: TAMSULOSIN HCL 0.4 MG CAP.SR.24H PO SCH (10:45)
[2018-01-21] MEDS: NADOLOL 40 MG TABLET PO SCH (10:45)
[2018-01-21] MEDS: RIFAXIMIN 550 MG TABLET PO SCH (10:45)
[2018-01-21] MEDS: SERTRALINE HCL 50 MG TABLET PO SCH (10:45)
[2018-01-21] MEDS: NYSTATIN TOPICAL POWDER 15 GM TP SCH (10:48)
[2018-01-21] MEDS: LIDOCAINE 5% (700 MG) TRANSDERMAL ADH..PATCH TP SCH (10:49)
[2018-01-21] MEDS: CEFTRIAXONE SODIUM 1,000 MG in DEXTROSE 5%-WATER 50 ML IV SCH (11:08)
--- NOTE | 2018-01-21 11:08 | PDOC TRANSFER SUMMARY ---
General - Admit/Disc Date/PCP Admission Date/Primary Care Provider: 01/16/18 08:53 SONIAARON MENARD Discharge Date: 01/21/18 - Discharge Diagnosis (1) Rhabdomyolysis Is this a current diagnosis for this admission?: Yes Summary: Resolved. The patient has had multiple falls over the last week with a fall resulting in him having spent the night on the floor and calling EMS for assistance in the morning. He was admitted to the medical floor and provided IV fluids. Oral fluids were encouraged. Creatinine kinase has returned to normal. (2) Urinary tract infection Is this a current diagnosis for this admission?: Yes Summary: Urinalysis reveals a UTI. One set of blood cultures are positive for Staphylococcus haemolyticus and finegolida species; both determined to likely be contaminant. First Urine culture demonstrated mixed skin harvinder; repeat blood culture shows gram positive rods with colony count less than 3,000. The patient was empirically placed on IV Rocephin x 4 days and IV vancomycin x 3 days. Patient has had a normal WBC count and has remained asypmtomatic and afebrile throughout admission. No further antibiotic treatment is recommended. (3) Hyperammonemia Is this a current diagnosis for this admission?: Yes Summary: Resolved; 55.9--> 92.3--> 29.6 Secondary to end-stage liver disease and admitted noncompliance with lactulose therapy secondary to side effects. The patient is alert and oriented; does have mild confusion w/ upper-level thinking and reports progressively worsening generalized weakness resulting in multiple falls. Scleral icterus and jaundice have resolved. The patient's lactulose was resumed at 20 mg q6 hours and titrated down to q8 hours. Patient tolerated well and has not required antiemetics. He was also placed on Xifaxan 550 mg twice daily. (4) End stage liver disease Is this a current diagnosis for this admission?: Yes Summary: Meld score is 15; 6% 3 month mortality. Lactulose and rifaximin therapy were initiated. His outpatient nadolol and spironolactone were continued. Lasix held briefly while addressing dehydration/ rhabdomyolysis. (5) Dehydration Is this a current diagnosis for this admission?: Yes (6) Fall Is this a current diagnosis for this admission?: Yes Summary: Patient reports frequent falls at home. He was assessed by PT/OT who recommend discharge to SNF for short term rehabilitation. (7) Anemia Is this a current diagnosis for this admission?: Yes (8) Chronic back pain Is this a current diagnosis for this admission?: Yes (9) Bacteremia Is this a current diagnosis for this admission?: Yes Summary: Determined to be a contaminant; pt did receive IV Rocephin and Vancomycin. - Additional Information Resuscitation Status: Full Code Discharge Diet: Regular Discharge Activity: Activity As Tolerated, Balance Activity w/Rest, Slowly Increase Activity Prescriptions: Lactulose [Cephulac Syrup 20 gm/30 ml Udcup] 20 gm PO Q8 #90 udc Lidocaine [Lidoderm 5% (700 mg) Transdermal Patch] 1 patch TP DAILY #30 adh..patch Rifaximin [Xifaxan 550 mg Tablet] 550 mg PO BID #60 tablet Home Medications: Furosemide [Lasix 20 mg Tablet] 20 mg PO DAILY 01/16/18 Nadolol [Corgard 40 mg Tablet] 40 mg PO DAILY 01/16/18 Oxycodone HCl/Acetaminophen [Percocet 10-325 mg Tablet] 1 tab PO Q8HP PRN Pantoprazole Sodium [Protonix] 40 mg PO DAILY 01/16/18 Pramipexole Di-HCl [Mirapex 0.5 mg Tablet] 0.5 mg PO Q12 01/16/18 Sertraline HCl [Zoloft] 100 mg PO DAILY 01/16/18 Spironolactone [Aldactone] 50 mg PO DAILY 01/16/18 Tamsulosin HCl [Flomax 0.4 mg Cap.sr] 0.4 mg PO DAILY 01/16/18 Tizanidine HCl [Zanaflex 4 mg Tablet] 2 mg PO QHS 01/16/18 Lactulose [Cephulac Syrup 20 gm/30 ml Udcup] 20 gm PO Q8 #90 udc 01/21/18 Lidocaine [Lidoderm 5% (700 mg) Transdermal Patch] 1 patch TP DAILY #30 adh..patch 01/21/18 Pramipexole Di-HCl [Mirapex 0.5 mg Tablet] 0.5 mg PO Q12A tablet 01/21/18 Rifaximin [Xifaxan 550 mg Tablet] 550 mg PO BID #60 tablet 01/21/18 History of Present Illness Admission Date/PCP: 01/16/18 08:53 ARON FERGUSON History of Present Illness: RADHA YEBOAH JR is a 72 year old male with a past medical history of hypertension, end stage liver disease, recent variceal rupture (approximately 1 year ago), hepatitis C s/p treatment, and chronic back pain who presented to the emergency department today for frequent falls. The patient reports that he fell 2 nights ago due to generalized weakness but was able to get himself up off the floor. He states that he fell again last night when his recliner collapsed from beneath him and he was unable to get up on his own; spending the night on the floor. He denies hitting his head, loss of consciousness, dizziness, chest pain, palpitations, dyspnea or orthopnea leading up to his fall or currently. His only complaint at present is his chronic lower back pain which has been aggravated from his falls. Evaluation in the emergency department reveals dehydration with a BUN of 32, sodium 145.p and rhabdomyolysis with an elevated creatinine kinase of 2772. He is also found to have a urinary tract infection by urinalysis. He is referred to the hospital service for admission and management. Physical Exam Vital Signs: Temp Pulse Resp BP Pulse Ox 98.7 F 85 20 126/91 H 96 01/21/18 08:47 01/21/18 08:47 01/21/18 08:47 01/21/18 08:47 01/21/18 08:47 Intake & Output 01/20/18 01/21/18 01/22/18 06:59 06:59 06:59 Intake Total 3020 2098 Output Total 1050 450 Balance 1970 1648 Weight 79.1 kg 75.2 kg General appearance: PRESENT: no acute distress, cooperative, well-developed, well-nourished, other - Overweight Head exam: PRESENT: atraumatic, normocephalic Eye exam: PRESENT: conjunctiva pink, EOMI, PERRLA. ABSENT: scleral icterus Ear exam: PRESENT: normal external ear exam Mouth exam: PRESENT: moist, tongue midline Neck exam: ABSENT: carotid bruit, JVD, lymphadenopathy, thyromegaly Respiratory exam: PRESENT: clear to auscultation onel, symmetrical, unlabored. ABSENT: rales, rhonchi, wheezes Cardiovascular exam: PRESENT: RRR, +S1, +S2. ABSENT: diastolic murmur, rubs, systolic murmur Pulses: PRESENT: normal dorsalis pedis pul Vascular exam: PRESENT: normal capillary refill GI/Abdominal exam: PRESENT: normal bowel sounds, soft. ABSENT: distended, guarding, mass, organolmegaly, rebound, tenderness Rectal exam: PRESENT: deferred Extremities exam: PRESENT: full ROM. ABSENT: calf tenderness, clubbing, pedal edema Neurological exam: PRESENT: alert, awake, oriented to person, oriented to place , oriented to time, oriented to situation, CN II-XII grossly intact, other - Forgetful. ABSENT: motor sensory deficit Psychiatric exam: PRESENT: appropriate affect, normal mood. ABSENT: homicidal ideation, suicidal ideation Skin exam: PRESENT: dry, intact, warm. ABSENT: cyanosis, rash Results Laboratory Results: 01/21/18 05:50 01/21/18 05:50 01/21/18 01/21/18 05:50 05:50 WBC 4.5 RBC 3.88 L Hgb 12.3 L Hct 35.9 L MCV 92 MCH 31.6 MCHC 34.2 RDW 18.9 H Plt Count 54 L Sodium 142.3 Potassium 3.9 Chloride 109 H Carbon Dioxide 25 Anion Gap 8 BUN 20 Creatinine 0.65 Est GFR ( Amer) > 60 Est GFR (Non-Af Amer) > 60 Glucose 85 Calcium 8.9 01/16/18 11:40 Blood Blood Culture - Final Staphylococcus Haemolyticus Finegoldia Species 01/16/18 01/16/18 01/17/18 12:22 12:22 05:20 Creatine Kinase 1511 H 783 H Troponin I 0.028 01/19/18 14:58 Creatine Kinase 161 Troponin I Impressions: Head CT 01/16/18 04:36 IMPRESSION: No acute findings. Lumbar Spine CT 01/16/18 04:36 IMPRESSION: 1. Moderate L4 anterior vertebral compression deformity with vertebroplasty. 2. A 2.7 cm diameter abdominal aortic aneurysm. Follow-up recommended every five years. Transfer Plan - Disposition Transfer Plan: Discharge to Detention Facility for short term rehabilitation. - Time Spent with Patient Time spent with patient: Less than 30 Minutes Qualifiers - * PATIENT BEING DISCHARGED WITH ANY OF THE FOLLOWING DIAGNOSIS: No Plan Discharge Plan: At time of discharge, the patient is in stable condition, maintaining oxygen saturations on room air, ambulatory with minimal assistance, and tolerating a regular diet. He is discharged to long-term facility for shot-term rehabilitation. Ultimate goal is to return to home where he lives independently. He is provided prescriptions for Lactulose, Lidoderm patches, and Rifaximin. He is encouraged to follow up with his primary care provider within 1 week of discharge from SNF.
[2018-01-21 14:06] VITALS: BP 122/58
== END 2018-01-21 15:52 | DRG 558 ==
LOC: ER 04:29 → EH 08:53 → UNDOADMIN 08:53 → 4S 14:33
PROVIDERS: ADMIT Family Medicine; ATTEND Family Medicine
PROC: 3E0F73Z Introduction of Anti-inflammatory into Respiratory Tract, Via Natural or Artificial Opening (ICD-10-PCS; principal; 2018-01-17)
DX: M62.82 Rhabdomyolysis (principal); E72.20 Disorder of urea cycle metabolism, unspecified; N30.00 Acute cystitis without hematuria; E86.0 Dehydration; Z51.5 Encounter for palliative care; B95.7 Other staphylococcus as the cause of diseases classified elsewhere; K72.90 Hepatic failure, unspecified without coma; D64.9 Anemia, unspecified; G89.29 Other chronic pain; I10 Essential (primary) hypertension; I71.4 Abdominal aortic aneurysm, without rupture; Z60.2 Problems related to living alone; K21.9 Gastro-esophageal reflux disease without esophagitis; W07.XXXA Fall from chair, initial encounter; M19.90 Unspecified osteoarthritis, unspecified site; F32.9 Major depressive disorder, single episode, unspecified; F41.9 Anxiety disorder, unspecified; M54.5 Low back pain; G25.81 Restless legs syndrome; Z91.19 Patient's noncompliance with other medical treatment and regimen; Z86.19 Personal history of other infectious and parasitic diseases; Z91.81 History of falling; Z90.49 Acquired absence of other specified parts of digestive tract; Z79.891 Long term (current) use of opiate analgesic; Z79.899 Other long term (current) drug therapy; Z87.891 Personal history of nicotine dependence; Z82.49 Family history of ischemic heart disease and other diseases of the circulatory system
CPT/HCPCS: 36415; 70450; 72131; 80048; 80053; 80202; 81001; 82140; 82550; 84484; 85025; 85027; 85610; 85730; 87040; 87077; 87086; 87088; 87186; 93005; 93010; 96361; 96374; 99285; A9270-GY; G8978-GP; G8979-GP; G8987-GO; G8988-GO; J0696; J1644; J3010; J3370; J3490; J7030; J7060

== ENCOUNTER → 2018-02-27 | Outpatient (CLI) | payer MEDICARE ==
[2018-02-27 15:45] LABS: INTERNATIONAL RATION (INR) 1.34; PROTHROMBIN TIME 17.3 SEC (11.4-15.4)
[2018-02-27 15:46] LABS: PARTIAL THROMBOPLASTIN TIME 37.5 SEC (23.5-35.8)
== END ==
LOC: OD 14:55
PROVIDERS: ATTEND Anesthesiology Pain Medicine
DX: M51.16 Intervertebral disc disorders with radiculopathy, lumbar region (principal)
CPT/HCPCS: 36415; 85610; 85730

== ENCOUNTER → 2018-03-13 | Outpatient (CLI) | payer MEDICARE ==
[2018-03-13 16:49] LABS: INTERNATIONAL RATION (INR) 1.27; PROTHROMBIN TIME 16.5 SEC (11.4-15.4)
[2018-03-13 16:50] LABS: PARTIAL THROMBOPLASTIN TIME 38.5 SEC (23.5-35.8)
== END ==
LOC: OD 15:17
PROVIDERS: ATTEND Anesthesiology Pain Medicine
DX: K74.60 Unspecified cirrhosis of liver (principal)
CPT/HCPCS: 36415; 85610; 85730

== ENCOUNTER → 2018-03-18 | Outpatient (CLI) | payer MEDICARE ==
[2018-03-18 17:21] LABS: INTERNATIONAL RATION (INR) 1.31
[2018-03-18 17:22] LABS: PARTIAL THROMBOPLASTIN TIME 37.9 SEC (23.5-35.8)
== END ==
LOC: OD 08:45
PROVIDERS: ATTEND Anesthesiology Pain Medicine
DX: K74.60 Unspecified cirrhosis of liver (principal)
CPT/HCPCS: 36415; 85610; 85730

== ENCOUNTER 2018-04-06 13:55 | Emergency (ER) | payer MEDICARE ==
[2018-04-06] MEDS ORDERED: NORMAL SALINE 500 ML IV ONE (14:35)
--- NOTE | 2018-04-06 14:39 | ER Document Report ---
ED General - General Chief Complaint: Back Injury Stated Complaint: FALL/BODY PAIN Time Seen by Provider: 04/06/18 14:24 Mode of Arrival: Medic Information source: Patient Notes: 72-year-old male brought to the emergency department by EMS status post fall. Patient fell around 6:30 AM in the shower. He did not hit his life alert button until around 1230. EMS found patient was found laying in the shower covered in feces. He states that he's been falling over the last month. Patient states that he is having right hip pain. Patient is able to flex and extend at the hip. Patient denies chest pain, shortness of breath, abdominal pain, vision changes, speech changes, numbness, tingling, or weakness. TRAVEL OUTSIDE OF THE [place] IN LAST 30 DAYS: No - HPI Onset: This morning Onset/Duration: Sudden Quality of pain: Achy Severity: Mild Associated symptoms: None Exacerbated by: Denies Relieved by: Denies Similar symptoms previously: No Recently seen / treated by doctor: No - Related Data Allergies/Adverse Reactions: No Known Allergies Allergy (Verified 01/26/17 20:24) Past Medical History - Social History Smoking Status: Current Every Day Smoker Family History: CAD, Hypertension - Past Medical History Cardiac Medical History: Reports: Hx Hypertension Denies: Hx Coronary Artery Disease, Hx Heart Attack Pulmonary Medical History: Reports: Hx Asthma - as a child Denies: Hx Bronchitis, Hx COPD, Hx Pneumonia Neurological Medical History: Denies: Hx Cerebrovascular Accident, Hx Seizures Renal/ Medical History: Denies: Hx Peritoneal Dialysis GI Medical History: Reports: Hx Cirrhosis, Hx Gastroesophageal Reflux Disease, Hx Hepatitis - HEP. C Musculoskeletal Medical History: Reports Hx Arthritis, Reports Hx Musculoskeletal Trauma Psychiatric Medical History: Reports: Hx Depression Infectious Medical History: Reports: Hx Hepatitis - HEP. C Past Surgical History: Reports: Hx Cholecystectomy, Hx Orthopedic Surgery - L-4 VERTEBROPLASTY 01/25/17, Other - L-4 VERTEBROPLASTY 01/25. Denies: Hx Pacemaker - Immunizations Hx Diphtheria, Pertussis, Tetanus Vaccination: Yes Review of Systems - Review of Systems -: Yes ROS unobtainable due to patient's medical condition Constitutional: No symptoms reported EENT: No symptoms reported Cardiovascular: No symptoms reported Respiratory: No symptoms reported Gastrointestinal: No symptoms reported Genitourinary: No symptoms reported Male Genitourinary: No symptoms reported Musculoskeletal: Joint pain Skin: No symptoms reported Hematologic/Lymphatic: No symptoms reported Neurological/Psychological: No symptoms reported -: Yes All other systems reviewed and negative Physical Exam - Vital signs Vitals: Pulse Ox 96 04/06/18 14:13 Interpretation: Normal - Notes Notes: PHYSICAL EXAMINATION: GENERAL: No acute distress. AOx3. HEAD: No signs of trauma EYES: Pupils equal round and reactive to light, extraocular movements intact, sclera anicteric, conjunctiva are normal. ENT: Nares patent, oropharynx clear without exudates. Moist mucous membranes. NECK: Normal range of motion, supple without lymphadenopathy LUNGS: Breath sounds clear to auscultation bilaterally and equal. No wheezes rales or rhonchi. HEART: Regular rate and rhythm without murmurs ABDOMEN: Soft, nontender, nondistended abdomen. No guarding, no rebound. No masses appreciated. Musculoskeletal: Normal range of motion, no pitting or edema. No cyanosis. NEUROLOGICAL: Cranial nerves grossly intact. Normal speech, normal gait. Normal sensory, motor exams PSYCH: Normal mood, normal affect. SKIN: Contusions to the left and right flank, left and right hips, abrasion to the right knee, Bridgette noted to the lower abdomen and genital region Course - Re-evaluation Re-evalutation: 04/06/18 17:42 I discussed with the patient why he was laying on the ground for 6 hours prior to calling EMS. Patient does not know. Possible LOC and head injury. CT head, cervical, chest, abd/pel done. No acute process seen. CT abd.pel shows ascites, varices, liver lesion. I discussed these results with the patient. He says these are not new. He has a history of hep C. Patient has no complaints in the ED. He is AOx3. His creatinine kinase was slightly elevated. Patient given 1500cc of normal saline in the ED. patient's brother is coming to pick him up and is going to stay with him. I instructed the patient to follow-up with his primary care physician this week, to continue taking his medications prescribed as directed, and to return to the emergency department for any worsening symptoms. The patient is agreeable with plan of care. - Vital Signs Vital signs: Temp Pulse Resp BP Pulse Ox 13 128/69 H 96 04/06/18 16:31 04/06/18 15:01 04/06/18 16:31 - Laboratory Result Diagrams: 04/06/18 15:07 04/06/18 15:07 Laboratory results interpreted by me: 04/06/18 04/06/18 04/06/18 15:07 15:07 15:51 RBC 4.13 L RDW 16.5 H Plt Count 71 L Chloride 108 H BUN 26 H Total Bilirubin 3.8 H Direct Bilirubin 1.3 H AST 92 H Alkaline Phosphatase 144 H Creatine Kinase 411 H Albumin 3.1 L Urine Ketones TRACE H Urine Urobilinogen 4.0 H - EKG Interpretation by Me Additional EKG results interpreted by me: 04/06/18 15:12 EKG: Ventricular rate 90, OR interval 140, QRS duration 100, QTC 524, sinus rhythm. Discharge - Discharge Clinical Impression: Abrasion Hip pain Qualifiers: Laterality: right Qualified Code(s): M25.551 - Pain in right hip Contusion Qualifiers: Encounter type: initial encounter Contusion area: lower back Qualified Code(s) : S30.0XXA - Contusion of lower back and pelvis, initial encounter Condition: Stable Disposition: HOME, SELF-CARE Instructions: Contusion ([facility]) Referrals: GINGER MCKAY MD [NO LOCAL MD] - Follow up as needed
[2018-04-06 15:22] LABS: ABSOLUTE EOSINOPHILS # (AUTO) 0.3 10^3/uL (0.0-0.6); ABSOLUTE LYMPHOCYTES (AUTO) 1.1 10^3/uL (0.5-4.7); ABSOLUTE MONOCYTES (AUTO) 0.6 10^3/uL (0.1-1.4); ABSOLUTE NEUT (AUTO) 4.2 10^3/uL (1.7-8.2); BASOPHILS % (AUTO) 0.5 % (0-2); HEMATOCRIT 38.9 % (37.9-51.0); HEMOGLOBIN 13.5 g/dL (13.5-17.0); LYMPHOCYTES % (AUTO) 17.3 % (13-45); MEAN CORPUSCULAR HEMOGLOBIN 32.7 pg (27.0-33.4); MEAN CORPUSCULAR HGB CONC 34.8 g/dL (32.0-36.0); MEAN CORPUSCULAR VOLUME 94 fl (80-97); MONOCYTES % (AUTO) 9.3 % (3-13); RED BLOOD COUNT 4.13 10^6/uL (4.35-5.55); RED CELL DISTRIBUTION WIDTH 16.5 % (11.5-14.0); SEGMENTED NEUTROPHILS % (AUTO) 67.9 % (42-78); TOTAL CELLS COUNTED % (AUTO) 100 %; WHITE BLOOD COUNT 6.2 10^3/uL (4.0-10.5)
[2018-04-06 15:45] LABS: ALANINE AMINOTRANSFERASE 47 U/L (21-72); ALBUMIN 3.1 g/dL (3.5-5.0); ALKALINE PHOSPHATASE 144 U/L (38-126); ANION GAP 9 (5-19); ASPARTATE AMINO TRANSFERASE 92 U/L (17-59); BILIRUBIN,DIRECT 1.3 mg/dL (0.0-0.4); BILIRUBIN,TOTAL 3.8 mg/dL (0.2-1.3); BLOOD UREA NITROGEN 26 mg/dL (7-20); CARBON DIOXIDE 26 mmol/L (22-30); CHLORIDE 108 mmol/L (98-107); CREATINE KINASE 411 U/L (55-170); GLUCOSE 90 mg/dL (75-110); POTASSIUM 3.7 mmol/L (3.6-5.0); SODIUM 143.4 mmol/L (137-145)
[2018-04-06 15:47] LABS: PLATELET COUNT 71 10^3/uL (150-450)
[2018-04-06 15:53] VITALS: BP 128/69
[2018-04-06 16:02] LABS: APPEARANCE,URINE CLEAR; BILIRUBIN,URINE NEGATIVE (NEGATIVE); COLOR,URINE YELLOW; GLUCOSE, URINE NEGATIVE (NEGATIVE); KETONES,URINE TRACE mg/dL (NEGATIVE); LEUKOCYTE ESTERASE,URINE NEGATIVE (NEGATIVE); NITRITE,URINE NEGATIVE (NEGATIVE); PROTEIN,URINE NEGATIVE (NEGATIVE); URINE SPECIFIC GRAVITY 1.014
--- NOTE | 2018-04-06 16:37 | RADIOLOGY REPORT (SQ) ---
EXAM DESCRIPTION: CT HEAD WITHOUT COMPLETED DATE/TIME: 04/06/2018 4:27 pm REASON FOR STUDY: trauma injury, pain COMPARISON: None. TECHNIQUE: Axial images acquired through the brain without intravenous contrast. Images reviewed wi th bone, brain and subdural windows. Additional sagittal and coronal reconstructions were generated. Images stored on PACS. All CT scanners at this facility use dose modulation, iterative reconstruction, and/or weight based d osing when appropriate to reduce radiation dose to as low as reasonably achievable (ALARA). [facility]: Dose Right [facility]: CareDose [facility]: Dose Right [facility]: Teradose 4D [facility]: [employer] RADIATION DOSE: CT Rad equipment meets quality standard of care and radiation dose reduction techniq ues were employed. CTDIvol: 53.2 mGy. DLP: 1017 mGy-cm. mGy. LIMITATIONS: None. FINDINGS: VENTRICLES: Normal size and contour. CEREBRUM: No masses. No hemorrhage. No midline shift. No evidence for acute infarction. Normal gra y/white matter differentiation. No areas of low density in the white matter. CEREBELLUM: No masses. No hemorrhage. No alteration of density. No evidence for acute infarction. EXTRAAXIAL SPACES: No fluid collections. No masses. ORBITS AND GLOBE: No intra- or extraconal masses. Normal contour of globe without masses. CALVARIUM: No fracture. PARANASAL SINUSES: No fluid or mucosal thickening. SOFT TISSUES: No mass or hematoma. OTHER: No other significant finding. IMPRESSION: NORMAL BRAIN CT WITHOUT CONTRAST. EVIDENCE OF ACUTE STROKE: NO. COMMENT: Quality ID # 436: Final reports with documentation of one or more dose reduction techniques (e.g., Automated exposure control, adjustment of the mA and/or kV according to patient size, use of iterative reconstruction technique) TECHNICAL DOCUMENTATION: JOB ID: [id number] [employer] All Rights Reserved Reading location - IP/workstation name: [email or web address]
[2018-04-06] MEDS ORDERED: FENTANYL CITRATE INJ/PF 100 MCG/2 ML AMPUL IV ONE (16:38)
--- NOTE | 2018-04-06 16:41 | RADIOLOGY REPORT (SQ) ---
EXAM DESCRIPTION: CT CERVICAL SPINE WITHOUT COMPLETED DATE/TIME: 04/06/2018 4:27 pm REASON FOR STUDY: trauma COMPARISON: None. TECHNIQUE: Axial images acquired through the cervical spine without intravenous contrast. Images re viewed with lung, soft tissue and bone windows. Reconstructed coronal and sagittal MPR images review ed. Images stored on PACS. All CT scanners at this facility use dose modulation, iterative reconstruction, and/or weight based d osing when appropriate to reduce radiation dose to as low as reasonably achievable (ALARA). [facility]: Dose Right [facility]: CareDose [facility]: Dose Right [facility]: Teradose 4D [facility]: [employer] RADIATION DOSE: CT Rad equipment meets quality standard of care and radiation dose reduction techniq ues were employed. CTDIvol: 19.7 mGy. DLP: 462 mGy-cm. mGy. LIMITATIONS: None. 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 MINERALIZATION: Normal. VERTEBRAL BODIES: No fractures or dislocation. DISCS: Multilevel disc space narrowing with osteophytes. FACETS, LATERAL MASSES, POSTERIOR ELEMENTS: Facet arthropathy. No fractures. No dislocation. No ac absentee-shawnee findings. HARDWARE: None in the spine. VISUALIZED RIBS: No fractures. LUNG APICES AND SOFT TISSUES: No significant or acute findings. OTHER: No other significant finding. IMPRESSION: CHRONIC DEGENERATIVE CHANGES. NO ACUTE FINDINGS. TECHNICAL DOCUMENTATION: JOB ID: [id number] [place]-72 Quality ID # 436: Final reports with documentation of one or more dose reduction techniques (e.g., Au tomated exposure control, adjustment of the mA and/or kV according to patient size, use of iterative reconstruction technique) 2010 [employer]- All Rights Reserved Reading location - IP/workstation name: [employer]
--- NOTE | 2018-04-06 16:52 | RADIOLOGY REPORT (SQ) ---
EXAM DESCRIPTION: CT CHEST WITH COMPLETED DATE/TIME: 04/06/2018 4:36 pm REASON FOR STUDY: trauma COMPARISON: None. TECHNIQUE: CT scan of the chest performed using helical scanning technique with dynamic intravenous contrast injection. Images reviewed with lung, soft tissue and bone windows. Reconstructed coronal and sagittal MPR images reviewed. All images stored on PACS. All CT scanners at this facility use dose modulation, iterative reconstruction, and/or weight based d osing when appropriate to reduce radiation dose to as low as reasonably achievable (ALARA). [facility]: Dose Right [facility]: CareDose [facility]: Dose Right [facility]: Teradose 4D [facility]: [employer] CONTRAST TYPE AND DOSE: Not reported. RENAL FUNCTION: BUN 26; creatinine 0.63 RADIATION DOSE: . LIMITATIONS: None. FINDINGS: LUNGS AND PLEURA: Dependent and bibasilar atelectasis. No pleural effusion. No pneumotho rax. HILAR AND MEDIASTINAL STRUCTURES: No identified masses or abnormal nodes. HEART AND VASCULAR STRUCTURES: Ectatic ascending aorta. No aneurysm. No central pulmonary emboli. Coronary artery disease is present. No pericardial effusion. HARDWARE: None in the chest. UPPER ABDOMEN: See separate report of the CT of the abdomen. THYROID AND OTHER SOFT TISSUES: No masses. No adenopathy. BONES: No significant finding. OTHER: No other significant finding. IMPRESSION: No evidence of pulmonary or osseous injury. Chronic and incidental findings as detailed above. TECHNICAL DOCUMENTATION: JOB ID: [id number] Quality ID # [id number]: Final reports with documentation of one or more dose reduction techniques (e.g., Au tomated exposure control, adjustment of the mA and/or kV according to patient size, use of iterative reconstruction technique) 2010 [email or web address]- All Rights Reserved Reading location - IP/workstation name: [email or web address]
--- NOTE | 2018-04-06 16:57 | RADIOLOGY REPORT (SQ) ---
EXAM DESCRIPTION: CT ABD/PELVIS WITH IV ONLY COMPLETED DATE/TIME: 04/06/2018 4:36 pm REASON FOR STUDY: trauma COMPARISON: None. TECHNIQUE: CT scan of the abdomen and pelvis performed using helical scanning technique with dynamic intravenous contrast injection. No oral contrast. Images reviewed with lung, soft tissue, and bone windows. Reconstructed coronal and sagittal MPR images reviewed. Delayed images for evaluation of the urinary system also acquired. All images stored on PACS. All CT scanners at this facility use dose modulation, iterative reconstruction, and/or weight based d osing when appropriate to reduce radiation dose to as low as reasonably achievable (ALARA). [facility]: Dose Right [facility]: CareDose [facility]: Dose Right [facility]: Teradose 4D [facility]: [employer] CONTRAST TYPE AND DOSE: contrast/concentration: Isovue 370.00 mg/ml; Total Contrast Delivered: 71.0 ml; Total Saline Delivered: 66.0 ml RENAL FUNCTION: GFR > 60. RADIATION DOSE: CT Rad equipment meets quality standard of care and radiation dose reduction techniq ues were employed. CTDIvol: 11.9 - 17.5 mGy. DLP: 1796 mGy-cm.. LIMITATIONS: None. FINDINGS: LOWER CHEST: Bilateral basilar subsegmental atelectasis. LIVER: Probable 3.2 cm hypodense lesion noted in the central right lobe of the liver, seen best on th e delayed images. No dilated ducts. SPLEEN: Enlarged size. Adjacent splenules noted. No focal lesions. PANCREAS: Moderate calcifications in the tail. Pancreatic duct not dilated. GALLBLADDER: Surgically absent. ADRENAL GLANDS: No significant masses or asymmetry. RIGHT KIDNEY AND URETER: No solid masses. No significant calcifications. No hydronephrosis or hyd roureter. LEFT KIDNEY AND URETER: No solid masses. No significant calcifications. No hydronephrosis or hydr oureter. AORTA AND VESSELS: Numerous varices throughout the abdomen. No aortic aneurysm. No dissection. Renal arteries, SMA, celiac patent. RETROPERITONEUM: No retroperitoneal adenopathy, hemorrhage or masses. BOWEL AND PERITONEAL CAVITY: Mild free fluid. No evidence for obstruction. . APPENDIX: Normal. PELVIS: Mild free fluid. Normal bladder. ABDOMINAL WALL: No masses. No hernias. BONES: No acute findings. OTHER: No other significant finding. IMPRESSION: Mild ascites and numerous varices throughout the abdomen. Splenomegaly. Probable 3.2 c m hypodense lesion noted in the central right lobe of the liver, seen best on the delayed images. Bilateral basilar subsegmental atelectasis. TECHNICAL DOCUMENTATION: JOB ID: [id number] [place]-72 Quality ID # 436: Final reports with documentation of one or more dose reduction techniques (e.g., Au tomated exposure control, adjustment of the mA and/or kV according to patient size, use of iterative reconstruction technique) 2010 [employer]- All Rights Reserved Reading location - IP/workstation name: [email or web address]
[2018-04-06] MEDS ORDERED: NORMAL SALINE 1000 ML 1,000 ML IV ONE (17:26)
--- NOTE | 2018-04-06 21:47 | EKG REPORT ---
SEVERITY:- ABNORMAL ECG - SINUS RHYTHM PROLONGED QT INTERVAL : Confirmed by: Florinda Javier MD 06-Apr-2018 21:46:52
== END 2018-04-06 20:16 | disposition home or self-care (01) ==
LOC: ER 13:55
DX: S30.0XXA Contusion of lower back and pelvis, initial encounter (principal); S30.1XXA Contusion of abdominal wall, initial encounter; S70.02XA Contusion of left hip, initial encounter; S70.01XA Contusion of right hip, initial encounter; S80.211A Abrasion, right knee, initial encounter; W18.2XXA Fall in (into) shower or empty bathtub, initial encounter; B37.2 Candidiasis of skin and nail; I10 Essential (primary) hypertension; B19.20 Unspecified viral hepatitis C without hepatic coma; R18.8 Other ascites; K76.9 Liver disease, unspecified; I86.8 Varicose veins of other specified sites
CPT/HCPCS: 93005; 99284; 96361; 96374; 36415; 82550; 85025; 80053; 81001; 84484; 70450; 71260; 72125; 74177; 93010; J3010; J7030; J7040

== ENCOUNTER 2018-04-07 11:10 | Inpatient (IN) | payer MEDICARE ==
--- NOTE | 2018-04-07 11:34 | ER Document Report ---
ED Fall <STEVE KERNS - Last Filed: 04/07/18 15:09> - General Mode of Arrival: Medic Information source: Patient TRAVEL OUTSIDE OF THE [place] IN LAST 30 DAYS: No <RYAN HUTCHINS - Last Filed: 04/07/18 17:30> - General Chief Complaint: Fall Stated Complaint: FALL ALTERED MENTAL STATUS Time Seen by Provider: 04/07/18 11:14 Notes: This 72-year-old male patient brought to emergency room by EMS. He was seen here yesterday after suffering a fall and had multiple CT scans including IV contrast his scans. By history he was on the shower floor approximately 6 hours yesterday. He was given 1/2 L of IV fluids yesterday. The paramedics went by his home to drop off his belongings and discovered that he was on the floor when they looked through the window. By history he had been on the floor for approximately 3 hours. They report that he did not realize that he needs to use his medical alarm. Today his CK is higher than it was yesterday, his urine specific gravity is quite high suggesting that the IV contrast is still being filtered by his kidneys and that he is obviously not drinking enough fluids. (STEVE KERNS) Patient is a 72 year old male presenting to the emergency department via EMS complaining of a fall. Patient was seen and discharged in this emergency department yesterday after falling in the shower around 0630 and proceeding to call EMS at 1230. Upon EMS arrival to the scene patient was found lying on his shower floor covered in feces. Patient received CT scans, xrays and fluids while in the emergency department. Today, patient states he was walking with a walker out of his bathroom when he tripped over a ledge and fell. Patient states he called EMS approximately 3-4 hours later. Patient states he lives alone and has been frequently falling over the last month further stating he has fallen 7x within the last 4 days. Patient complains of some right upper eyelid pain from hitting his head in the shower yesterday. Patient denies a loss of consciousness today. (RYAN HUTCHINS) - Related data Allergies/Adverse Reactions: No Known Allergies Allergy (Verified 01/26/17 20:24) Past Medical History - General Information source: Patient, Emergency Med Personnel - Social History Smoking Status: Current Some Day Smoker Cigarette use (# per day): Yes Family History: CAD, Hypertension - Past Medical History Cardiac Medical History: Reports: Hx Hypertension Pulmonary Medical History: Reports: Hx Asthma - as a child GI Medical History: Reports: Hx Cirrhosis, Hx Gastroesophageal Reflux Disease, Hx Hepatitis - HEP. C Musculoskeletal Medical History: Reports Hx Arthritis, Reports Hx Musculoskeletal Trauma Psychiatric Medical History: Reports: Hx Depression Infectious Medical History: Reports: Hx Hepatitis - HEP. C Past Surgical History: Reports: Hx Cholecystectomy, Hx Orthopedic Surgery - L-4 VERTEBROPLASTY 01/25/17, Other - L-4 VERTEBROPLASTY 01/25 - Immunizations Hx Diphtheria, Pertussis, Tetanus Vaccination: Yes <RYAN HUTCHINS - Last Filed: 04/07/18 17:30> Review of Systems - Review of Systems Constitutional: No symptoms reported EENT: No symptoms reported Cardiovascular: No symptoms reported Respiratory: No symptoms reported Gastrointestinal: No symptoms reported Genitourinary: No symptoms reported Musculoskeletal: See HPI Skin: No symptoms reported Hematologic/Lymphatic: No symptoms reported Neurological/Psychological: See HPI -: Yes All other systems reviewed and negative <RYAN HUTCHINS - Last Filed: 04/07/18 17:30> Physical Exam - General General appearance: Appears well, Alert In distress: None - HEENT Head: Normocephalic, Tenderness - Right lateral upper eyelid and lateral orbital rim is tender to palpation and contains some edema. Conjunctiva: Normal Extraocular movements intact: Yes Pupils: PERRL Mucous membranes: Dry Neck: Normal - Respiratory Respiratory status: No respiratory distress Chest status: Nontender Breath sounds: Normal Chest palpation: Normal - Cardiovascular Rhythm: Regular Heart sounds: Normal auscultation Murmur: No Friction rub: No Gallop: None auscultated - Abdominal Inspection: Normal Distension: No distension Bowel sounds: Normal Tenderness: Nontender - States he has to have a bowel movement Organomegaly: No organomegaly - Back Back: Normal - Extremities General upper extremity: Normal ROM - asterixis General lower extremity: Normal ROM Hip: No: Pain with ROM - No pain with passive ROM bilaterally - Neurological Neuro grossly intact: Yes Cognition: Normal Orientation: AAOx4 [place] Coma Scale Eye Opening: Spontaneous [place] Coma Scale Verbal: Oriented [place] Coma Scale Motor: Obeys Commands [place] Coma Scale Total: 15 Speech: Normal - Psychological Associated symptoms: Normal affect, Normal mood - Skin Skin Temperature: Warm Skin Moisture: Dry Skin Color: Erythema - to the lower anterior leg bilaterally. <RYAN HUTCHINS - Last Filed: 04/07/18 17:30> - Vital signs Vitals: Temp Pulse Resp BP Pulse Ox 97.6 F 91 18 142/64 H 95 04/07/18 11:23 04/07/18 11:23 04/07/18 11:23 04/07/18 11:23 04/07/18 11:23 Course - Laboratory Result Diagrams: 04/07/18 11:59 04/07/18 11:59 - Consults Dr. Marsh Time consulted: 15:05 Consulted provider: will come to ER <STEVE KERNS - Last Filed: 04/07/18 15:09> - Laboratory Result Diagrams: 04/07/18 11:59 04/07/18 11:59 <RYAN HUTCHINS - Last Filed: 04/07/18 17:30> - Vital Signs Vital signs: Temp Pulse Resp BP Pulse Ox 97.4 F 82 16 121/60 95 04/07/18 16:37 04/07/18 16:37 04/07/18 16:37 04/07/18 16:37 04/07/18 16:37 - Laboratory Laboratory results interpreted by me: 04/07/18 04/07/18 04/07/18 11:59 11:59 11:59 RBC 3.89 L Hgb 12.7 L Hct 36.9 L RDW 16.7 H Plt Count 69 L Sodium 145.6 H Chloride 112 H BUN 24 H Total Bilirubin 3.5 H Direct Bilirubin 1.4 H AST 105 H Alkaline Phosphatase 135 H Creatine Kinase 649 H Albumin 3.1 L Urine Ketones 20 H Urine Urobilinogen 4.0 H Ur Leukocyte Esterase MODERATE H Discharge - Discharge Admitting Provider: Hospitalist Unit Admitted: Medical Floor <STEVE KERNS - Last Filed: 04/07/18 15:09> <RYAN HUTCHINS - Last Filed: 04/07/18 17:30> - Discharge Clinical Impression: Frequent falls Rhabdomyolysis Qualifiers: Rhabdomyolysis type: traumatic Encounter type: initial encounter Qualified Code (s): T79.6XXA - Traumatic ischemia of muscle, initial encounter Cirrhosis Qualifiers: Hepatic cirrhosis type: unspecified hepatic cirrhosis Ascites presence: with ascites Qualified Code(s): K74.60 - Unspecified cirrhosis of liver Back pain Qualifiers: Back pain location: back pain in unspecified location Chronicity: chronic Condition: Stable Disposition: ADMITTED OBSERVATION Scribe Attestation: 04/07/18 15:11 I personally performed the services described in the documentation, reviewed and edited the documentation which was dictated to the scribe in my presence, and it accurately records my words and actions. (STEVE KERNS) Scribe Documentation - Scribe Written by Scribe:: Francine Phillip, 04/07/2018 11:37 acting as scribe for :: Janice <RYAN HUTCHINS - Last Filed: 04/07/18 17:30>
[2018-04-07 12:30] LABS: ABSOLUTE EOSINOPHILS # (AUTO) 0.3 10^3/uL (0.0-0.6); ABSOLUTE LYMPHOCYTES (AUTO) 1.1 10^3/uL (0.5-4.7); ABSOLUTE MONOCYTES (AUTO) 0.8 10^3/uL (0.1-1.4); ABSOLUTE NEUT (AUTO) 4.2 10^3/uL (1.7-8.2); BASOPHILS % (AUTO) 0.3 % (0-2); EOSINOPHILS % (AUTO) 4.2 % (0-6); HEMATOCRIT 36.9 % (37.9-51.0); HEMOGLOBIN 12.7 g/dL (13.5-17.0); MEAN CORPUSCULAR HEMOGLOBIN 32.6 pg (27.0-33.4); MEAN CORPUSCULAR HGB CONC 34.4 g/dL (32.0-36.0); MEAN CORPUSCULAR VOLUME 95 fl (80-97); MONOCYTES % (AUTO) 11.9 % (3-13); RED BLOOD COUNT 3.89 10^6/uL (4.35-5.55); RED CELL DISTRIBUTION WIDTH 16.7 % (11.5-14.0); SEGMENTED NEUTROPHILS % (AUTO) 66.6 % (42-78); TOTAL CELLS COUNTED % (AUTO) 100 %; WHITE BLOOD COUNT 6.3 10^3/uL (4.0-10.5)
[2018-04-07 12:32] LABS: APPEARANCE,URINE CLEAR; BILIRUBIN,URINE NEGATIVE (NEGATIVE); COLOR,URINE AMBER; GLUCOSE, URINE NEGATIVE (NEGATIVE); KETONES,URINE 20 mg/dL (NEGATIVE); LEUKOCYTE ESTERASE,URINE MODERATE (NEGATIVE); NITRITE,URINE NEGATIVE (NEGATIVE); PROTEIN,URINE NEGATIVE (NEGATIVE); URINE SPECIFIC GRAVITY 1.039
[2018-04-07 12:42] LABS: ALANINE AMINOTRANSFERASE 43 U/L (21-72); ALBUMIN 3.1 g/dL (3.5-5.0); ALKALINE PHOSPHATASE 135 U/L (38-126); ANION GAP 11 (5-19); ASPARTATE AMINO TRANSFERASE 105 U/L (17-59); BILIRUBIN,DIRECT 1.4 mg/dL (0.0-0.4); BILIRUBIN,TOTAL 3.5 mg/dL (0.2-1.3); BLOOD UREA NITROGEN 24 mg/dL (7-20); CALCIUM 8.8 mg/dL (8.4-10.2); CARBON DIOXIDE 23 mmol/L (22-30); CHLORIDE 112 mmol/L (98-107); CREATINE KINASE 649 U/L (55-170); GLUCOSE 93 mg/dL (75-110); POTASSIUM 3.7 mmol/L (3.6-5.0); SODIUM 145.6 mmol/L (137-145); TOTAL PROTEIN 6.6 g/dL (6.3-8.2)
[2018-04-07] MEDS ORDERED: NORMAL SALINE 1000 ML 1,000 ML IV ONE (12:43)
[2018-04-07 13:12] LABS: PLATELET COUNT 69 10^3/uL (150-450)
[2018-04-07] MEDS ORDERED: OXYCODONE HCL IR 5 MG TABLET PO ONE (13:12)
[2018-04-07] MEDS ORDERED: RINGERS SOLUTION,LACTATED 1,000 ML IV PRN (15:16)
--- NOTE | 2018-04-07 16:22 | PDOC H&P ---
History of Present Illness Admission Date/PCP: 04/07/18 15:29 ARON FERGUSON Patient complains of: Pain in knees from falls. His family complains of slurred speech and ambulatory dysfunction. History of Present Illness: RADHA YEBOAH JR is a 72 year old male who was discharged from [place] after an inpatient stay at [place] in December. The patient states that during that inpatient stay in [place] it was felt that the doses of his home pain medications were too high. He states that they were reduced before he was discharged to [place], but that while at [place] they were again increased. The family states that the patient has been falling a lot. The patient's daughter who is at bedside states that the patient is very unstable on his feet. She also states that he is slurring his speech. The patient carries a past medical history positive for hepatitis C for which he has undergone treatment that he states "ruined his liver". He has portal hypertension and varices. In December he was found to have a MELD score of 15. He has chronic anemia and chronic pain as well as hypertension. Past Medical History Cardiac Medical History: Reports: Hypertension Denies: Coronary Artery Disease, Myocardial Infarction Pulmonary Medical History: Reports: Asthma - as a child Denies: Bronchitis, Chronic Obstructive Pulmonary Disease (COPD), Pneumonia Neurological Medical History: Denies: Seizures GI Medical History: Reports: Cirrhosis, Gastroesophageal Reflux Disease, Hepatitis - HEP. C, Other - Portal hypertension with varices. Musculoskeltal Medical History: Reports: Arthritis Psychiatric Medical History: Reports: Depression Hematology: Reports: Anemia Infectious Medical History: Reports: Hepatitis C Past Surgical History Past Surgical History: Reports: Cholecystectomy, Orthopedic Surgery - L-4 VERTEBROPLASTY 01/25/17, Other - L-4 VERTEBROPLASTY 01/25 Denies: Pacemaker Social History Smoking Status: Current Some Day Smoker Frequency of Alcohol Use: None - Unknown Hx Recreational Drug Use: No Drugs: None Hx Prescription Drug Abuse: No Family History Family History: CAD, Hypertension Parental Family History Reviewed: Yes Children Family History Reviewed: Yes Sibling(s) Family History Reviewed.: Yes Medication/Allergy Home Medications: Furosemide [Lasix 20 mg Tablet] 20 mg PO DAILY 01/16/18 Nadolol [Corgard 40 mg Tablet] 40 mg PO DAILY 01/16/18 Oxycodone HCl/Acetaminophen [Percocet 10-325 mg Tablet] 1 tab PO Q8HP PRN Pantoprazole Sodium [Protonix] 40 mg PO DAILY 01/16/18 Pramipexole Di-HCl [Mirapex 0.5 mg Tablet] 0.5 mg PO Q12 01/16/18 Sertraline HCl [Zoloft] 100 mg PO DAILY 01/16/18 Spironolactone [Aldactone] 50 mg PO DAILY 01/16/18 Tamsulosin HCl [Flomax 0.4 mg Cap.sr] 0.4 mg PO DAILY 01/16/18 Lactulose [Cephulac Syrup 20 gm/30 ml Udcup] 20 gm PO Q8 #90 udc 01/21/18 Lidocaine [Lidoderm 5% (700 mg) Transdermal Patch] 1 patch TP DAILY #30 adh..patch 01/21/18 Oxycodone HCl/Acetaminophen [Oxycodone-Acetaminophen 5-325] 2 each PO TIDP PRN # 18 tablet 01/21/18 Oxycodone HCl/Acetaminophen [Percocet 5-325 mg Tablet] 2 tab PO Q8HP PRN #18 tablet 01/21/18 Pramipexole Di-HCl [Mirapex 0.5 mg Tablet] 0.5 mg PO Q12A tablet 01/21/18 Rifaximin [Xifaxan 550 mg Tablet] 550 mg PO BID #60 tablet 01/21/18 Tizanidine HCl [Zanaflex 4 mg Tablet] 2 mg PO QHS #3 tablet 01/21/18 Allergies/Adverse Reactions: No Known Allergies Allergy (Verified 01/26/17 20:24) Review of Systems Constitutional: PRESENT: weakness, other - Difficulty with ambulation. ABSENT: chills, fever(s) Eyes: ABSENT: visual disturbances Ears: ABSENT: hearing changes Nose, Mouth, and Throat: ABSENT: headache(s), mouth pain, sore throat Cardiovascular: ABSENT: chest pain, dyspnea on exertion, edema, orthropnea, palpitations Respiratory: ABSENT: cough, dyspnea, sputum Gastrointestinal: PRESENT: diarrhea - The patient is on lactulose.. ABSENT: abdominal pain, constipation, dysphagia, hematemesis, melena, nausea, vomiting Genitourinary: ABSENT: difficulty urinating, dysuria, hematuria Integumentary: ABSENT: erythema, lesions, pruritus Neurological: PRESENT: abnormal gait, abnormal speech, frequent falls, lack of coordination Endocrine: ABSENT: cold intolerance, heat intolerance, polydipsia, polyphagia Hematologic/Lymphatic: ABSENT: easy bleeding, easy bruising, lymphadenopathy Physical Exam Vital Signs: Temp Pulse Resp BP Pulse Ox 97.6 F 91 18 142/64 H 95 04/07/18 11:23 04/07/18 11:23 04/07/18 11:23 04/07/18 11:23 04/07/18 11:23 General appearance: PRESENT: no acute distress, cooperative, disheveled, thin, other - The patient appears acutely and chronically ill. His speech is difficult to understand and somewhat pressured. Head exam: PRESENT: atraumatic - The patient did hit his head yesterday, but, normocephalic Eye exam: PRESENT: EOMI, PERRLA, scleral icterus, other - No scleral injectino.. ABSENT: nystagmus Ear exam: PRESENT: normal external ear exam Mouth exam: PRESENT: dry mucosa, neck supple. ABSENT: laceration Neck exam: ABSENT: carotid bruit, JVD, lymphadenopathy, meningismus, thyromegaly Respiratory exam: PRESENT: other - No increased work of breathing.. ABSENT: rales, rhonchi, wheezes Cardiovascular exam: PRESENT: RRR, other - No lateral PMI. No thrills.. ABSENT : gallop, rubs, systolic murmur Pulses: PRESENT: other - Diminished distal pulses. GI/Abdominal exam: PRESENT: ascites, normal bowel sounds, soft. ABSENT: hernia , mass, Aviles's sign, organolmegaly, tenderness Extremities exam: ABSENT: clubbing, tenderness, +1 edema Musculoskeletal exam: PRESENT: tenderness - ecchymosis to knees bilaterally. Neurological exam: PRESENT: alert, altered, awake, oriented to person, oriented to place, oriented to time, oriented to situation, CN II-XII grossly intact, other - Slurred speech.. ABSENT: motor sensory deficit Psychiatric exam: PRESENT: unusual affect Focused psych exam: PRESENT: flight of ideas, pressured speech Skin exam: PRESENT: abrasion - Knees bilaterally. Assessment & Plan - Diagnosis (1) Jaundice Is this a current diagnosis for this admission?: Yes (2) Dysarthria Is this a current diagnosis for this admission?: Yes (3) Cirrhosis Qualifiers: Hepatic cirrhosis type: unspecified hepatic cirrhosis Ascites presence: with ascites Qualified Code(s): K74.60 - Unspecified cirrhosis of liver; R18.8 - Other ascites; R18.8 - Other ascites Is this a current diagnosis for this admission?: Yes (4) Frequent falls Is this a current diagnosis for this admission?: Yes (5) Abrasion Is this a current diagnosis for this admission?: Yes (6) Acute encephalopathy Is this a current diagnosis for this admission?: Yes (7) Anemia Qualifiers: Anemia type: unspecified type Qualified Code(s): D64.9 - Anemia, unspecified Is this a current diagnosis for this admission?: Yes (8) Contusion Qualifiers: Encounter type: initial encounter Contusion area: knee Laterality: unspecified laterality Qualified Code(s): S80.00XA - Contusion of unspecified knee, initial encounter Is this a current diagnosis for this admission?: Yes (9) Dehydration Is this a current diagnosis for this admission?: Yes (10) End stage liver disease Is this a current diagnosis for this admission?: Yes (11) Fall Qualifiers: Encounter type: initial encounter Qualified Code(s): W19.XXXA - Unspecified fall, initial encounter Is this a current diagnosis for this admission?: Yes (12) Urinary tract infection Qualifiers: Urinary tract infection type: acute cystitis Hematuria presence: without hematuria Qualified Code(s): N30.00 - Acute cystitis without hematuria Is this a current diagnosis for this admission?: Yes - Time Time Spent: Greater than 70 Minutes Medications reviewed and adjusted accordingly: Yes Anticipated discharge: SNF - Inpatient Certification Based on my medical assessment, after consideration of the patient's comorbidities, presenting symptoms, or acuity I expect that the services needed warrant INPATIENT care.: Yes I certify that my determination is in accordance with my understanding of Medicare's requirements for reasonable and necessary INPATIENT services [42 CFR 412.3e].: Yes Medical Necessity: Need Close Monitoring Due to Risk of Patient Decompensation, Need For IV Fluids, Need for IV Antibiotics, Risk of Complication if Not Cared For in Hospital - Plan Summary Plan Summary: The patient will be admitted to a medical bed. He will have an ultrasound of his abdomen to investigate jaundice. He will receive IV antibiotics as well as IV fluids. CT of the head will be ordered if not already performed to rule out infarction as a cause for his slurred speech. He will be continued on his home medications as possible. Hepatitis panel has been ordered. I will check a thiamine and folate level. The patient and family are evasive about the patient' s alcohol history. Its possible that he has Wenicke's encephalopathy. His pain medications will be adjusted. He will be evaluated by PT/OT. He will be continued on his home medications as possible.
--- NOTE | 2018-04-07 17:09 | RADIOLOGY REPORT (SQ) ---
EXAM DESCRIPTION: U/S ABDOMEN COMPLETE W/O DOP COMPLETED DATE/TIME: 04/07/2018 4:48 pm REASON FOR STUDY: elevated bilirubin D64.9 ANEMIA, UNSPECIFIED COMPARISON: CT 04/06/2018 TECHNIQUE: Dynamic and static grayscale images acquired of the abdomen and recorded on PACS. Additio nal selected color Doppler and spectral images recorded. LIMITATIONS: Acoustic impedance precludes evaluation of the pancreas and aorta. Poor visualization of the remaining abdominal structures. FINDINGS: PANCREAS: Not visualized. LIVER: Normal size demonstrating hepatic steatosis. LIVER VASCULATURE: Normal directional flow of the main portal vein and hepatic veins. GALLBLADDER: Surgically absent. ULTRASOUND-DETECTED COLE'S SIGN: Negative. INTRAHEPATIC DUCTS AND COMMON DUCT: Not visualized. INFERIOR VENA CAVA: Normal flow. AORTA: Not visualized. RIGHT KIDNEY: Normal size. Grossly normal echogenicity. No solid or suspicious masses. No hydr onephrosis. No calcifications. LEFT KIDNEY: Normal size. Grossly normal echogenicity. No solid or suspicious masses. No hydro nephrosis. No calcifications. SPLEEN: Splenomegaly. PERITONEAL AND PLEURAL SPACES: Mild ascites. OTHER: No other significant finding. IMPRESSION: Markedly limited exam. Status post cholecystectomy. Splenomegaly. Hepatic steatosis; the intrahepatic and extrahepatic bile ducts are not adequately visualized, but did not appear dilate d on CT imaging performed 04/06/2018. Mild ascites. TECHNICAL DOCUMENTATION: JOB ID: [id number]- All Rights Reserved Reading location - IP/workstation name: [email or web address]
[2018-04-07] MEDS ORDERED: CEFTRIAXONE INJ 1000 MG VIAL ONE (17:49)
[2018-04-07] MEDS: RIFAXIMIN 550 MG TABLET PO SCH (17:51)
[2018-04-07] MEDS: CEFTRIAXONE SODIUM 1,500 MG in NORMAL SALINE 100 ML IV SCH (18:07)
[2018-04-07] MEDS ORDERED: PRAMIPEXOLE DI-HCL 0.5 MG TABLET ONE (21:27)
[2018-04-07] MEDS: PRAMIPEXOLE DI-HCL 0.5 MG TABLET PO SCH (21:41)
[2018-04-07] MEDS: LACTULOSE SYRUP 20 GM/30 ML UDCUP PO SCH (21:48)
[2018-04-07] MEDS: TIZANIDINE HCL 4 MG TABLET PO SCH (21:49)
[2018-04-07] MEDS: OXYCODONE HCL IR 5 MG TABLET PO PRN (22:26)
[2018-04-08] MEDS: LACTULOSE SYRUP 20 GM/30 ML UDCUP PO SCH ×4 (05:14→23:08)
[2018-04-08 05:41] LABS: ABSOLUTE EOSINOPHILS # (AUTO) 0.3 10^3/uL (0.0-0.6); ABSOLUTE LYMPHOCYTES (AUTO) 0.8 10^3/uL (0.5-4.7); ABSOLUTE MONOCYTES (AUTO) 0.3 10^3/uL (0.1-1.4); ABSOLUTE NEUT (AUTO) 1.6 10^3/uL (1.7-8.2); ABSOLUTE RETICS # 0.048 10^6/uL (0.028-0.122); BASOPHILS % (AUTO) 1.2 % (0-2); EOSINOPHILS % (AUTO) 8.6 % (0-6); HEMATOCRIT 32.5 % (37.9-51.0); HEMOGLOBIN 11.3 g/dL (13.5-17.0); LYMPHOCYTES % (AUTO) 25.9 % (13-45); MEAN CORPUSCULAR HEMOGLOBIN 32.7 pg (27.0-33.4); MEAN CORPUSCULAR HGB CONC 34.7 g/dL (32.0-36.0); MEAN CORPUSCULAR VOLUME 94 fl (80-97); MONOCYTES % (AUTO) 10.2 % (3-13); RED BLOOD COUNT 3.45 10^6/uL (4.35-5.55); RED CELL DISTRIBUTION WIDTH 16.5 % (11.5-14.0); RETICULOCYTE COUNT (AUTO) 1.39 % (0.66-2.85); SEGMENTED NEUTROPHILS % (AUTO) 54.1 % (42-78); TOTAL CELLS COUNTED % (AUTO) 100 %
[2018-04-08 05:50] LABS: ALANINE AMINOTRANSFERASE 42 U/L (21-72); ALBUMIN 2.3 g/dL (3.5-5.0); ALKALINE PHOSPHATASE 108 U/L (38-126); ANION GAP 8 (5-19); ASPARTATE AMINO TRANSFERASE 70 U/L (17-59); BILIRUBIN,DIRECT 0.7 mg/dL (0.0-0.4); BILIRUBIN,TOTAL 1.7 mg/dL (0.2-1.3); BLOOD UREA NITROGEN 22 mg/dL (7-20); CALCIUM 8.4 mg/dL (8.4-10.2); CARBON DIOXIDE 25 mmol/L (22-30); CHLORIDE 114 mmol/L (98-107); GLUCOSE 89 mg/dL (75-110); POTASSIUM 3.4 mmol/L (3.6-5.0); SODIUM 146.5 mmol/L (137-145); TOTAL PROTEIN 5.6 g/dL (6.3-8.2)
[2018-04-08 06:25] LABS: WHITE BLOOD COUNT 2.9 10^3/uL (4.0-10.5)
[2018-04-08 06:26] LABS: PLATELET COUNT 56 10^3/uL (150-450)
[2018-04-08] MEDS: OXYCODONE HCL IR 5 MG TABLET PO PRN ×3 (06:27→22:50)
[2018-04-08] MEDS: RIFAXIMIN 550 MG TABLET PO SCH ×2 (09:28→17:40)
[2018-04-08] MEDS: TAMSULOSIN HCL 0.4 MG CAP.SR.24H PO SCH (09:28)
[2018-04-08] MEDS: SERTRALINE HCL 50 MG TABLET PO SCH (09:29)
[2018-04-08] MEDS: LIDOCAINE 5% (700 MG) TRANSDERMAL ADH..PATCH TP SCH (09:29)
[2018-04-08] MEDS: LANSOPRAZOLE 30 MG TAB.RAP.DR PO SCH (09:29)
[2018-04-08] MEDS: PRAMIPEXOLE DI-HCL 0.5 MG TABLET PO SCH ×2 (09:30→21:13)
[2018-04-08] MEDS: NADOLOL 40 MG TABLET PO SCH (10:59)
[2018-04-08] MEDS: SPIRONOLACTONE 25 MG TABLET PO SCH (10:59)
[2018-04-08] MEDS: CALCIUM CARBONATE 500 MG TAB.CHEW PO PRN ×3 (15:05→23:08)
--- NOTE | 2018-04-08 17:14 | PDOC PROGRESS REPORT ---
Subjective Progress Note for:: 04/08/18 Subjective:: The patient's speech is much more clear, although he states that he is feeling more weak. Reason For Visit: RECURRENT FALSS,RHABDOMYOLYSIS,HEPATIC CIRRHOSIS Physical Exam Vital Signs: Temp Pulse Resp BP Pulse Ox 98.9 F 101 H 20 119/58 L 92 04/08/18 16:05 04/08/18 16:05 04/08/18 16:05 04/08/18 16:05 04/08/18 16:05 Intake & Output 04/07/18 04/08/18 04/09/18 06:59 06:59 06:59 Intake Total 1640 Output Total 400 Balance 1240 Weight 77.1 kg General appearance: PRESENT: no acute distress, other - The patient appears acutely and chronically ill. Respiratory exam: PRESENT: other - No increased work of breathing. No wheezes, rales, or rhonchi. Cardiovascular exam: PRESENT: RRR. ABSENT: gallop, rubs, systolic murmur Pulses: PRESENT: other - Diminished distal pulses. GI/Abdominal exam: PRESENT: ascites, distended, normal bowel sounds, soft, other - Scaffoid.. ABSENT: hernia, mass, organolmegaly, tenderness Musculoskeletal exam: PRESENT: full ROM. ABSENT: deformity, tenderness Neurological exam: PRESENT: alert, awake, oriented to person, oriented to place , oriented to time, oriented to situation, reflexes normal, CN II-XII grossly intact. ABSENT: motor sensory deficit Skin exam: PRESENT: dry, intact, warm Results Laboratory Results: 04/08/18 05:05 04/08/18 05:05 04/07/18 04/08/18 04/08/18 16:10 05:05 05:05 WBC 2.9 L D RBC 3.45 L Hgb 11.3 L Hct 32.5 L MCV 94 MCH 32.7 MCHC 34.7 RDW 16.5 H Plt Count 56 L Seg Neutrophils % 54.1 Lymphocytes % 25.9 Monocytes % 10.2 Eosinophils % 8.6 H Basophils % 1.2 Absolute Neutrophils 1.6 L Absolute Lymphocytes 0.8 Absolute Monocytes 0.3 Absolute Eosinophils 0.3 Absolute Basophils 0.0 Retic Count (auto) 1.39 Absolute Retic 0.048 Sodium 146.5 H Potassium 3.4 L Chloride 114 H Carbon Dioxide 25 Anion Gap 8 BUN 22 H Creatinine 0.65 Est GFR ( Amer) > 60 Est GFR (Non-Af Amer) > 60 Glucose 89 Calcium 8.4 Iron 34.0 L TIBC 288 % Saturation 12 Ferritin 93.10 Total Bilirubin 1.7 H AST 70 H ALT 42 Alkaline Phosphatase 108 Total Protein 5.6 L Albumin 2.3 L Vitamin B12 812.0 886.0 Folate 11.80 Impressions: Abdomen Ultrasound 04/07/18 00:00 IMPRESSION: Markedly limited exam. Status post cholecystectomy. Splenomegaly. Hepatic steatosis; the intrahepatic and extrahepatic bile ducts are not adequately visualized, but did not appear dilated on CT imaging performed 04/06/2018. Mild ascites. Assessment & Plan - Diagnosis (1) Jaundice Is this a current diagnosis for this admission?: Yes Plan: IV fluids. Lactulose. CT abdomen and pelvis demonstrates no bile duct dilatation. LDH and haptoglobin normal. (2) Dysarthria Is this a current diagnosis for this admission?: Yes Plan: Resolving. (3) Cirrhosis Qualifiers: Hepatic cirrhosis type: unspecified hepatic cirrhosis Ascites presence: with ascites Qualified Code(s): K74.60 - Unspecified cirrhosis of liver; R18.8 - Other ascites; R18.8 - Other ascites Is this a current diagnosis for this admission?: Yes Plan: Chronic. Continue lactulose and rifaximin. Spironolactone decreased by half due to hypotension on admission. Monitor volume status and blood pressure. Diuretics held. (4) Frequent falls Is this a current diagnosis for this admission?: Yes Plan: PT/OT eval and treat. Anticipate that the patient will need SNF at discharge. (5) Abrasion Is this a current diagnosis for this admission?: Yes Plan: Knees bialterally from frequent falls. (6) Acute encephalopathy Is this a current diagnosis for this admission?: Yes Plan: Appears to be resolving. Likely hepatic encephalopathy. (7) Anemia Qualifiers: Anemia type: unspecified type Qualified Code(s): D64.9 - Anemia, unspecified Is this a current diagnosis for this admission?: Yes Plan: Chronic - monitor. (8) Contusion Qualifiers: Encounter type: initial encounter Contusion area: knee Laterality: unspecified laterality Qualified Code(s): S80.00XA - Contusion of unspecified knee, initial encounter Is this a current diagnosis for this admission?: Yes Plan: To knees bilaterally due to falls. (9) Dehydration Is this a current diagnosis for this admission?: Yes Plan: Improving. (10) End stage liver disease Is this a current diagnosis for this admission?: Yes Plan: Lactulose, rifaximin and reduced dose of spironolactone. Nadolol and lasix held now. (11) Fall Qualifiers: Encounter type: initial encounter Qualified Code(s): W19.XXXA - Unspecified fall, initial encounter Is this a current diagnosis for this admission?: Yes Plan: PT/OT eval and treat. Anticipate need for DC to SNF. (12) Urinary tract infection Qualifiers: Urinary tract infection type: acute cystitis Hematuria presence: without hematuria Qualified Code(s): N30.00 - Acute cystitis without hematuria Is this a current diagnosis for this admission?: Yes Plan: IV antibiotics. - Time Time Spent with patient: 35 or more minutes Medications reviewed and adjusted accordingly: Yes Anticipated discharge: SNF
[2018-04-08] MEDS: CEFTRIAXONE SODIUM 1,500 MG in NORMAL SALINE 100 ML IV SCH (17:39)
[2018-04-08] MEDS: TIZANIDINE HCL 4 MG TABLET PO SCH (21:14)
[2018-04-09] MEDS ORDERED: CYCLOBENZAPRINE HCL 10 MG TABLET PO ONE (00:30)
[2018-04-09 05:25] LABS: ABSOLUTE EOSINOPHILS # (AUTO) 0.2 10^3/uL (0.0-0.6); ABSOLUTE LYMPHOCYTES (AUTO) 0.7 10^3/uL (0.5-4.7); ABSOLUTE MONOCYTES (AUTO) 0.3 10^3/uL (0.1-1.4); ABSOLUTE NEUT (AUTO) 1.6 10^3/uL (1.7-8.2); BASOPHILS % (AUTO) 1.3 % (0-2); HEMATOCRIT 33.6 % (37.9-51.0); HEMOGLOBIN 11.8 g/dL (13.5-17.0); LYMPHOCYTES % (AUTO) 24.2 % (13-45); MEAN CORPUSCULAR HEMOGLOBIN 33.4 pg (27.0-33.4); MEAN CORPUSCULAR HGB CONC 35.1 g/dL (32.0-36.0); MEAN CORPUSCULAR VOLUME 95 fl (80-97); MONOCYTES % (AUTO) 10.3 % (3-13); RED BLOOD COUNT 3.53 10^6/uL (4.35-5.55); RED CELL DISTRIBUTION WIDTH 17.3 % (11.5-14.0); SEGMENTED NEUTROPHILS % (AUTO) 56.2 % (42-78); TOTAL CELLS COUNTED % (AUTO) 100 %; WHITE BLOOD COUNT 2.8 10^3/uL (4.0-10.5)
[2018-04-09 05:30] LABS: ALANINE AMINOTRANSFERASE 37 U/L (21-72); ALBUMIN 2.3 g/dL (3.5-5.0); ALKALINE PHOSPHATASE 179 U/L (38-126); ANION GAP 7 (5-19); ASPARTATE AMINO TRANSFERASE 52 U/L (17-59); BILIRUBIN,DIRECT 0.5 mg/dL (0.0-0.4); BILIRUBIN,TOTAL 1.3 mg/dL (0.2-1.3); BLOOD UREA NITROGEN 21 mg/dL (7-20); CALCIUM 8.3 mg/dL (8.4-10.2); CARBON DIOXIDE 26 mmol/L (22-30); CHLORIDE 113 mmol/L (98-107); GLUCOSE 99 mg/dL (75-110); POTASSIUM 3.4 mmol/L (3.6-5.0); SODIUM 145.9 mmol/L (137-145); TOTAL PROTEIN 5.6 g/dL (6.3-8.2)
[2018-04-09 06:50] LABS: PLATELET COUNT 53 10^3/uL (150-450)
[2018-04-09] MEDS ORDERED: 1/2 NORMAL SALINE 1,000 ML IV PRN (08:44)
[2018-04-09] MEDS: LANSOPRAZOLE 30 MG TAB.RAP.DR PO SCH (09:22)
[2018-04-09] MEDS: SPIRONOLACTONE 25 MG TABLET PO SCH (09:22)
[2018-04-09] MEDS: TAMSULOSIN HCL 0.4 MG CAP.SR.24H PO SCH (09:22)
[2018-04-09] MEDS: SERTRALINE HCL 50 MG TABLET PO SCH (09:22)
[2018-04-09] MEDS: PRAMIPEXOLE DI-HCL 0.5 MG TABLET PO SCH ×2 (09:23→20:52)
[2018-04-09] MEDS: RIFAXIMIN 550 MG TABLET PO SCH ×2 (09:23→17:33)
[2018-04-09] MEDS: CALCIUM CARBONATE 500 MG TAB.CHEW PO PRN ×4 (09:24→20:50)
[2018-04-09] MEDS: NADOLOL 40 MG TABLET PO SCH (09:24)
[2018-04-09] MEDS: LIDOCAINE 5% (700 MG) TRANSDERMAL ADH..PATCH TP SCH (09:24)
[2018-04-09] MEDS ORDERED: POTASSIUM CHLORIDE 10 MEQ CAPSULE.ER PO ONE (10:00)
[2018-04-09] MEDS: OXYCODONE HCL IR 5 MG TABLET PO PRN ×2 (10:53→20:53)
[2018-04-09 11:39] LABS: HEPATITIS A AB IGM Negative (Negative); HEPATITIS B CORE AB IGM Negative (Negative); HEPATITS B SURFACE ANTIGEN Negative (Negative)
[2018-04-09 13:13] LABS: HEPATITIS C VIRUS ANTIBODY >11.0 s/co ratio (0.0-0.9)
--- NOTE | 2018-04-09 13:41 | PDOC PROGRESS REPORT ---
Subjective Progress Note for:: 04/09/18 Subjective:: The patient is awake, and alert. No new complaints. Reason For Visit: RECURRENT FALSS,RHABDOMYOLYSIS,HEPATIC CIRRHOSIS Physical Exam Vital Signs: Temp Pulse Resp BP Pulse Ox 98.7 F 102 H 24 H 130/64 H 91 L 04/09/18 11:50 04/09/18 11:50 04/09/18 11:50 04/09/18 11:50 04/09/18 11:50 Intake & Output 04/08/18 04/09/18 04/10/18 06:59 06:59 06:59 Intake Total 1640 1278 Output Total 400 Balance 1240 1278 Weight 77.1 kg 78.1 kg General appearance: PRESENT: no acute distress, thin, other - chronically ill appearing Eye exam: PRESENT: scleral icterus Respiratory exam: PRESENT: other - No increased work of breathing.. ABSENT: rales, rhonchi, wheezes Cardiovascular exam: PRESENT: RRR. ABSENT: gallop, rubs, systolic murmur Pulses: PRESENT: other - Diminished distal pulses. GI/Abdominal exam: PRESENT: ascites, normal bowel sounds, soft, other - Positive fluid wave.. ABSENT: hernia, mass, organolmegaly Extremities exam: ABSENT: clubbing, tenderness, +1 edema Neurological exam: PRESENT: alert, awake, oriented to person, oriented to place , oriented to time, CN II-XII grossly intact. ABSENT: motor sensory deficit Skin exam: PRESENT: dry, intact, warm Results Laboratory Results: 04/09/18 04:44 04/09/18 04:44 04/09/18 04/09/18 04:44 04:44 WBC 2.8 L RBC 3.53 L Hgb 11.8 L Hct 33.6 L MCV 95 MCH 33.4 MCHC 35.1 RDW 17.3 H Plt Count 53 L Seg Neutrophils % 56.2 Lymphocytes % 24.2 Monocytes % 10.3 Eosinophils % 8.0 H Basophils % 1.3 Absolute Neutrophils 1.6 L Absolute Lymphocytes 0.7 Absolute Monocytes 0.3 Absolute Eosinophils 0.2 Absolute Basophils 0.0 Sodium 145.9 H Potassium 3.4 L Chloride 113 H Carbon Dioxide 26 Anion Gap 7 BUN 21 H Creatinine 0.60 Est GFR ( Amer) > 60 Est GFR (Non-Af Amer) > 60 Glucose 99 Calcium 8.3 L Total Bilirubin 1.3 AST 52 ALT 37 Alkaline Phosphatase 179 H Total Protein 5.6 L Albumin 2.3 L Impressions: Abdomen Ultrasound 04/07/18 00:00 IMPRESSION: Markedly limited exam. Status post cholecystectomy. Splenomegaly. Hepatic steatosis; the intrahepatic and extrahepatic bile ducts are not adequately visualized, but did not appear dilated on CT imaging performed 04/06/2018. Mild ascites. Assessment & Plan - Diagnosis (1) Jaundice Is this a current diagnosis for this admission?: Yes Plan: Resolving due to acute hepatitis. (2) Dysarthria Is this a current diagnosis for this admission?: Yes Plan: Resolved (3) Cirrhosis Qualifiers: Hepatic cirrhosis type: unspecified hepatic cirrhosis Ascites presence: with ascites Qualified Code(s): K74.60 - Unspecified cirrhosis of liver; R18.8 - Other ascites; R18.8 - Other ascites Is this a current diagnosis for this admission?: Yes Plan: Chronic. Continue lactulose and rifaximin. Spironolactone decreased by half due to hypotension on admission. Monitor volume status and blood pressure. Diuretics held. (4) Frequent falls Is this a current diagnosis for this admission?: Yes Plan: PT/OT eval and treat. Anticipate that the patient will need SNF at discharge. (5) Abrasion Is this a current diagnosis for this admission?: Yes Plan: Knees bialterally from frequent falls. (6) Acute encephalopathy Is this a current diagnosis for this admission?: Yes Plan: Resolved (7) Anemia Qualifiers: Anemia type: unspecified type Qualified Code(s): D64.9 - Anemia, unspecified Is this a current diagnosis for this admission?: Yes Plan: Will check iron studies. (8) Contusion Qualifiers: Encounter type: initial encounter Contusion area: knee Laterality: unspecified laterality Qualified Code(s): S80.00XA - Contusion of unspecified knee, initial encounter Is this a current diagnosis for this admission?: Yes Plan: To knees bilaterally due to falls. (9) Dehydration Is this a current diagnosis for this admission?: Yes Plan: Improving. Will stop IV fluids. (10) End stage liver disease Is this a current diagnosis for this admission?: Yes Plan: Lactulose, rifaximin and reduced dose of spironolactone. Nadolol and lasix held now. (11) Fall Qualifiers: Encounter type: initial encounter Qualified Code(s): W19.XXXA - Unspecified fall, initial encounter Is this a current diagnosis for this admission?: Yes Plan: PT/OT eval and treat. Anticipate need for DC to SNF. (12) Urinary tract infection Qualifiers: Urinary tract infection type: acute cystitis Hematuria presence: without hematuria Qualified Code(s): N30.00 - Acute cystitis without hematuria Is this a current diagnosis for this admission?: Yes Plan: IV antibiotics. Await urine cultures. - Time Time Spent with patient: 25-34 minutes Medications reviewed and adjusted accordingly: Yes Anticipated discharge: SNF
[2018-04-09 15:03] LABS: ABSOLUTE RETICS # 0.085 10^6/uL (0.028-0.122); RETICULOCYTE COUNT (AUTO) 2.13 % (0.66-2.85)
[2018-04-09 15:19] LABS: IRON(TIBC) 30.1 ug/dL (49-181)
--- NOTE | 2018-04-09 16:12 | Progress Note ---
Provider Note Provider Note: ID Consult Note Asked to review patient's chart by Pharmacy. Pt not seen or examined. Reviewed VS, labs, imaging reports, provider reports. Mr. Hale is a 72 year old man with history of treated hepatitis C infection , cirrhosis with portal hypertension, HTN, and chronic anemia. He was admitted on 04/07/18 after suffering an accidental fall at home. Per H&P, pt was discharged from a SNF where his home pain medications had been increased, and he has been unstable on his feet. He ambulates with a walker and tripped over a ledge and fell trying to get out of the shower, per ED provider notes, prompting his presentation for further care. On admission, he had no fever. He had loose stools but has been taking lactulose for hepatic encephalopathy. He did not have abdominal pain, dysuria, difficulty urinating or hematuria. His exam was notable for dry mucous membranes, scleral icterus, ascites, ecchymoses and abrasions to b/l knees, and BLE edema but no abdominal tenderness. Labs included elevated bilirubin, normal to low total WBC count, thrombocytopenia, normocytic anemia, elevated CPK and AST. U/A showed 1 WBC/hpf and UCx grew 70k-80k cfu mixed harvinder. BCx have been negative x 1 day. Abdominal US showed mild ascites and splenomegaly. Empirically , pt has been on Rocephin for a presumed UTI. Impression/Recommendations Asymptomatic bacteriuria - Pt had no complaints of typical irritative urinary symptoms such as dysuria or suprapubic pain on presentation, and negative predictive value associated with a lack of pyuria is high. The reverse cannot be said - abnormalities on U/ A such as presence of leukocyte esterase or >5 WBCs/hpf are not diagnostic of UTI, are sensitive but nonspecific. Falls at home appear to be accounted for by other factors - mechanical instability, perhaps change in home pain medications on SNF discharge - Recommend discontinuing Rocephin if there is no other indication for its use ( e.g. SBP prophylaxis in pt with very low ascitic protein <1 g/dL, although I am not aware of this specific indication applying to the patient based on chart review) eJrrod Padilla MD [facility] pager [phone]
[2018-04-09] MEDS: LACTULOSE SYRUP 20 GM/30 ML UDCUP PO SCH ×2 (16:17→20:28)
[2018-04-09 16:42] LABS: ANION GAP 10 (5-19); BLOOD UREA NITROGEN 21 mg/dL (7-20); CALCIUM 8.4 mg/dL (8.4-10.2); CARBON DIOXIDE 24 mmol/L (22-30); CHLORIDE 111 mmol/L (98-107); GLUCOSE 104 mg/dL (75-110); POTASSIUM 3.6 mmol/L (3.6-5.0); SODIUM 145.1 mmol/L (137-145)
[2018-04-09] MEDS: CEFTRIAXONE SODIUM 1,500 MG in NORMAL SALINE 100 ML IV SCH (17:33)
[2018-04-09] MEDS: TIZANIDINE HCL 4 MG TABLET PO SCH (20:52)
[2018-04-10] MEDS: CALCIUM CARBONATE 500 MG TAB.CHEW PO PRN ×4 (01:56→19:51)
[2018-04-10] MEDS: LACTULOSE SYRUP 20 GM/30 ML UDCUP PO SCH ×3 (02:52→21:27)
[2018-04-10] MEDS: POLYVINYL ALCOHOL 1.4% OPH SOLN 15 ML OU PRN ×2 (06:06→11:12)
[2018-04-10 07:36] LABS: HEMATOCRIT 33.8 % (37.9-51.0); HEMOGLOBIN 11.8 g/dL (13.5-17.0); MEAN CORPUSCULAR HEMOGLOBIN 33.2 pg (27.0-33.4); MEAN CORPUSCULAR VOLUME 95 fl (80-97); RED BLOOD COUNT 3.56 10^6/uL (4.35-5.55); WHITE BLOOD COUNT 3.1 10^3/uL (4.0-10.5)
[2018-04-10 07:40] LABS: ANION GAP 7 (5-19); BLOOD UREA NITROGEN 20 mg/dL (7-20); CALCIUM 8.2 mg/dL (8.4-10.2); CARBON DIOXIDE 25 mmol/L (22-30); CHLORIDE 111 mmol/L (98-107); GLUCOSE 88 mg/dL (75-110); POTASSIUM 3.8 mmol/L (3.6-5.0); SODIUM 142.5 mmol/L (137-145)
[2018-04-10] MEDS: OXYCODONE HCL IR 5 MG TABLET PO PRN ×2 (07:41→17:49)
[2018-04-10 08:27] LABS: PLATELET COUNT 57 10^3/uL (150-450)
[2018-04-10 08:31] LABS: ABSOLUTE LYMPHOCYTES# (MANUAL) 0.7 10^3/uL (0.5-4.7); ABSOLUTE MONOCYTES # (MANUAL) 0.2 10^3/uL (0.1-1.4); BAND NEUTROPHILS % (MANUAL) 3 % (3-5); BASOPHILS % (MANUAL) 1 % (0-2); EOSINOPHILS % (MANUAL) 9 % (0-6); LYMPHOCYTES % (MANUAL) 21 % (13-45); METAMYELOCYTES % (MANUAL) 1 % (0); MONOCYTES % (MANUAL) 6 % (3-13); SEGMENTED NEUTROPHILS % (MAN) 59 % (42-78); TOTAL CELLS COUNTED 100
[2018-04-10 08:32] LABS: OVALOCYTES 2+; PLATELET COMMENT DECREASED; POIKILOCYTOSIS 2+; POLYCHROMASIA SLIGHT; TOXIC GRANULATION SLIGHT
[2018-04-10] MEDS ORDERED: POTASSI CL 20 MEQ/50 ML RIDER 20 MEQ/50 ML RTUPB IV SCH (09:45)
[2018-04-10] MEDS: RIFAXIMIN 550 MG TABLET PO SCH ×2 (11:12→17:11)
[2018-04-10] MEDS: TAMSULOSIN HCL 0.4 MG CAP.SR.24H PO SCH (11:13)
[2018-04-10] MEDS: LANSOPRAZOLE 30 MG TAB.RAP.DR PO SCH (11:13)
[2018-04-10] MEDS: SPIRONOLACTONE 25 MG TABLET PO SCH (11:13)
[2018-04-10] MEDS: PRAMIPEXOLE DI-HCL 0.5 MG TABLET PO SCH ×2 (11:14→21:27)
[2018-04-10] MEDS: LIDOCAINE 5% (700 MG) TRANSDERMAL ADH..PATCH TP SCH (11:14)
[2018-04-10] MEDS: SERTRALINE HCL 50 MG TABLET PO SCH (11:14)
[2018-04-10] MEDS: NADOLOL 40 MG TABLET PO SCH (11:15)
[2018-04-10] MEDS: CEFTRIAXONE SODIUM 1,500 MG in NORMAL SALINE 100 ML IV SCH (17:11)
--- NOTE | 2018-04-10 17:24 | PDOC PROGRESS REPORT ---
Subjective Progress Note for:: 04/10/18 Subjective:: The patient is awake, and alert. He is complaining of pain with movement. He states that he takes percocet at home. Reason For Visit: RECURRENT FALSS,RHABDOMYOLYSIS,HEPATIC CIRRHOSIS Physical Exam Vital Signs: Temp Pulse Resp BP Pulse Ox 98.2 F 116 H 24 H 147/77 H 91 L 04/10/18 15:50 04/10/18 15:50 04/10/18 15:50 04/10/18 15:50 04/10/18 15:50 Intake & Output 04/09/18 04/10/18 04/11/18 06:59 06:59 06:59 Intake Total 1278 2573 Balance 1278 2573 Weight 78.1 kg 79.3 kg General appearance: PRESENT: no acute distress, cooperative, other - chronically ill appearing. Respiratory exam: PRESENT: other - No increased work of breathing.. ABSENT: rales, rhonchi, wheezes Cardiovascular exam: PRESENT: RRR, other - No lateral PMI. No thrills.. ABSENT : gallop, rubs, systolic murmur GI/Abdominal exam: PRESENT: ascites, normal bowel sounds, other - scaffoid. ABSENT: distended, hernia, mass, organolmegaly Extremities exam: ABSENT: clubbing, tenderness, +1 edema Neurological exam: PRESENT: alert, awake, oriented to person, oriented to place , oriented to time, oriented to situation, CN II-XII grossly intact. ABSENT: motor sensory deficit Psychiatric exam: PRESENT: appropriate affect, normal mood Skin exam: PRESENT: dry, intact, warm Results Laboratory Results: 04/10/18 06:49 04/10/18 06:49 04/10/18 04/10/18 06:49 06:49 WBC 3.1 L RBC 3.56 L Hgb 11.8 L Hct 33.8 L MCV 95 MCH 33.2 MCHC 35.0 RDW 17.0 H Plt Count 57 L Seg Neutrophils % Not Reportable Lymphocytes % Not Reportable Monocytes % Not Reportable Eosinophils % Not Reportable Basophils % Not Reportable Absolute Neutrophils Not Reportable Absolute Lymphocytes Not Reportable Absolute Monocytes Not Reportable Absolute Eosinophils Not Reportable Absolute Basophils Not Reportable Sodium 142.5 Potassium 3.8 Chloride 111 H Carbon Dioxide 25 Anion Gap 7 BUN 20 Creatinine 0.71 Est GFR ( Amer) > 60 Est GFR (Non-Af Amer) > 60 Glucose 88 Calcium 8.2 L Magnesium 2.0 Impressions: Abdomen Ultrasound 04/07/18 00:00 IMPRESSION: Markedly limited exam. Status post cholecystectomy. Splenomegaly. Hepatic steatosis; the intrahepatic and extrahepatic bile ducts are not adequately visualized, but did not appear dilated on CT imaging performed 04/06/2018. Mild ascites. Assessment & Plan - Diagnosis (1) Jaundice Is this a current diagnosis for this admission?: Yes Plan: Resolved (2) Dysarthria Is this a current diagnosis for this admission?: Yes (3) Cirrhosis Qualifiers: Hepatic cirrhosis type: unspecified hepatic cirrhosis Ascites presence: with ascites Qualified Code(s): K74.60 - Unspecified cirrhosis of liver; R18.8 - Other ascites; R18.8 - Other ascites Is this a current diagnosis for this admission?: Yes Plan: Chronic. Continue lactulose and rifaximin. Spironolactone decreased by half due to hypotension on admission. Monitor volume status and blood pressure. Will restart diuretics. (4) Frequent falls Is this a current diagnosis for this admission?: Yes Plan: PT/OT eval and treat. Anticipate that the patient will need SNF at discharge. (5) Abrasion Is this a current diagnosis for this admission?: Yes Plan: Knees bialterally from frequent falls. (6) Acute encephalopathy Is this a current diagnosis for this admission?: Yes Plan: Resolved (7) Anemia Qualifiers: Anemia type: unspecified type Qualified Code(s): D64.9 - Anemia, unspecified Is this a current diagnosis for this admission?: Yes Plan: Patient has iron deficiency anemia. Will supplement. (8) Contusion Qualifiers: Encounter type: initial encounter Contusion area: knee Laterality: unspecified laterality Qualified Code(s): S80.00XA - Contusion of unspecified knee, initial encounter Is this a current diagnosis for this admission?: Yes Plan: To knees bilaterally due to falls. (9) Dehydration Is this a current diagnosis for this admission?: Yes Plan: Resolved. Will stop IV fluids. (10) End stage liver disease Is this a current diagnosis for this admission?: Yes Plan: Lactulose, rifaximin and reduced dose of spironolactone. I will restart lasix. Hold Nadolol. (11) Fall Qualifiers: Encounter type: initial encounter Qualified Code(s): W19.XXXA - Unspecified fall, initial encounter Is this a current diagnosis for this admission?: Yes Plan: PT/OT eval and treat. Anticipate need for DC to SNF. (12) Urinary tract infection Qualifiers: Urinary tract infection type: acute cystitis Hematuria presence: without hematuria Qualified Code(s): N30.00 - Acute cystitis without hematuria Is this a current diagnosis for this admission?: Yes Plan: Urine cultures demonstrate only mixed harvinder. I have read and appreciate Dr. Padilla's consult. I will stop the patient's antibiotics. - Time Time Spent with patient: 35 or more minutes Medications reviewed and adjusted accordingly: Yes Anticipated discharge: SNF
[2018-04-10] MEDS ORDERED: FUROSEMIDE 20 MG TABLET PO ONE (18:00)
[2018-04-10] MEDS: TIZANIDINE HCL 4 MG TABLET PO SCH (21:27)
[2018-04-11] MEDS: OXYCODONE HCL IR 5 MG TABLET PO PRN ×3 (01:55→18:34)
[2018-04-11] MEDS: CALCIUM CARBONATE 500 MG TAB.CHEW PO PRN ×3 (01:55→15:12)
[2018-04-11] MEDS: LACTULOSE SYRUP 20 GM/30 ML UDCUP PO SCH ×2 (05:36→15:12)
[2018-04-11] MEDS: POLYVINYL ALCOHOL 1.4% OPH SOLN 15 ML OU PRN (05:36)
[2018-04-11] MEDS ORDERED: FUROSEMIDE 20 MG TABLET PO SCH (10:00)
[2018-04-11] MEDS: SERTRALINE HCL 50 MG TABLET PO SCH (10:03)
[2018-04-11] MEDS: TAMSULOSIN HCL 0.4 MG CAP.SR.24H PO SCH (10:03)
[2018-04-11] MEDS: LANSOPRAZOLE 30 MG TAB.RAP.DR PO SCH (10:03)
[2018-04-11] MEDS: RIFAXIMIN 550 MG TABLET PO SCH ×2 (10:03→17:43)
[2018-04-11] MEDS: SPIRONOLACTONE 25 MG TABLET PO SCH (10:04)
[2018-04-11] MEDS: PRAMIPEXOLE DI-HCL 0.5 MG TABLET PO SCH (10:04)
[2018-04-11] MEDS: LIDOCAINE 5% (700 MG) TRANSDERMAL ADH..PATCH TP SCH (10:05)
[2018-04-11] MEDS: NADOLOL 40 MG TABLET PO SCH (10:05)
[2018-04-11 13:24] VITALS: BP 120/63
--- NOTE | 2018-04-11 13:55 | PDOC TRANSFER SUMMARY ---
General - Admit/Disc Date/PCP Admission Date/Primary Care Provider: 04/07/18 15:29 ARON FERGUSON Discharge Date: 04/11/18 - Discharge Diagnosis (1) Jaundice Is this a current diagnosis for this admission?: Yes (2) Dysarthria Is this a current diagnosis for this admission?: Yes (3) Cirrhosis Is this a current diagnosis for this admission?: Yes (4) Frequent falls Is this a current diagnosis for this admission?: Yes (5) Abrasion Is this a current diagnosis for this admission?: Yes (6) Acute encephalopathy Is this a current diagnosis for this admission?: Yes (7) Anemia Is this a current diagnosis for this admission?: Yes (8) Contusion Is this a current diagnosis for this admission?: Yes (9) Dehydration Is this a current diagnosis for this admission?: Yes (10) End stage liver disease Is this a current diagnosis for this admission?: Yes (11) Fall Is this a current diagnosis for this admission?: Yes (12) Urinary tract infection Is this a current diagnosis for this admission?: Yes - Additional Information Discharge Diet: Regular Prescriptions: Calcium Carbonate [Tums Chewable 500 mg Tab.chew] 500 mg PO Q6H PRN #30 tab.chew PRN Reason: Furosemide [Lasix 20 mg Tablet] 10 mg PO DAILY #15 tablet Polyvinyl Alcohol [Liquitears 1.4% Ophth Soln 15 ml] 1 drop OU Q4HP PRN #1 bottle PRN Reason: Spironolactone [Aldactone 25 mg Tablet] 25 mg PO DAILY #30 tablet Home Medications: Cyclobenzaprine HCl [Flexeril 10 mg Tablet] 10 mg PO BID 04/08/18 Nadolol [Corgard 40 mg Tablet] 40 mg PO DAILY 04/08/18 Oxycodone HCl [Oxy-Ir 5 mg Tablet] 5 mg PO Q12 04/08/18 Pramipexole Di-HCl [Mirapex 0.5 mg Tablet] 0.5 mg PO TID 04/08/18 Sertraline HCl [Zoloft 50 mg Tablet] 100 mg PO DAILY 04/08/18 Tamsulosin HCl [Flomax 0.4 mg Cap.sr] 0.4 mg PO DAILY 04/08/18 Calcium Carbonate [Tums Chewable 500 mg Tab.chew] 500 mg PO Q6H PRN #30 tab.chew 04/11/18 Furosemide [Lasix 20 mg Tablet] 10 mg PO DAILY #15 tablet 04/11/18 Lactulose [Cephulac Syrup 20 gm/30 ml Udcup] 20 gm PO Q8 30 Days #0 bottle 04/11 Lidocaine [Lidoderm 5% (700 mg) Transdermal Patch] 1 patch TP DAILY adh..patch 04/11/18 Polyvinyl Alcohol [Liquitears 1.4% Ophth Soln 15 ml] 1 drop OU Q4HP PRN #1 bottle 04/11/18 Rifaximin [Xifaxan 550 mg Tablet] 550 mg PO BID tablet 04/11/18 Spironolactone [Aldactone 25 mg Tablet] 25 mg PO DAILY #30 tablet 04/11/18 History of Present Illness Admission Date/PCP: 04/07/18 15:29 ARON FERGUSON History of Present Illness: RADHA YEBOAH JR is a 72 year old male who was discharged from [facility] after an inpatient stay at [place] in December. The patient states that during that inpatient stay in [place] it was felt that the doses of his home pain medications were too high. He states that they were reduced before he was discharged to [facility], but that while at [facility] they were again increased. The family states that the patient has been falling a lot. The patient's daughter who is at bedside states that the patient is very unstable on his feet. She also states that he is slurring his speech. The patient carries a past medical history positive for hepatitis C for which he has undergone treatment that he states "ruined his liver". He has portal hypertension and varices. In December he was found to have a MELD score of 15. He has chronic anemia and chronic pain as well as hypertension. Hospital Course Hospital Course: The patient was admitted to a medical bed. His narcotic pain medications were held. He was given lactulose and continued on his home medications as possible. He was given IV antibiotics to treat his urinary tract infection. Urine and blood cultures were drawn. Urine cultures grew out mixed urogenital harvinder and the blood cultures have had no growth. On the advise of infectious disease the patient's antibiotics have been discontinued. The patient remains very weak and unsteady on his feet. His hepatic encephalopathy has cleared, but I doubt that he is able to care for himself at his basic mental status. He will be discharged to SNF today for rehab. This patient may end up requiring permanent placement. Physical Exam Vital Signs: Temp Pulse Resp BP Pulse Ox 97.2 F 105 H 21 H 120/63 92 04/11/18 11:21 04/11/18 11:21 04/11/18 11:21 04/11/18 11:21 04/11/18 11:21 Intake & Output 04/10/18 04/11/18 04/12/18 06:59 06:59 06:59 Intake Total 2573 1572 Output Total 300 Balance 2573 1272 Weight 79.3 kg 80.1 kg General appearance: PRESENT: no acute distress Respiratory exam: PRESENT: other - No increased work of breathing.. ABSENT: rales, rhonchi, wheezes Cardiovascular exam: PRESENT: RRR. ABSENT: gallop, rubs, systolic murmur Pulses: PRESENT: other - Diminished distal pulses. GI/Abdominal exam: PRESENT: ascites, normal bowel sounds, soft, other - Scaffoid.. ABSENT: distended, hernia, mass, organolmegaly Extremities exam: ABSENT: clubbing, tenderness, +1 edema Neurological exam: PRESENT: alert, awake, oriented to person, oriented to place , oriented to time, oriented to situation, other Psychiatric exam: PRESENT: appropriate affect, normal mood, other - Poor insight into his physical well being and situation. Skin exam: PRESENT: dry, intact, warm Results Laboratory Results: 04/10/18 06:49 04/10/18 06:49 Impressions: Abdomen Ultrasound 04/07/18 00:00 IMPRESSION: Markedly limited exam. Status post cholecystectomy. Splenomegaly. Hepatic steatosis; the intrahepatic and extrahepatic bile ducts are not adequately visualized, but did not appear dilated on CT imaging performed 04/06/2018. Mild ascites. Transfer Plan - Disposition Transfer Plan: Pt will discharge to SNF. - Time Spent with Patient Time spent with patient: Greater than 30 Minutes Qualifiers - * PATIENT BEING DISCHARGED WITH ANY OF THE FOLLOWING DIAGNOSIS: No Plan Time Spent: Greater than 30 Minutes
== END 2018-04-11 19:02 | DRG 442 ==
LOC: ER 11:10 → EH 15:29 → OBSVTOIN 15:29 → 5 16:35
PROVIDERS: ADMIT Student in an Organized Health Care Education/Training Program; ATTEND Student in an Organized Health Care Education/Training Program
DX: K72.90 Hepatic failure, unspecified without coma (principal); R18.8 Other ascites; N39.0 Urinary tract infection, site not specified; D64.9 Anemia, unspecified; K21.9 Gastro-esophageal reflux disease without esophagitis; B19.20 Unspecified viral hepatitis C without hepatic coma; I10 Essential (primary) hypertension; K74.60 Unspecified cirrhosis of liver; R47.1 Dysarthria and anarthria; S80.212A Abrasion, left knee, initial encounter; S80.211A Abrasion, right knee, initial encounter; G89.29 Other chronic pain; F17.210 Nicotine dependence, cigarettes, uncomplicated; W19.XXXA Unspecified fall, initial encounter; Y93.9 Activity, unspecified; Y92.9 Unspecified place or not applicable; Z60.2 Problems related to living alone
CPT/HCPCS: 36415; 70450; 71260; 72125; 74177; 76700; 80048; 80053; 80074; 81001; 82140; 82550; 82607; 82728; 82746; 83540; 83550; 83735; 84425; 84484; 85025; 85045; 87040; 87086; 93005; 93010; 96360; 99285; A9270-GY; G8978-GP; G8979-GP; G8987-GO; G8988-GO; J0696; J3490; J7030; J7120

== ENCOUNTER 2018-06-18 03:11 | Emergency (ER) | payer MEDICARE, MEDICAID ==
--- NOTE | 2018-06-18 03:46 | ER Document Report ---
ED General - General Stated Complaint: RIB PAIN Time Seen by Provider: 06/18/18 03:31 Notes: Patient is a 72-year-old male who stays at the longterm. He has history of frequent falls. On Sunday he fell. At that time refused to be transferred. Tonight he agreed. He denies any further falls since Sunday. He complains of pain mainly no evidence of his right ribs. He does have some bruising on that side. He denies any associated abdominal pain. Does have pain when he takes a deep breath or coughs. He is unsure if he hit his head. Denies any hip pain. No extremity pain; however, he mentions that he is having difficulty bearing weight on his left leg. TRAVEL OUTSIDE OF THE [place] IN LAST 30 DAYS: No - Related Data Allergies/Adverse Reactions: No Known Allergies Allergy (Verified 01/26/17 20:24) Past Medical History - Social History Smoking Status: Unknown if Ever Smoked Frequency of alcohol use: former alcohol abuse Family History: CAD, Hypertension - Past Medical History Cardiac Medical History: Reports: Hx Hypertension Denies: Hx Coronary Artery Disease, Hx Heart Attack Pulmonary Medical History: Reports: Hx Asthma - as a child Denies: Hx Bronchitis, Hx COPD, Hx Pneumonia Neurological Medical History: Denies: Hx Cerebrovascular Accident, Hx Seizures Renal/ Medical History: Denies: Hx Peritoneal Dialysis GI Medical History: Reports: Hx Cirrhosis, Hx Gastroesophageal Reflux Disease, Hx Hepatitis - HEP. C Musculoskeletal Medical History: Reports Hx Arthritis, Reports Hx Musculoskeletal Trauma Psychiatric Medical History: Reports: Hx Depression Infectious Medical History: Reports: Hx Hepatitis - HEP. C Past Surgical History: Reports: Hx Cholecystectomy, Hx Orthopedic Surgery - L-4 VERTEBROPLASTY 01/25/17, Other - L-4 VERTEBROPLASTY 01/25. Denies: Hx Pacemaker - Immunizations Hx Diphtheria, Pertussis, Tetanus Vaccination: Yes Review of Systems - Review of Systems Notes: My Normal Review Basic REVIEW OF SYSTEMS: CONSTITUTIONAL : Denies fever, chills, or sweats. Denies recent illness. EENT: Denies eye, ear, throat, or mouth pain or symptoms. Denies nasal or sinus congestion. CARDIOVASCULAR: Pain in right ribs. RESPIRATORY: Denies cough, cold, or chest congestion. Denies shortness of breath, difficulty breathing, or wheezing. GASTROINTESTINAL: Denies abdominal pain. Denies nausea, vomiting, or diarrhea. Denies constipation. Last BM: GENITOURINARY: Denies difficulty urinating, painful urination, burning, frequency, or blood in urine. MUSCULOSKELETAL: Pain with bearing weight on left leg. SKIN: Denies rash or skin lesions. NEUROLOGICAL: Denies altered mental status or loss of consciousness. Denies headache. Denies weakness or paralysis or loss of use of either side. Denies problems with gait or speech. Denies sensory or motor loss. ALL OTHER SYSTEMS REVIEWED AND NEGATIVE. Physical Exam - Vital signs Vitals: Temp Pulse Resp BP Pulse Ox 97.8 F 70 26 H 107/53 L 96 06/18/18 03:19 06/18/18 03:19 06/18/18 03:19 06/18/18 03:19 06/18/18 03:19 - Notes Notes: General Appearance: Well nourished, alert, cooperative, no acute distress, no obvious discomfort. Well-appearing. Vitals: reviewed, See vital signs table. Head: no swelling or tenderness to the head. No evidence of trauma to the head on exam. Eyes: PERRL, EOMI, Conjuctiva clear Mouth: No decreasd moisture Throat: No tonsillar inflammation, No airway obstruction, No lymphadenopathy Neck: Supple, no neck tenderness, no step-offs or deformities. Lungs: No wheezing, No rales, No rhonci, No accessory muscle use, good air exchange bilaterally. Heart: Normal rate, Regular rythm, No murmur, no rub Abdomen: Normal BS, soft, No rigidity, patient has some bruising along the right lower ribs. She has absolutely no pain to palpation of his entire abdomen. He does have some pain palpation over the right ribs but it is mild. Extremities: strength 5/5 in all extremities, good pulses in all extremities, no pain with palpation or range of motion of any of his 4 extremities including left hip. He does have some pain when I do axial loading of the left lower extremity. This pain appears to be more in his pelvis or hip region. Skin: warm, dry, appropriate color, no rash Neuro: speech clear, oriented x 3, normal affect, responds appropriately to questions. Course - Re-evaluation Re-evalutation: 06/18/18 05:40 I did call and speak with Dr. Amaya about the finding on the x-ray of the left acetabulum fracture. He recommends obtaining a CT scan. If it does show that the patient does have a acetabular fracture than the patient can be kept nonweightbearing and discharged back to the longterm and have outpatient follow-up with orthopedist. 06/18/18 06:[address] scan report I did review with Dr. Amaya. Plan is to continue to to treat the patient out patiently with making him nonweightbearing and transfers only. I did call [facility] and spoke with Shantal who is the nurse who cares for him there. I informed her of the plan and she is understanding of this. He is to follow-up outpatient with orthopedist clinic. I explained the plan to the patient he is agreeable to it as well. Patient's rib x-ray was negative for any fracture. He did have some bruising over the right lower ribs. I do not feel that he needs a CT scan of his abdomen is as follows several days ago and he has absolutely no pain to palpation of his abdomen. Dictation of this chart was performed using voice recognition software; therefore, there may be some unintended grammatical errors. - Vital Signs Vital signs: Temp Pulse Resp BP Pulse Ox 97.8 F 70 14 90/55 L 93 06/18/18 03:19 06/18/18 03:19 06/18/18 04:01 06/18/18 04:01 06/18/18 04:01 Discharge - Discharge Clinical Impression: Acetabular fracture Qualifiers: Encounter type: initial encounter Sublocation of acetabulum: unspecified portion of acetabulum Fracture type: closed Fracture alignment: nondisplaced Laterality: left Qualified Code(s): S32.402A - Unspecified fracture of left acetabulum, initial encounter for closed fracture Condition: Good Disposition: HOME, SELF-CARE Additional Instructions: Mr. Hale has an acetabular fracture on the left side. This fracture does not require surgery.Mr. Hale must be non weight bearing on the left leg. He can move from his bed through transfers only. Please have him return to the ER if he has intractable pain, severe abdominal pain, difficulty breathing, or appears unwell. Referrals: ANNALEE AMAYA DO [ACTIVE STAFF] - Follow up in 1 week
--- NOTE | 2018-06-18 04:51 | RADIOLOGY REPORT (SQ) ---
EXAM DESCRIPTION: XR RIBS UNILATERAL WITH CHEST COMPLETED DATE/TME: 06/18/2018 03:39 CLINICAL HISTORY: 72 years, Male, trauma COMPARISON: None. NUMBER OF VIEWS: One TECHNIQUE: AP view of the chest and right RIBS LIMITATIONS: None. FINDINGS: There are mildly displaced fractures involving the right sixth and seventh ribs. There are airspace opacities within the right lung base with a small right pleural effusion/hemothorax. There is subcutaneous emphysema along the right chest. There is no pneumothorax. The heart is at the upper limit of normal in size. IMPRESSION: Mildly displaced right-sided rib fractures with airspace opacities within the right lung, likely representing pulmonary contusions. Small right-sided pleural effusion/hemothorax. Small amount of subcutaneous emphysema along the right chest wall. 2011 [employer]- All Rights Reserved
--- NOTE | 2018-06-18 04:56 | RADIOLOGY REPORT (SQ) ---
EXAM DESCRIPTION: XR PELVIS 1-2 VIEWS COMPLETED DATE/TME: 06/18/2018 03:39 CLINICAL HISTORY: 72 years, Male, trauma COMPARISON: None. NUMBER OF VIEWS: 2v LIMITATIONS: None. FINDINGS: Nondisplaced fracture/defect of the left acetabulum. Partially imaged moderate compression deformity/vertebroplasty at L4. IMPRESSION: 1. Nondisplaced fracture/defect of the left acetabulum. 2. Partially imaged moderate compression deformity/vertebroplasty at L4.
--- NOTE | 2018-06-18 04:59 | RADIOLOGY REPORT (SQ) ---
EXAM DESCRIPTION: CT HEAD WITHOUT IV CONTRAST COMPLETED DATE/TME: 06/18/2018 03:39 CLINICAL HISTORY: 72 years Male, trauma COMPARISON: 7.14.18 TECHNIQUE: No contrast. This exam was performed according to our departmental dose-optimization program, which includes automated exposure control, adjustment of the mA and/or kV according to patient size and/or use of iterative reconstruction technique. FINDINGS: No hemorrhage or infarct. No mass, mass effect, or midline shift. White matter microangiopathy, parenchymal volume loss, and atherosclerosis. 1.1 cm left maxillary retention cyst-mucocele. Brain and extra-axial structures appear otherwise intact. IMPRESSION: No acute findings.
[2018-06-18] MEDS ORDERED: OXYCODONE HCL IR 5 MG TABLET PO ONE (06:00)
--- NOTE | 2018-06-18 06:17 | RADIOLOGY REPORT (SQ) ---
EXAM DESCRIPTION: CT PELVIS WITHOUT IV CONTRAST, CT LOWER EXTREMITY WITHOUT IV CONTRAST COMPLETED DATE/TME: 06/18/2018 05:27 CLINICAL HISTORY: 72 years Male, fall trauma Comparison: 04/06/18 Technique: No contrast. Coronal and sagittal reformat. This exam was performed according to our departmental dose-optimization program, which includes automated exposure control, adjustment of the mA and/or kV according to patient size and/or use of iterative reconstruction technique.[facility]: Dose Right [facility]: CareDose [facility]: Dose Right [facility]: Teradose 4D [facility]: feedPack LIMITATIONS: None Findings: Extensive comminuted nondisplaced fracture of the left acetabulum including the anterior and posterior columns. Asymmetric 1.3 cm thickening of the left obturator internus probably due to hemorrhage-swelling. Bone demineralization. Atherosclerosis. 0.5 cm layered bladder stone. Moderate L4 anterior vertebral compression deformity with vertebroplasty. Impression: 1. New, comminuted fracture of the left acetabulum. No evidence of healing. 2. Stable, moderate L4 anterior vertebral compression deformity with vertebroplasty, stable.
--- NOTE | 2018-06-18 06:17 | RADIOLOGY REPORT (SQ) ---
EXAM DESCRIPTION: CT PELVIS WITHOUT IV CONTRAST, CT LOWER EXTREMITY WITHOUT IV CONTRAST COMPLETED DATE/TME: 06/18/2018 05:27 CLINICAL HISTORY: 72 years Male, fall trauma Comparison: 04/06/18 Technique: No contrast. Coronal and sagittal reformat. This exam was performed according to our departmental dose-optimization program, which includes automated exposure control, adjustment of the mA and/or kV according to patient size and/or use of iterative reconstruction technique.[facility]: Dose Right [facility]: CareDose [facility]: Dose Right [facility]: Teradose 4D [facility]: Appsindep LIMITATIONS: None Findings: Extensive comminuted nondisplaced fracture of the left acetabulum including the anterior and posterior columns. Asymmetric 1.3 cm thickening of the left obturator internus probably due to hemorrhage-swelling. Bone demineralization. Atherosclerosis. 0.5 cm layered bladder stone. Moderate L4 anterior vertebral compression deformity with vertebroplasty. Impression: 1. New, comminuted fracture of the left acetabulum. No evidence of healing. 2. Stable, moderate L4 anterior vertebral compression deformity with vertebroplasty, stable.
[2018-06-18 08:43] VITALS: BP 92/55
== END 2018-06-18 09:37 | disposition home or self-care (01) ==
LOC: ER 03:11
DX: S32.402A Unspecified fracture of left acetabulum, initial encounter for closed fracture (principal); S20.20XA Contusion of thorax, unspecified, initial encounter; R07.81 Pleurodynia; M79.605 Pain in left leg; W19.XXXA Unspecified fall, initial encounter; I10 Essential (primary) hypertension
CPT/HCPCS: 99284; 72170; 71101; 70450; 72192; 73700; A9270